=== PATIENT | male | born 1960 | race Caucasian/White ===

== ENCOUNTER 2022-11-17 22:01 | Emergency (ER) | payer OTHER, SELFPAY ==
--- NOTE | ~2022-11-17 | XR_ITS ---
EXAM: XR hand LT min 3V DATE: 11/17/2022 22:25 HISTORY: 4TH digit degloving . COMPARISON: None available. FINDINGS: Normal mineralization. Osseous avulsion of a portion of the tip of the fourth distal phala nge. Nondisplaced oblique intra-articular fracture of proximal aspect of the fourth distal phalange. No lytic or blastic lesion. Scattered degenerative changes. No erosion or periosteal change. Linear r adiopaque foreign body in the palmar soft tissues, roughly at the level of the distal aspect of the f ourth and fifth metacarpal interspace. Soft tissue defect over the tip of the fourth digit. IMPRESSION: Osseous avulsion of a portion of the tip of the left fourth distal phalange, with overlyi ng soft tissue defect. Nondisplaced oblique intra-articular fracture of the proximal aspect of the le ft fourth distal phalange. Linear radiopaque foreign body in the palmar soft tissues. Reviewed, dictated and finalized at location K. IMPRESSION: Osseous avulsion of a portion of the tip of the left fourth distal phalange, with overlying soft tissue defect. Nondisplaced oblique intra-articul ar fracture of the proximal aspect of the left fourth distal phalange. Linear r adiopaque foreign body in the palmar soft tissues.
[2022-11-17 22:07] VITALS: BP 187/99; PULSE 64; RESP 18; TEMP 37.2; O2SAT 97
[2022-11-17] MEDS: TETANUS,DIPHTHERIA,AC PERTUSSIS ADULT (0.5 ML) BOOSTRIX IM (22:28)
--- NOTE | 2022-11-17 22:34 | ED.WOUNDLAC ---
HPI - Wound/Laceration General Chief Complaint: Wound/Laceration Stated Complaint: left middle finger laceration Time Seen by Provider: 11/17/22 22:14 History of Present Illness HPI narrative: This is a 62-year-old male with no significant past medical history, who presents to the emergency department after getting his left fourth finger caught in a treadmill. He states the treadmill ripped the skin off the end of his finger. He denies other injury or loss of consciousness. Related Data Allergies Allergy/AdvReac Type Severity Reaction Status Date / Time No Known Allergies Allergy Verified 11/17/22 22:03 Review of Systems Review of Systems: CONSTITUTIONAL: Denies fever, chills, or sweats. CARDIOVASCULAR: Denies chest pain, palpitations, or edema. RESPIRATORY: Denies cough or dyspnea. GASTROINTESTINAL: Denies abdominal pain, nausea, vomiting, or diarrhea. MUSCULOSKELETAL: Left hand pain denies back pain, or myalgia. NEUROLOGIC: Denies headache, numbness, dizziness, or weakness. PSYCHIATRIC: Denies anxiety or depression. [facility] Social History Social History (Updated 11/18/22 @ 06:33 by Bubba Valera MD) Smoking status: Never smoker Alcohol intake: never Substance use: never Exam Narrative: GENERAL: Well-developed, well-nourished, appears anxious HEAD: Normocephalic, atraumatic. EYES: PERRLA and EOMI. ENT: Nares clear, no rhinorrhea or epistaxis. Mucous membranes moist. Oropharynx without tonsillar hypertrophy exudate or other lesions. CHEST: Clear to auscultation. No respiratory distress. No wheezes rales or rhonchi HEART: Regular rate and rhythm. No murmur heard. Normal peripheral pulses. ABDOMEN: Soft, nontender, nondistended, normal active bowel sounds. EXTREMITIES: The skin and nail of the left distal fourth finger is completely and circumferentially avulsed from approximately half of the distal phalange. There is exposed bone with a small amount of active bleeding which stops with direct pressure. Range of motion of all fingers intact. No edema. SKIN: Otherwise warm, dry, no rash. NEURO: No focal deficits. Alert and oriented x3. PSYCH: Normal mood and affect. Course Course Emergency Course: 22:34 - X-ray demonstrates a fracture at the proximal, lateral aspect of the fourth distal phalanx in addition to fracture of the most distal portion of the same distal phalanx. Discussed the patient with hand surgeon, Dr. Amaya who recommends antibiotics, tetanus vaccination wound coverage with Xeroform and follow-up first thing in the morning for surgical evaluation. Discussed findings and recommendations with the patient and his spouse, who voiced understanding and are comfortable with the plan. All questions answered to their satisfaction. 22:45 - Digital block performed by me for pain control. Vital Signs Vital signs: Vital Signs Temperature 98.9 F 11/17/22 22:07 Pulse Rate 64 11/17/22 22:07 Respiratory Rate 18 11/17/22 22:07 Blood Pressure 187/99 H 11/17/22 22:07 Pulse Oximetry 97 11/17/22 22:07 Oxygen Delivery Room Air 11/17/22 22:07 Temperature 98.9 F 11/17/22 22:07 Pulse Rate 64 11/17/22 22:07 Respiratory Rate 18 11/17/22 22:07 Blood Pressure 187/99 H 11/17/22 22:07 Pulse Oximetry 97 11/17/22 22:07 Oxygen Delivery Room Air 11/17/22 22:07 Procedures Nerve Block Nerve Block 1: Nerve block date: 11/17/22 Nerve block time: 22:45 Time out performed: Yes Local Anesthetic: lidocaine 2% Amount of anesthesia used (mL): 2 Side: left Nerve Blocks: digital (Left 4th digit) Procedure Successful: Yes Patient Tolerated Procedure: well and no complications Complications: none MDM - Wound/Laceration MDM Narrative Medical decision making narrative: Plan: Imaging, pain control, hand surgery consultation, antibiotics, tetanus vaccination, reassess Differential Diagnosis Differential diagnosis: Likely
[2022-11-17] MEDS: ceFAZolin 2 GM/D5W 50 ML 2 GM/50 ML BAG IVPB (22:49)
[2022-11-17] MEDS: oxyCODONE/ACETAMINOPHEN (*CRX) 5-325 MG TABLET 1 TABLET PO (22:54)
[2022-11-17] MEDS: LIDOCAINE 1% BUFFERED WITH 8.4% SODIUM BICARB 1 ML SYRINGE 20 ML INFILTRATE (23:03)
== END 2022-11-17 23:18 | disposition home or self-care (01) ==
PROVIDERS: Emergency Provider Preventive Medicine Aerospace Medicine; PCP Internal Medicine
DX: S61.215A Laceration without foreign body of left ring finger without damage to nail, initial encounter (principal); W23.0XXA Caught, crushed, jammed, or pinched between moving objects, initial encounter; Z23 Encounter for immunization
CPT/HCPCS: 64450; 73130; 90471; 90715; 96365; 99284; A9270; J0690

== ENCOUNTER 2023-04-01 08:19 | Outpatient (CLI) | payer OTHER, SELFPAY ==
--- NOTE | 2023-04-14 12:17 | WPDSLEEPSTUD ---
Sleep Study Date of Study: 04/01/23 Ordering Provider: Anthony Mazariegos, Interpreting Physician: Loretta Veronica MD Sleep Study Type: Split Polysomnogram Height: 1.73 m Weight: 122.47 kg Body Mass Index: 41.0 Neck Circumference (inches): 19 [place]: 13 Reason for Sleep Study Long history of obstructive sleep apnea, needs new equipment Sleep History Krish Leyva is a 62-year-old man who was diagnosed with obstructive sleep apnea 17 years ago, needs new equipment. He has hypertension. 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 He does not awaken from sleep feeling short of breath. He occasionally awakens at night with heartburn, belching or coughing. Using CPAP, he does not snore, he rarely awakens when he has a cold. He does not wake up gasping for breath at night. Without CPAP he occasionally has breathing problems at night observed by others. Without CPAP he occasionally sweats excessively at night. With CPAP he does not have palpitations at night, does not fall asleep during the day, does not fall asleep involuntarily or while driving. He does not have loss of muscle tone with strong emotion. He does not have daytime sleepiness using CPAP. He does not feel paralyzed on waking or falling asleep. He rarely has vivid dreamlike scenes upon awakening or falling asleep. Does not feel afraid to go to sleep. He does not have nightmares. He rarely remembers his dreams. He occasionally has racing thoughts. He occasionally feels sad or depressed. He rarely has anxiety. He occasionally has muscular tension. He rarely notices parts of his body jerking. He frequently kicks at night. He occasionally has crawling and aching feelings in his legs. He occasionally has leg pain at night. He does not have morning jaw pain. He occasionally grinds his teeth during sleep. As a child he had frequent bruxism. He occasionally is bothered by pain during the day. He rarely is awakened by pain at night. He occasionally wakes up feeling stiff the morning. He rarely wakes up with sore or achy muscles. He rarely wakes up with pain in the neck and spine. Normal bedtime is between 10:00 p.m. and 10:30 p.m.. He falls asleep within 5 minutes, sometimes 10 minutes but occasionally up to 1/2 hour. He wakes sometimes not at all at night, sometimes up to 3 times at night. He is able to fall asleep immediately after waking. His wake time during the week is 3:50 a.m.. On weekends, bedtime is between 11:00 p.m. and 12 midnight, and wake time is 8:30 a.m.. He estimates getting between 6 hours and 9 hours of sleep at night. Sometimes he takes naps on the weekends. A short nap lasting 10 or 15 minutes may be refreshing. He is usually drowsy for an hour after waking. He feels better in the evening after work, compared to other times of day. Habits: Quit tobacco 1997. Caffeine 2 cups a day. 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
[2023-04-14 12:33] VITALS: BMI 41.0
== END 2023-04-02 07:21 | disposition home or self-care (01) ==
PROVIDERS: PCP Internal Medicine; Visit Provider Internal Medicine
DX: G47.30 Sleep apnea, unspecified (principal)
CPT/HCPCS: 95811

== ENCOUNTER 2023-07-27 15:28 | Outpatient (CLI) | payer OTHER, SELFPAY ==
--- NOTE | ~2023-07-27 | MR_ITS ---
MRA HEAD History: Aneurysm Technique: 3D time of flight MRA of the head is performed. Findings: The right and left distal vertebral arteries and the basilar and posterior cerebral arterie s are normal. Right and left distal internal carotid arteries and anterior and middle cerebral arteri es are normal. There is no aneurysm, stenosis, or occlusion. Impression: No occlusion, stenosis, or aneurysm. Reviewed, dictated and finalized at location . 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
== END 2023-07-27 15:29 | disposition home or self-care (01) ==
PROVIDERS: PCP Internal Medicine; Visit Provider Family Medicine
DX: Z82.49 Family history of ischemic heart disease and other diseases of the circulatory system (principal)
CPT/HCPCS: 70544

== ENCOUNTER 2023-10-28 04:50 | Day surgery (SDC) | payer OTHER, SELFPAY ==
[2023-10-06 09:44] VITALS: BMI 41.8
--- NOTE | 2023-10-26 15:26 | SUR.PREOP ---
Pt 10/28/23 appointment time and date confirmed.
[2023-10-28 06:24] VITALS: BP 170/90; PULSE 66; RESP 20; TEMP 36.2; O2SAT 98
[2023-10-28] MEDS: LACTATED RINGERS 1,000 ML 150 ML IV CONT (06:43)
--- NOTE | 2023-10-28 06:44 | P.PNAN_ITS ---
Anes - Initial Pre Proc Eval Procedure: Operation Date: 10/28/23 07:30 Proposed Procedures p Screening Colonoscopy - Kirit Lopez MD Date/Time: 10/28/23 06:44 Surgeon: Kirit Lopez MD Pre Op Diagnosis: neoplasm screening Patient Data Age: 63 Gender: M Height: 1.73 m Weight: 126.7 kg Last Vital Signs Temp 36.2 C L 10/28/23 06:24 Pulse 66 10/28/23 06:24 Resp 20 10/28/23 06:24 BP 170/90 H 10/28/23 06:24 Pulse Ox 98 10/28/23 06:24 O2 Del Method Room Air 10/28/23 06:24 Allergies Allergy/AdvReac Type Severity Reaction Status Date / Time No Known Allergies Allergy Verified 10/28/23 06:21 Home Medications Medication Instructions Recorded Confirmed Type No Home Medications 10/06/23 10/06/23 History Patient hx anesthesia problems: none Family hx anesthesia problems: none Results Review: All pre-operative results and documents have been reviewed as part of the pre-operative evaluation. 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 Informed Consent: The patient's anesthetic plan and its attendant risks and benefits were discussed with the patient/family/POA. Questions were solicited and answers provided to the satisfaction of the patient/family/POA.
--- NOTE | 2023-10-28 07:32 | P.HP_ITS ---
History of Present Illness History of Present Illness Consent: Risks, benefits, and alternatives have been discussed and questions answered. Patient agrees to proceed with procedure. Chief complaint: neoplasm screening Narrative: Krish Leyva is a 63 year old male here for screening colonoscopy, last one 10 years ago Review of Systems Constitutional: Constitutional: Denies headache(s) and Denies weakness Eyes: Eyes: Denies blurry vision ENT: Reports Normal hearing present, Denies headache(s) and Denies neck pain Cardiovascular: Cardiovascular: Denies chest pain and Denies dyspnea Respiratory: Respiratory: Denies dyspnea Gastrointestinal: Gastrointestinal: Reports no additional gastrointestinal complaints Genitourinary: Genitourinary: Denies dysuria Musculoskeletal: Musculoskeletal: Denies neck pain Integumentary/Breasts: Skin/Breast: Denies dry skin Neurologic: Reports Normal hearing present, Denies headache(s) and Denies weakness Psychiatric: Psychiatric: Denies anxiety Endocrine: Endocrine: Denies change in body appearance Hematologic/Lymphatic: Hematologic/Lymphatic: Denies easy bleeding Allergic/Immunologic: Allergic/Immunologic: Denies urticaria PMFSH Past Medical History Medical History (Updated 10/28/23 @ 07:33 by Kirit Lopez MD) Colon cancer screening Hypertension Obstructive sleep apnea Social History Social History Smoking status: Never smoker Alcohol intake: current Drinks per week: 18 Alcohol use details: on weekends Substance use: never Substance use type: does not use Living arrangements: with family 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 Spiritual care concerns: No Meds Home Medications and Allergies Home Medications Medication Instructions Recorded Confirmed Type No Home Medications 10/06/23 10/06/23 History Allergies Allergy/AdvReac Type Severity Reaction Status Date / Time No Known Allergies Allergy Verified 10/28/23 06:21 Vital Signs Vital Signs - 24 hr 10/28/23 06:24 Temperature 97.2 F L Pulse Rate 66 Respiratory Rate 20 Blood Pressure 170/90 H Pulse Oximetry 98 Oxygen Delivery Room Air Exam Const: General: comfortable and no acute distress HENMT: Face/Nose/Sinus: Normal nares present Eyes: General: appearance normal, both eyes and all related structures Neck: Neck: no JVD Resp: Auscultation: clear to auscultation bilaterally Cardio: Rate: regular rate Rhythm: regular rhythm GI: Inspection: non-distended GI Palp: Yes Soft to palpation Skin: General skin exam: normal color Neuro: General: gait normal Speech: normal speech Extrem: General: normal to inspection Psych: Mental Status: mental status grossly normal Assessment and Plan Assessment and plan (1) Colon cancer screening: Code(s): Z12.11 - Encounter for screening for malignant neoplasm of colon Status: Acute Assessment and Plan: colonoscopy
[2023-10-28 07:47] VITALS: BP 129/82; PULSE 64; RESP 14; O2SAT 96
[2023-10-28 07:57] VITALS: BP 132/87; PULSE 61; RESP 12; O2SAT 98
[2023-10-28 08:07] VITALS: BP 134/72; PULSE 63; RESP 16; O2SAT 98
== END 2023-10-28 08:14 | disposition home or self-care (01) ==
PROVIDERS: PCP Family Medicine; Visit Provider Internal Medicine Gastroenterology
PROC: 0DJD8ZZ Inspection of Lower Intestinal Tract, Via Natural or Artificial Opening Endoscopic (ICD-10-PCS; CPT 45378; principal; 2023-10-28 07:30)
DX: Z12.11 Encounter for screening for malignant neoplasm of colon (principal); D12.5 Benign neoplasm of sigmoid colon; K57.30 Diverticulosis of large intestine without perforation or abscess without bleeding; I10 Essential (primary) hypertension; G47.33 Obstructive sleep apnea (adult) (pediatric); E66.01 Morbid (severe) obesity due to excess calories; Z68.41 Body mass index [BMI] 40.0-44.9, adult
CPT/HCPCS: 45385; 88305; J2704; J7120

== ENCOUNTER 2024-08-13 08:04 | Outpatient (CLI) | payer OTHER, SELFPAY ==
--- NOTE | ~2024-08-13 | US_ITS ---
EXAMINATION: US aorta DATE: 08/13/2024 09:04 INDICATION: Benign hypertension. TECHNIQUE: Grayscale, color Doppler, and pulsed Doppler images of the aorta and common iliac arteries were obtained. COMPARISON: None. FINDINGS: The proximal aorta measures 2.9 cm. The mid aorta measures 2.3 cm. The distal aorta measures 2.1 cm. The right and left common iliac arteries are not visualized. IMPRESSION: 1. Normal caliber abdominal aorta. Reviewed, dictated and finalized at location A.
--- OUTSIDE RECORDS SUMMARY | 2024-08-19 03:21 | XMS_ITS | Encounter Summary ---
Author Organization [facility] Address [address] [place] [address] Care Team Providers Care Agriculture Mechanic Name Role Phone Anthony Mazariegos MD Primary Care Provider [phone] Encounter Details Date Type Department Care Team (Late st Contact Info) Description 12/13/2023 External Device Data [facility] ABSTRACTION Provider, Abstract NO ADDRESS ON FILE Social History Tobacco Use Types Packs/Day Years Used Date Smoking Tobacco: Former Cigarettes 1 20 0 03/02/1978 - 03/02/1998 Smokeless Tobacco: Never Comments:21 years since my w kala & I quit Alcohol Use Standard Drinks/Week Comments Yes 18 (1 standard drink = 0.6 oz pure alcohol) drink Tuesday and Tuesday Sex and Gender Information Value Date Recorded Sex Assigned at Not on file Gender Identity Not on file Sexual Orientation Not on file documented as of this encounter Plan of Treatment Upcoming Encounters Date Type Department Care Team (Late st Contact Info) Description 10/08/2024 1:30 PM INTEGRATED 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
--- OUTSIDE RECORDS SUMMARY | 2024-08-19 03:21 | XMS_ITS | Encounter Summary ---
Author Organization [facility] Address [address] [place] [address] Care Team Providers Care Hospice Superintendent Name Role Phone Anthony Mazariegos MD Primary Care Provider [phone] Reason for Visit * Reason Comments Hypertension BP Follow up patient takes a natural supplement for his blood pressure. Encounter Details Date Type Department Care Team (Late st Contact Info) Description 12/16/2023 3:00 PM CDT Office Visit [facility] at Work [employer] [place] [address] [place] [address] Sarah Weiss, [facility] [address] [place] [address] Elevated BP without diagnosis of hypertension (Primary Dx); Screening for prostate cancer Social History Tobacco Use Types Packs/Day Years [...] on file documented as of this encounter Last Filed Vital Signs Vital Sign Reading Time Taken Comments Blood Pressure 132/84 12/16/2023 2:46 PM CDT Pulse 76 12/16/2023 2:46 PM CDT Temperature 37.6 ??C (99.7 ??F) 12/16/2023 2:46 PM CD T Respiratory Rate 18 12/16/2023 2:46 PM CDT Oxygen Saturation 97% 12/16/2023 2:46 PM CDT Inhaled Oxygen Concentration - - Weight 128.8 kg (284 lb) 12/16/2023 2:46 PM CDT Height 172.7 cm (5' 8 ) 12/16/2023 2:46 PM CDT Body Mass Index 43.18 12/16/2023 2:46 PM CDT documented in this encounter Progress Notes * Sarah Weiss DNP - 12/16/2023 3:04 PM CDT OFFICE VISIT PROGRESS NOTE DATE: 12/16/2023 PATIENT: Krish Leyva : 1960 PCP: Anthony Mazariegos MD Chief Complaint Patient presents with Hypertension BP Follow up patient takes a natural supplement for his blood pressure. HISTORY OF PRESENT ILLNESS Pt presents to f/u on his BP. Last visit bp was elevated. He has been taking supplements (see med list) to control his bp and declines prescription medication. He walks and stretches 4xs weekly for 20 mins. He tries to stay mobile. Denies cp, sob, reed. BP Readings from Last 4 Encounters: 12/16/23 132/84 07/18/23 (!) 160/90 01/07/23 134/82 08/06/22 (!) 146/84 PHQ-2 & PHQ-9 Little interest or pleasure in doing things: Not at all (12/16/23 1500) Feeling down, depressed, or hopeless: Not at all (12/16/23 1500) PHQ-2 Total: 0 (12/16/23 1500) Trouble falling or staying asleep, or sleeping too much: Not at all (12/16/23 1500) Feeling tired or having little energy: Several Days (12/16/23 1500) Poor appetite or overeating: Not at all (12/16/23 1500) Feeling bad about yourself-or that you are a failure or have let yourself or your family down: Not at all (12/16/23 1500) Trouble concentrating on things, such as reading the newspaper or watching television: Not at all (12/16/23 1500) Moving or speaking so slowly that other people could have noticed. Or the opposite-being so fidgetyor restless that you have been moving around a lot more than usual: Not at all (12/16/23 1500) Thoughts that you would be better off , or of hurting yourself in some way: Not at all (12/16/231499) PHQ-9 Total: 1 (12/16/231499) Anxiety Disorder (GAD7): If you checked off any problems, how difficult have these made it for you to do your work, take care of things at home, or get along with other people?: Not difficult (12/16/23 1500) PAST MEDICAL HISTORY: Past Medical History: Diagnosis Date Arthritis some but excercise helps History of chicken pox Measles Mumps Sleep apnea PAST SURGICAL HISTORY Past Surgical History: Procedure Laterality Date HX SEPTOPLASTY 1983 HX SURGICAL OTHER 2012 bone spur removal PT DENIES RELEVANT SURGICAL HISTORY 7 years ago foot bone spur removed CURRENT MEDICATIONS Current Outpatient Medications Medication Sig Dispense Refill OTHER Provider please include Medication name, dose, route and frequency OTHER Take 3 Tablets by mouth. Dick's Blood Pressure Factor: with calcium, magnesium, and Sheridan kuhn. 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 Pressure-Lo: blend of vitamins and minerals including potassium, magnesium, and niacin. Per pt, he takes 6 tablets three times a week No current facility-administered medications for this visit. ALLERGIES No Known Allergies TOBACCO COUNSELING He is not a tobacco/nicotine user. REVIEW OF SYSTEMS As in HPI PHYSICAL EXAMINATION BP 132/84 (BP Location: Left arm, Patient Position (BP): Sitting, BP Cuff Size: Adult) Pulse 76 Temp 99.7 ??F (37.6 ??C) (Tympanic) Resp 18 Ht 5' 8 (1.727 m) Wt 128.8 kg (284 lb) SpO2 97% BMI 43.18 kg/m?? Gen - AAO, NAD Head- normocephalic/atraumatic. Eyes - PERRL, EOMI, noninjected Nose - nasal mucosa pink and moist. Mouth - mucosa pink and moist. Heart - RRR, no m/r/g Lungs - CTAB, no w/r/r Ext - no c/c/e. Normal peripheral pulses Neuro - Facial features symmetric. Normal speech and voice. Normal gait. A/P Krish was seen today for hypertension. Diagnoses and all orders for this visit: Elevated BP without diagnosis of hypertension Screening for prostate cancer - PSA,TOTAL AND FREE; Future PATIENT INSTRUCTIONS Work on diet & exercise. Keep an eye on bps by taking bp at rest once weekly and keeping log. FOLLOW UP Data Unavailable Sarah Weiss DNP 12/16/2023 [facility] AT [address] [address] documented in this encounter Miscellaneous Notes * Patient Instructions - Sarah Weiss DNP - 12/16/2023 3:17 PM CDT Please take your blood pressure twice weekly with your feet resting on floor and arm on a table at heart level for 5 mins prior to taking. Do not smoke or have caffeine for 30 mins prior. Record yourreadings twice daily and review with your primary care provider. [place] [employer] recommends a bp of 130's/80's or less for most adults. Eat a well balanced diet and try to move more. documented in this encounter Plan of Treatment Upcoming Encounters Date Type Department Care Team (Late st Contact Info) Description 10/08/2024 1:30 PM SPEAKER WIRER Office Visit [address] [place] [address] Ashli Yusuf, ANP [address] [facility] Drew Ramirez [address] [address] documented as of this encounter Results * (ABNORMAL) PSA,TOTAL AND FREE (12/23/2023 7:23 AM CDT) PSA 0.6 < OR = 4.0 ng/mL [facility] PSA FREE 0.1 ng/mL [facility] % FREE PSA 17(L) >25 % (calc) [facility] Comment: PSA(ng/mL) ?Free PSA(%) ? Estimated(x) Probability ? of Cancer(as%) 0-2.5 ?(*) ? Approx. 1 2.6-4.0(1) ? 0-27(2) ? 24(3) 4.1-10(4) ?0-10 ?56 ? 11-15 ? 28 ? 16-20 ? 20 ? 21-25 ? 16 ? >or =26 ? 8 >10(+) ? N/A ?>50 References:(1)Angelo et al.:Urology 60: 469-474 (2002) ? (2)Ariadna.:J.Urol 168: 922-925 (2002) ?Free PSA(%) ?? Sensitivity(%) ??Specificity(%) ?< or = 25 ?85 ?19 ?< or = 30 ?93 ? 9 ? (3)Angelo et al.:RITA 277: 1893-3771 (1996) ? (4)Catalona et al.:RITA 279: 0113-0771 (1997) (x)These estimates vary with age, ethnicity, family ?? history and CLAUDIA results. (*)The diagnostic usefulness of % Free PSA has not been ?? established in patients with total PSA below 2.6 ng/mL (+)In men with PSA above 10 ng/mL, prostate cancer risk is ?? determined by total PSA alone. The Total PSA value from this assay system is standardized against the equimolar PSA standard. The test result will be approximately 20% higher when compared to the WHO-standardized Total PSA (Siemens assay). Comparison of serial PSA results should be interpreted with this fact in mind. PSA was performed using the Osito Nanda Immunoassay method. Values obtained from different assay methods cannot be used interchangeably. PSA levels, regardless of value, should not be interpreted as absolute evidence of the presence or absence of disease. Test Performed at: [address] ??[phone] Ajay Das Blood 12/23/2023 7:23 AM CDT 12/24/2023 1:21 AM CDT Sarah Weiss DNP CHEMISTRY ORDERABLES [facility] [phone] [address] documented in this encounter Visit Diagnoses Diagnosis Elevated BP without diagnosis of hypertension- Primary Screening for prostate cancer Special screening for malignant neoplasm of prostate documented in this encounter Care Teams Hospice Superintendent Relationship Specialty Start Date End Date Anthony Mazariegos MD [address] [place] [address] PCP - General Internal Medicine 01/07/23 06/10/24 documented as of this encounter
--- OUTSIDE RECORDS SUMMARY | 2024-08-19 03:21 | XMS_ITS | Encounter Summary ---
Author Organization [facility] Address [address] [place] [address] Care Team Providers Care Auger Machine Offbearer Name Role Phone Anthony Mazariegos MD Primary Care Provider [phone] Reason for Visit * Reason Comments Labs Only Encounter Details Date Type Department Care Team (Late st Contact Info) Description 01/07/2023 8:20 AM CDT Office Visit [facility] at [facility] [place] [address] [place] [address] Screening for condition (Primary Dx) Social History Tobacco Use Types Packs/Day Years [...] Sign Reading Time Taken Comments Blood Pressure 134/82 01/07/2023 8:09 AM CDT Pulse - - Temperature - - Respiratory Rate - - Oxygen Saturation - - Inhaled Oxygen Concentration - - Weight 123.8 kg (273 lb) 01/07/2023 8:09 AM CDT Height 172.7 cm (5' 8 ) 01/07/2023 8:09 AM CDT Body Mass Index 41.51 01/07/2023 8:09 AM CDT documented in this encounter Progress Notes * Monica Cortés - 01/07/2023 8:19 AM CDT Left arm documented in error. Pt came in for blood draw, right AC successful, 1 stick pt tolerated well. Drawn by Venkat TEJEDA. documented in this encounter Miscellaneous Notes * Result Encounter Note - Ashli Grijalva NP - 01/10/2023 7:31 AM CDT Comprehensive metabolic panel demonstrated normal electrolytes, liver and kidney function. Complete blood count which looks for infection, anemia, and platelets (helps with blood clotting) was normal. Thyroid is within normal range. Cholesterol levels are at goal. documented in this encounter Plan of Treatment Upcoming Encounters Date Type Department Care Team (Late st Contact Info) Description 10/08/2024 1:30 PM OFFICE BOOKKEEPER Office Visit [facility] [place] [address] [place] [address] Ashli Yusuf, ANP [phone] [facility] Drew Ramirez [facility] [address] [place] [address] documented as of this encounter Procedures Procedure Name Priority Date/Time Associated Diagnosis Comments CBC WITH DIFFERENTIAL Routine 01/07/2023 8:11 AM CDT Screening for condition TSH Routine 01/07/2023 8:11 AM CDT Screening for condition LIPID PANEL Routine 01/07/2023 8:11 AM CDT Screening for condition COMPREHENSIVE METABOLIC PANEL Routine 01/07/2023 8:11 AM CDT Screening for condition documented in this encounter Results * TSH (01/07/2023 8:11 AM CDT) TSH 1.93 0.40 - 4.50 mIU/L [facility] Comment: Test Performed at: [facility] [address] [place], [place] ??[address] Kristi Manzano MD Blood 01/07/2023 8:11 AM CDT 01/08/2023 5:37 AM CDT Ashli Grijalva FROZEN FOOD DEPARTMENT MANAGER CHEMISTRY ORDERAB LES [facility] [phone] [address] * LIPID PANEL (01/07/2023 8:11 AM CDT) CHOLESTEROL 142 <200 mg/dL [facility] HDL 47 > OR = 40 mg/dL [facility] TRIGLYCERIDE 67 <150 mg/dL [facility] LDL CALCULATED 81 mg/dL (calc) [facility] Comment: Reference range: <100 Desirable range <100 mg/dL for primary prevention; ?? <70 mg/dL for patients with CHD or diabetic patients with > or = 2 CHD risk factors. LDL-C is now calculated using the Abhi-Ybarra calculation, which is a validated novel method providing better accuracy than the Friedewald equation in the estimation of LDL-C. Abhi SS et al. RITA. 2013;310(19): 0835-4723 (http://education.Spectral Image.Playnomics/faq/SED955) CHOL/HDL RATIO 3.0 <5.0 (calc) [facility] TOTAL NON-HDL CHOL(LDL+VLDL) 95 <130 mg/dL (calc) [facility] Comment: For patients with diabetes plus 1 major ASCVD risk factor, treating to a non-HDL-C goal of <100 mg/dL (LDL-C of <70 mg/dL) is considered a therapeutic option. Test Performed at: [facility] ??[phone] Kristi Manzano MD Blood 01/07/2023 8:11 AM CDT 01/08/2023 5:37 AM CDT Ashli Grijalva FROZEN FOOD DEPARTMENT MANAGER CHEMISTRY ORDERAB LES [facility] [phone] [facility] [address] [address] * COMPREHENSIVE METABOLIC PANEL (01/07/2023 8:11 AM CDT) GLUCOSE 98 65 - 99 mg/dL [facility] Comment: ? Fasting reference interval BUN 20 7 - 25 mg/dL [facility] CREATININE 0.87 0.70 - 1.35 mg/dL [facility] GFR 96 > OR = 60 mL/min/1. 73m2 [facility] Comment: The eGFR is based on the CKD-EPI 2020 equation. To calculate the new eGFR from a previous Creatinine or Cystatin C result, go to https://www.kidney.org/professionals/ kdoqi/gfr%5Fcalculator BUN/CREAT RATIO NOT APPLICABLE 6 - 22 (calc) [facility] SODIUM 141 135 - 146 mmol/L [facility] POTASSIUM 4.3 3.5 - 5.3 mmol/L [facility] CHLORIDE 104 98 - 110 mmol/L [facility] CO2 23 20 - 32 mmol/L [facility] CALCIUM 9.5 8.6 - 10.3 mg/dL [facility] TOTAL PROTEIN 6.6 6.1 - 8.1 g/dL [facility] ALBUMIN 4.5 3.6 - 5.1 g/dL [facility] GLOBULIN 2.1 1.9 - 3.7 g/dL (calc) [facility] ALBUMIN/GLOBULI N RATIO 2.1 1.0 - 2.5 (calc) [facility] BILIRUBIN TOTAL 0.9 0.2 - 1.2 mg/dL [facility] ALKALINE PHOSPHATASE 49 35 - 144 U/L [facility] AST 24 10 - 35 U/L [facility] ALT 32 9 - 46 U/L [facility] Comment: Test Performed at: [facility] [address] [place], [place] ??[address] Kristi Manzano MD Blood 01/07/2023 8:11 AM CDT 01/08/2023 5:37 AM CDT Ashli Grijalva FROZEN FOOD DEPARTMENT MANAGER CHEMISTRY ORDERAB LES [facility] [phone] [facility] [address] [place] [address] * CBC WITH DIFFERENTIAL (01/07/2023 8:11 AM CDT) WBC 6.0 3.8 - 10.8 Thousand/u L [facility] RBC 4.64 4.20 - 5.80 Million/uL [facility] HEMOGLOBIN 15.0 13.2 - 17.1 g/dL [facility] HEMATOCRIT 44.4 38.5 - 50.0 % [facility] MCV 95.7 80.0 - 100.0 fL [facility] MCH 32.3 27.0 - 33.0 pg [facility] MCHC 33.8 32.0 - 36.0 g/dL [facility] RDW 13.4 11.0 - 15.0 % [facility] PLATELETS 198 140 - 400 Thousand/u L [facility] MPV 11.3 7.5 - 12.5 fL [facility] NEUTROPHIL ABSOLUTE 3,798 1,500 - 7,800 cells/uL [facility] LYMPHOCYTE ABSOLUTE 1,578 850 - 3,900 cells/uL [facility] MONOCYTE ABSOLUTE 450 200 - 950 cells/uL [facility] EOSINOPHIL ABSOLUTE 132 15 - 500 cells/uL [facility] BASOPHILS ABSOLUTE 42 0 - 200 cells/uL [facility] NEUTROPHIL 63.3 % [facility] LYMPHOCYTES 26.3 % [facility] MONOCYTE 7.5 % [facility] EOSINOPHILS 2.2 % [facility] BASOPHILS 0.7 % [facility] Comment: Test Performed at: [facility] [address] [place], [place] ??[address] Kristi Manzano MD Blood 01/07/2023 8:11 AM CDT 01/08/2023 5:37 AM CDT Ashli Grijalva FROZEN FOOD DEPARTMENT MANAGER HEMATOLOGY ORDERA BLES Performing Organization Address City/State/[facility] Co de Phone Number [facility] [phone] [facility] [address] [place] [address] documented in this encounter Visit Diagnoses Diagnosis Screening for condition- Primary Screening for unspecified condition documented in this encounter Care Teams Auger Machine Offbearer Relationship Specialty Start Date End Date Anthony Mazariegos MD [address] [facility] [address] [place] [address] PCP - General Internal Medicine 01/07/23 06/10/24 documented as of this encounter
--- OUTSIDE RECORDS SUMMARY | 2024-08-19 03:21 | XMS_ITS | Encounter Summary ---
Author Organization [facility] Address [address] [place] [address] Care Team Providers Care Airbrush Artist Technical Name Role Phone Anthony Mazariegos MD Primary Care Provider [phone] Reason for Referral * Eval and Treat (Routine) - Open Specialty Diagnoses / Procedures Referred By Contac t Referred To Contact Audiology Diagnoses Hearing loss, unspecified hearing loss type, unspecified laterality Procedures AR OFFICE/OUTPATIENT ESTABLISHED MOD MDM 30 MIN AR OFFICE/OUTPATIENT NEW MODERATE MDM 45 MINUTES Naomi Duenas MD [address] [place] [address] Referral ID Status Reason Start Date Expiration Date Visits Re quested Visits Authorized [id number] Open 02/17/2024 02/16/2025 1 1 Reason for Visit * Reason Comments Referral Request Hearing loss Encounter Details Date Type Department Care Team (Late st Contact Info) Description 02/17/2024 7:30 AM CDT Office Visit [facility] at Work [employer] [place] [address] [place] [address] Naomi Duenas MD [address] [place] [address] Hearing loss, unspecified hearing loss type, unspecified laterality (Primary Dx); Benign hypertension; WALI (obstructive sleep apnea) Social History Tobacco Use Types Packs/Day Years [...] Sign Reading Time Taken Comments Blood Pressure 168/100 02/17/2024 7:17 AM CDT Pulse 62 02/17/2024 7:17 AM CDT Temperature 37.4 ??C (99.3 ??F) 02/17/2024 7:17 AM CD T Respiratory Rate 18 02/17/2024 7:17 AM CDT Oxygen Saturation 95% 02/17/2024 7:17 AM CDT Inhaled Oxygen Concentration - - Weight 128.8 kg (284 lb) 02/17/2024 7:17 AM CDT Height 172.7 cm (5' 8 ) 02/17/2024 7:17 AM CDT Body Mass Index 43.18 02/17/2024 7:17 AM CDT documented in this encounter Progress Notes * Naomi Duenas MD - 02/17/2024 7:31 AM CDT HISTORY OF PRESENT ILLNESS Krish Leyva, a 63 y.o. male presents with a Chief Complaint of Referral Request (Hearing loss) Subjective HPI Was in . Exposed to loud noises which damaged his hearing. He request referral to audiology. Needed to pursue claim. Currently with outside PCP. PCP no longer takes his insurance. Discussed transferring his care to clinic. He is agreeable and will schedule accorcingly BP elevated today. History htn for which he takes an OTC supplement. Does not want to take prescription medication. States he watches salt in diet, exercises daily. Has BP cuff at home which he can use. Right side higher than left usually. Denies CP, SHORTNESS OF BREATH, focal weakness numbness or tingling. Compliant with cpap. All [facility] wellness labs- normal in November REVIEW OF SYSTEMS Review of Systems as in HPI Objective PHYSICAL EXAM BP (!) 168/100 (BP Location: Left arm, Patient Position (BP): Sitting, BP Cuff Size: Large Adult) Pulse 62 Temp 99.3 ??F (37.4 ??C) (Tympanic) Resp 18 Ht 5' 8 (1.727 m) Wt 128.8 kg (284 lb) SpO2 95% BMI 43.18 kg/m?? Bp per my check- 150/ 98 right, 150/100 left Physical Exam Constitutional: Appearance: He is obese. Cardiovascular: Rate and Rhythm: Normal rate and regular rhythm. Pulmonary: Effort: Pulmonary effort is normal. Breath sounds: Normal breath sounds. Musculoskeletal: Right lower leg: No edema. Left lower leg: No edema. Neurological: Mental Status: He is alert. Psychiatric: Mood and Affect: Mood normal. Procedures Assessment ASSESSMENT and PLAN: ICD-10-CM ICD-9-CM 1. Hearing loss, unspecified hearing loss type, unspecified laterality H91.90 389.9 AMB REFERRAL TOAUDIOLOGY 2. Benign hypertension I10 401.1 Check home blood pressure readings and bring with home cuff to next visit 3. WALI (obstructive sleep apnea) G47.33 327.23 Compliant with CPAP Schedule follow up appointment for bp ck as well as establishing physical documented in this encounter Plan of Treatment Upcoming Encounters Date Type Department Care Team (Late st Contact Info) Description 10/08/2024 1:30 PM PRODUCER ASSISTANT Office Visit [facility] [employer] [place] [address] [place] [address] Ashli Yusuf, ANP [address] [facility] [employer] [facility] [address] [place] [address] Scheduled Referrals Name Type Priority Associated Diagnoses Orde r Schedule AMB REFERRAL TO AUDIOLOGY Outpatient Referral Routine Hearing loss, unspecified hearing loss type, unspecified laterality Ordered: 02/17/2024 documented as of this encounter Visit Diagnoses Diagnosis Hearing loss, unspecified hearing loss type, unspecified laterality- Primary Benign hypertension Essential hypertension, benign WALI (obstructive sleep apnea) Obstructive sleep apnea (adult) (pediatric) documented in this encounter Care Teams Airbrush Artist Technical Relationship Specialty Start Date End Date Anthony Mazariegos MD [address] [facility] [address] [place] [address] PCP - General Internal Medicine 01/07/23 06/10/24 documented as of this encounter
--- OUTSIDE RECORDS SUMMARY | 2024-08-19 03:21 | XMS_ITS | Encounter Summary ---
Author Organization [facility] Address [address] [place] [address] Care Team Providers Care Trailer Rental Clerk Name Role Phone Anthony Mazariegos MD Primary Care Provider [phone] Reason for Visit * Reason Onset Date Comments Medication Refill 04/26/2024 Encounter Details Date Type Department Care Team (Late st Contact Info) Description 04/26/2024 Refill [facility] [place] [address] [place] [address] Ashli Yusuf, ANP [address] [facility] [address] [place] [address] Benign hypertension Social History Tobacco Use Types Packs/Day Years [...] on file documented as of this encounter Miscellaneous Notes * Telephone Encounter - AdrielSapna - 04/26/2024 9:38 AM CDT Last refilled: 03/30/24 Quantity given: 30 Number of refills: 0 Last appointment: 03/30/24 Next appointment: 09/09/24 Last Labs: 12/23/23 documented in this encounter Plan of Treatment Upcoming Encounters Date Type Department Care Team (Late st Contact Info) Description 10/08/2024 1:30 PM RAILROAD DETECTIVE Office Visit [facility] at Work [employer] [place] [address] [place] [address] Ashli Yusuf, ANP [address] [facility] [address] [place] [phone] documented as of this encounter Visit Diagnoses Diagnosis Benign hypertension Essential hypertension, benign documented in this encounter Care Teams Trailer Rental Clerk Relationship Specialty Start Date End Date Anthony Mazariegos MD [address] [facility] [address] [place] [phone] PCP - General Internal Medicine 01/07/23 06/10/24 documented as of this encounter
--- OUTSIDE RECORDS SUMMARY | 2024-08-19 03:21 | XMS_ITS | Clinical Summary ---
Author Organization [facility] [employer] Address [address] [place] [address] Care Team Providers Care Senior Solutions Architect Name Role Phone Naomi Duenas MD Primary Care Provider [phone] Allergies No known active allergies Medications Medication Sig Dispensed Refills Start Date End Date Status cpap medical deviceIndications:WALI (obstructive sleep apnea) CPAP 1 Each 08/06/2022 Active OTHER Take 3 Tablets by mouth. Dick's Blood Pressure Factor: with calcium, magnesium, and [place] kuhn. Per pt, he takes 3 tablets weekly Active Irbesartan (AVAPRO) 75 mg tabletIndications:Ced ign hypertension,Hyperten nanci, uncontrolled Take 1 Tablet (75 mg) by mouth daily. 90 Tablet 07/09/2024 Active Active Problems Problem Noted Date Diagnosed Date Pre-diabetes 07/03/2024 WALI (obstructive sleep apnea) - on CPAP 06/11/20 24 Hypertension, uncontrolled 07/18/[address] air [address] pressure (CPAP) ventilation at home 06/13/2020 Bilateral hearing loss 06/15/2019 Bilateral tinnitus 06/15/2019 Family history of colon cancer 12/23/2017 Obesity 08/16/2017 Resolved Problems Problem Noted Date Diagnosed Date Resolved Date Sleep apnea 03/30/2024 06/11/2024 Encounters Date Type Department Care Team Description 07/09/2024 1:30 PM RETAIL COMMISSION SALES ASSOCIATE Office Visit [facility] Work [facility] [place] [address] [place] [address] Ashli Yusuf, AIMEE Benign hypertension (Primary Dx); Pre-diabetes; History of cigarette smoking; Hypertension, uncontrolled; Needs flu shot; Need for pneumococcal vaccination 07/02/2024 1:20 PM RETAIL COMMISSION SALES ASSOCIATE Clinical Support [facility] [place] [address] [place] [address] Elevated fasting glucose; Hypertension, uncontrolled 06/27/2024 External Device Data STL ABSTRACTION Provider, Abstract 06/11/2024 1:30 PM CDT Office Visit [facility] [place] [address] [place] [address] Ashli Yusuf, AIMEE Hypertension, uncontrolled (Primary Dx); WALI (obstructive sleep apnea); Elevated fasting glucose from Last 3 Months Immunizations Name Administration Dates Next Due (ADACEL/BOOSTRIX)(10 YR UP) TDAP VACCINE, 0.5ML, IM 08/29/2015 (PFIZER)(12 YR UP) COVID-19 VACCINE - EMERGENCY USE AUTHORIZATION, MRNA, [id number](PF) 30 MCG/0.3 ML IM SUSP 12/07/2020,11/16/2020 (SHINGRIX)(50 YRS UP) ZOSTER VACCINE RECOMBINANT, 0.5 ML, IM 02/27/2018,12/23/2017 INFLUENZA VACCINE QUADRIVALENT 6 MOS UP IM 06/11,06/15/2018 INFLUENZA VACCINE QUADRIVALENT 6 MOS UP PF IM ,05/27/2020 INFLUENZA VACCINE TRIVALENT SPLIT VIRUS, (6 MOS UP), 0.5ML (PF), IM 07/09/2024 Tetanus Toxoid, Adsorbed 04/25/2015 Family History Medical History Relation Name Comments Colon Cancer Brother 1 amalia leyva Cancer Brother 2 Dick Leyva Hodgkin's lymp astrid & throat removed Heart Attack Father Lalo Leyva Heart Disease Father Lalo Leyva Hypertension Father Lalo Leyva Unknown Maternal Grandfather unknown Unknown Maternal Grandmother Smooth Aneurysm Mother Hypertension Paternal Grandfather Jorge Gordon Hypertension Paternal Grandmother Sary Gordon Breast Cancer Sister 1 marty duran Cancer Sister 1 marty roger Aneurysm Sister 2 Relation Name Status Comments Brother 1 amalia leyva Brother 2 Dick Leyva Father Lalo Leyva Maternal Grandfather unknown Maternal Grandmother Smooth Mother Paternal Grandfather Jorge Gordon Paternal Grandmother Sary Gordon Sister 1 marty duran Sister 2 Social History Tobacco Use Types Packs/Day Years [...] on file Sexual Orientation Not on file Last Filed Vital Signs Vital Sign Reading Time Taken Comments Blood Pressure 136/74 07/09/2024 1:40 PM RETAIL COMMISSION SALES ASSOCIATE Pulse 80 07/09/2024 1:18 PM RETAIL COMMISSION SALES ASSOCIATE Temperature 36.7 ??C (98.1 ??F) 07/09/2024 1:18 PM CS T Respiratory Rate 17 07/09/2024 1:18 PM RETAIL COMMISSION SALES ASSOCIATE Oxygen Saturation 96% 07/09/2024 1:18 PM RETAIL COMMISSION SALES ASSOCIATE Inhaled Oxygen Concentration - - Weight 130.2 kg (287 lb) 07/09/2024 1:18 PM RETAIL COMMISSION SALES ASSOCIATE Height 172.7 cm (5' 8 ) 07/09/2024 1:18 PM RETAIL COMMISSION SALES ASSOCIATE Body Mass Index 43.64 07/09/2024 1:18 PM RETAIL COMMISSION SALES ASSOCIATE Plan of Treatment Upcoming Encounters Date Type Department Care Team (Late st Contact Info) Description 10/08/2024 1:30 PM RETAIL COMMISSION SALES ASSOCIATE Office Visit [facility] at [facility] [place] [address] [place] [address] Ashli Yusuf, ANP [address] [place] [address] Health Maintenance Due Date Last Done Comments FIT-DNA Q 3 years 2003 FIT/FOBT Q 1 year 2003 Flex Sig/CT Colonography Q 5 years 2003 RSV VACCINE (60+ or ) (1 - Risk 60-74 years 1-dose series) 2018 Abdominal Aortic Aneurysm (A AA) Screening 2023 PNEUMOCOCCAL VACCINE 65+ YEA RS (1 of 1 - PCV) 2023 COVID-19 Vaccine (2023-2 5 season) 2024 12/07/2020, 11/16/2020 DTAP/TDAP/TD VACCINES (2 - T d or Tdap) 08/29/2025 08/29/2015 Pre-Diabetes and Diabetes Screening 07/02/2027 07/02/2024, 06/08/2021, 07/04/2020, Additional history exists COLORECTAL SCREENING 10/27/2033 10/28/2023, 09/29/2013 (Previously completed) Colorectal Cancer Screening 10/27/2033 ZOSTER VACCINE Completed 02/27/2018, 12/23/2017 Preventative Visit- Commercial Completed 03/30/2024 , 12/23/2017 INFLUENZA VACCINE Completed 07/09/2024, , 05/27/2020, Additional history exists Procedures Procedure Name Priority Date/Time Associated Diagnosis Comments BASIC METABOLIC PANEL Routine 07/02/2024 1:14 PM RETAIL COMMISSION SALES ASSOCIATE Hypertension, uncontrolled HEMOGLOBIN A1C Routine 07/02/2024 1:14 PM RETAIL COMMISSION SALES ASSOCIATE Elevated fasting glucose CT ECG ROUTINE ECG W/LEAST 12 LDS W/I&R Routine 06/11/2024 1:30 PM CDT Hypertension, uncontrolled from Last 3 Months Results * (ABNORMAL) HEMOGLOBIN A1C (07/02/2024 1:14 PM RETAIL COMMISSION SALES ASSOCIATE) HEMOGLOBIN A1C 5.7(H) <5.7 % of total Hgb [facility] Comment: For someone without known diabetes, a hemoglobin A1c value between 5.7% and 6.4% is consistent with prediabetes and should be confirmed with a follow-up test. For someone with known diabetes, a value <7% indicates that their diabetes is well controlled. A1c targets should be individualized based on duration of diabetes, age, comorbid conditions, and other considerations. This assay result is consistent with an increased risk of diabetes. Currently, no consensus exists regarding use of hemoglobin A1c for diagnosis of diabetes for children. ESTIMATED AVERAGE GLUCOSE (MG/DL) 117 mg/dL [facility] ESTIMATED AVERAGE GLUCOSE (MMOL/L) 6.5 mmol/L [facility] Comment: Test Performed at: [facility] [address] [place], [place] ??[phone] Kristi Manzano MD Blood 07/02/2024 1:14 PM RETAIL COMMISSION SALES ASSOCIATE 07/03/2024 6:46 AM RETAIL COMMISSION SALES ASSOCIATE Ashli Yusuf ANP CHEMISTRY ORDERABLES [facility] [phone] [facility] [address] [place] [address] * (ABNORMAL) BASIC METABOLIC PANEL (07/02/2024 1:14 PM RETAIL COMMISSION SALES ASSOCIATE) GLUCOSE 103(H) 65 - 99 mg/dL [facility] Comment: ? Fasting reference interval For someone without known diabetes, a glucose value between 100 and 125 mg/dL is consistent with prediabetes and should be confirmed with a follow-up test. BUN 22 7 - 25 mg/dL [facility] CREATININE 1.01 0.70 - 1.35 mg/dL [facility] GFR 83 > OR = 60 mL/min/1.7 3m2 [facility] BUN/CREAT RATIO SEE NOTE: 6 - 22 (calc) [facility] Comment: ?? Not Reported: BUN and Creatinine are within ?? reference range. ? SODIUM 143 135 - 146 mmol/L [facility] POTASSIUM 4.6 3.5 - 5.3 mmol/L [facility] CHLORIDE 107 98 - 110 mmol/L [facility] CO2 27 20 - 32 mmol/L [facility] CALCIUM 8.8 8.6 - 10.3 mg/dL [facility] Comment: Test Performed at: [facility] ??[phone] Kristi Manzano MD Blood 07/02/2024 1:14 PM RETAIL COMMISSION SALES ASSOCIATE 07/03/2024 6:46 AM RETAIL COMMISSION SALES ASSOCIATE Ashli Yusuf ANP CHEMISTRY ORDERABLES [facility] [phone] [facility] [address] [phone] * CT ECG ROUTINE ECG W/LEAST 12 LDS W/I&R (06/11/2024 1:30 PM CDT) Narrative [facility] - 06/11/2024 1:30 PM CDT Ashli Yusuf ANP ? 06/11/2024 ??2:16 PM EKG 12-LEAD Date/Time: 06/11/2024 1:30 PM Performed by: Ashli Yusuf ANP Authorized by: Ashli Yusuf ANP ??Previous ECG: no previous ECG available Rhythm: sinus rhythm BPM: 71 QRS axis: normal Conduction: conduction normal ST Segments: ST segments normal T Waves: T waves normal Other findings comments: no LVH. Clinical impression: normal ECG Comments: CT 168 ms , QTc 443 ms Procedure Note Ashli Yusuf ANP - 06/11/2024 1:23 PM CDT HISTORY OF PRESENT ILLNESS Krish Leyva, a 63 y.o. male presents with a Chief Complaint ofHypertension Just returned from vacation. Missed 4 days of his amlodipine 5 mg whilegone. Lower leg swelling side effect improved while off the medication.Also felt his face saw swelling. No home BP checks. Walking to stayactive. Has gained wt. Takes OTC Mg supplement for BP control, but outof this recently as well. He read about HCTZ or other diuretics and would like treatment with thattype drug. REVIEW OF SYSTEMS Review of Systems Respiratory: Negative for shortness of breath. Cardiovascular: Positive for leg swelling (ankles late in day.). Negativefor chest pain and palpitations. Musculoskeletal: Negative for neck pain. Neurological: Negative for headaches. Psychiatric/Behavioral: Negative for sleep disturbance (using CPAP). Objective PHYSICAL EXAM BP (!) 166/78 (BP Location: Left arm, Patient Position (BP): Sitting, BPCuff Size: Large Adult) Pulse 69 Temp 98.1 ??F (36.7 ??C) (Temporal) Resp 18 Ht 5' 8 (1.727 m) Wt 131.5 kg (290 lb) SpO2 97% BMI44.09 kg/m?? Physical Exam Vitals reviewed. HENT: Mouth/Throat: Mouth: Mucous membranes are moist. Pharynx: Oropharynx is clear. Eyes: Conjunctiva/sclera: Conjunctivae normal. Cardiovascular: Rate and Rhythm: Normal rate and regular rhythm. Heart sounds: Normal heart sounds. No murmur heard. Pulmonary: Effort: Pulmonary effort is normal. Breath sounds: Normal breath sounds. Musculoskeletal: Cervical back: Neck supple. Right lower leg: No edema. Left lower leg: No edema. Lymphadenopathy: Cervical: No cervical adenopathy. Neurological: General: No focal deficit present. Mental Status: He is alert. Psychiatric: Mood and Affect: Mood normal. EKG 12-LEAD Date/Time: 06/11/2024 1:30 PM Performed by: Ashli Yusuf ANP Authorized by: Ashli Yusuf ANP Previous ECG: no previous ECGavailable Rhythm: sinus rhythm BPM: 71 QRS axis: normal Conduction: conduction normal ST Segments: ST segments normal T Waves: T waves normal Other findings comments: no LVH. Clinical impression: normal ECG Comments: CT 168 ms , QTc 443 ms Assessment ASSESSMENT and PLAN: 1. Hypertension, uncontrolled Stop amlodipine. Change to ARB. Once daily. Discussed BP too elevated to respond fully to HCTZ. Discussed may needto add to current regimen in future. - EKG 12-LEAD - Irbesartan (AVAPRO) 75 mg tablet; Take 1 Tablet (75 mg) by mouth daily.Dispense: 30 Tablet; Refill: 3 - BASIC METABOLIC PANEL; Future-- ck in 3 weeks. 2. WALI (obstructive sleep apnea) Continue CPAP 3. Elevated fasting glucose With next labs. - HEMOGLOBIN A1C; Future FOLLOW UP Return in about 4 weeks (around 07/09/2024) for HTN. non fasting labs oneweek prior to appointment. . Appropriate medications prescribed and pt instructed in risks , benefitsand side effects. Appropriate patient instructions provided . See details in AVS Medications and options explained to include common side effects.Understanding of medications, course, diagnosis, and expectations wereexpressed by patient/guardian. Pt advised to call my office in one week if not contacted with any orderedtest results. AIMEE Almeida 06/11/2024 [facility] [employer] [place] [address] [address] Some of this encounter may have been transcribed using Quire computerized voice recognition without a human tube teller.This report may or may not have been adjusted for typographical or medicaland syntax errors. Ashli Pastor Paramjit ANP ECG ORDERABLES [facility] CLIA# [id number] [address] [address] from Last 3 Months Care Teams Senior Solutions Architect Relationship Specialty Start Date End Date Namoi Duenas MD [address] [place] [address] PCP - General Internal Medicine 06/11/24
--- OUTSIDE RECORDS SUMMARY | 2024-08-19 03:21 | XMS_ITS | Encounter Summary ---
Author Organization [facility] Address [address] [place] [address] Care Team Providers Care Bi Specialist Name Role Phone Cecilia Kaba MD Primary Care Provider [phone] Reason for Visit * Reason Comments Labs Only Encounter Details Date Type Department Care Team (Latest Contact Info) Description 01/29/2022 7:20 AM CDT Clinical Support [facility] [address] [place] [address] Encounter for screening, unspecified (Primary Dx) Social History Tobacco Use Types [...] Sign Reading Time Taken Comments Blood Pressure 146/96 01/29/2022 7:12 AM CDT Pulse - - Temperature - - Respiratory Rate - - Oxygen Saturation - - Inhaled Oxygen Concentration - - Weight 119.7 kg (264 lb) 01/29/2022 7:12 AM CDT Height 172.7 cm (5' 8 ) 01/29/2022 7:12 AM CDT Body Mass Index 40.14 01/29/2022 7:12 AM CDT documented in this encounter Progress Notes * Monica Cortés - 01/29/2022 7:21 AM CDT Pt came in for annual wellness screening finger stick, left hand 2nd digit, pt tolerate well. ILEANA Robledo Recommended a follow up to discuss BP, pt states he will check it at home and keep track. BP and glucose handouts given to pt. documented in this encounter Plan of Treatment Upcoming Encounters Date Type Department Care Team (Late st Contact Info) Description 10/08/2024 1:30 PM INVESTOR RELATIONS COORDINATOR Office Visit [facility] [place] [address] [facility] [place] [address] Ashli Yusuf, ANP [address] [place] [address] documented as of this encounter Procedures Procedure Name Priority Date/Time Associated Diagnosis Comments POC LIPID PANEL AND GLUCOSE Routine 01/29/2022 7:23 AM CDT documented in this encounter Results * (ABNORMAL) POC LIPID PANEL AND GLUCOSE (01/29/2022 7:23 AM CDT) CHOLESTEROL POC 0 200 mg/dL [facility] Comment:<100 HDL POC 40 40 - 59 mg/dL [facility] LDL CALCULATED POC 0 100 mg/dL [facility] Comment:NA TRIGLYCERIDES POC 0 150 mg/dL [facility] Comment:<50 NON-HDL CHOLESTEROL POC 0 130 mg/dL [facility] Comment:NA CHOL/HDL RATIO POC 0.0 [facility] Comment:NA GLUCOSE POC 106(A) 65 - 99 mg/dL [facility] Blood 01/29/2022 7:23 AM CDT Abstract Provider POINT OF CARE TESTIN G COM [facility] CLIA# [id number] [address] [employer] [address] documented in this encounter Visit Diagnoses Diagnosis Encounter for screening, unspecified- Primary documented in this encounter Care Teams Bi Specialist Relationship Specialty Start Date End Date Cecilia Kaba MD [address] [place] [address] PCP - General Family Practice 12/07/21 01/06/23 documented as of this encounter
--- OUTSIDE RECORDS SUMMARY | 2024-08-19 03:21 | XMS_ITS | Encounter Summary ---
Author Organization [facility] Address [address] [place] [address] Care Team Providers Care Business Services Manager Name Role Phone Anthony Mazariegos MD Primary Care Provider [phone] Encounter Details Date Type Department Care Team (Late st Contact Info) Description 04/10/2024 External Device Data STL ABSTRACTION Provider, Abstract [...] st Contact Info) Description 10/08/2024 1:30 PM TRAVELERS' AID WORKER Office Visit [facility] at Work [employer] [address] [place] [address] Ashli Yusuf, ANP [address] [place] [address] documented as of this encounter Visit Diagnoses Not on filedocumented in this encounter Care Teams Business Services Manager Relationship Specialty Start Date End Date Anthony Mazariegos MD [address] [facility] [address] [place] [address] PCP - General Internal Medicine 01/07/23 06/10/24 documented as of this encounter
--- OUTSIDE RECORDS SUMMARY | 2024-08-19 03:21 | XMS_ITS | Encounter Summary ---
Author Organization [facility] Address [address] [place] [address] Care Team Providers Care Plasterer Spot Name Role Phone Cecilia Kaba MD Primary Care Provider [phone] Reason for Visit * Reason Onset Date Comments Patient Communication 07/27/2022 CPAP suppl ies Encounter Details Date Type Department Care Team (Late st Contact Info) Description 07/27/2022 Telephone [facility] [employer] [place] [address] [place] [address] Jennifer Dubois FNP NO ADDRESS ON FILE Patient Communication (CPAP supplies ) Social History Tobacco Use Types Packs/Day Years [...] encounter Miscellaneous Notes * Telephone Encounter - Monica Cortés - 07/27/2022 11:30 AM CST Pt called and LM stating he has been trying to get a new CPAP since 06/2021 and wanted me to fax anorder to [facility]. Per the last message regarding the CPAP supplies to [facility] on 01/08/2022 pt is in need of an office visit with us before [facility] will fill the CPAP because they need an updated face to face OV with in 6 months. I have left a message for the pt to give the health center a call back. L CUT OFF SAW TENDER documented in this encounter Plan of Treatment Upcoming Encounters Date Type Department Care Team (Late st Contact Info) Description 10/08/2024 1:30 PM METAL CUT OFF SAW TENDER Office Visit [facility] [employer] [place] [place] [address] [facility] [place] [address] Ashli Yusuf, ANP [address] [facility] [address] [facility] [address] [place] [address] documented as of this encounter Visit Diagnoses Not on filedocumented in this encounter Care Teams Plasterer Spot Relationship Specialty Start Date End Date Cecilia Kaba MD [address] [place] [address] PCP - General Family Practice 12/07/21 01/06/23 documented as of this encounter
--- OUTSIDE RECORDS SUMMARY | 2024-08-19 03:21 | XMS_ITS | Encounter Summary ---
Author Organization [facility] Address [address] [place] [address] Care Team Providers Care Insole Department Worker Name Role Phone Anthony Mazariegos MD Primary Care Provider [phone] Encounter Details Date Type Department Care Team (Late st Contact Info) Description 11/11/2023 External Device Data STL ABSTRACTION Provider, Abstract [...] st Contact Info) Description 10/08/2024 1:30 PM ASSOCIATE PROFESSOR OF CRIMINAL JUSTICE Office Visit [facility] at Work [place] [address] [place] [address] Ashli Yusuf, ANP [address] [place] [address] documented as of this encounter Visit Diagnoses Not on filedocumented in this encounter Care Teams Insole Department Worker Relationship Specialty Start Date End Date Anthony Mazariegos MD [address] [facility] [address] [place] [address] PCP - General Internal Medicine 01/07/23 06/10/24 documented as of this encounter
--- OUTSIDE RECORDS SUMMARY | 2024-08-19 03:21 | XMS_ITS | Encounter Summary ---
Author Organization [facility] Address [address] [place] [address] Care Team Providers Care Senior Health Consultant Name Role Phone Anthony Mazariegos MD Primary Care Provider [phone] Encounter Details Date Type Department Care Team (Late st Contact Info) Description 04/24/2024 External Device Data STL ABSTRACTION Provider, Abstract [...] st Contact Info) Description 10/08/2024 1:30 PM LENS CLEANER Office Visit [facility] at Work [employer] [place] [address] [address] Ashli Yusuf, ANP [address] [place] [address] documented as of this encounter Visit Diagnoses Not on filedocumented in this encounter Care Teams Senior Health Consultant Relationship Specialty Start Date End Date Anthony Mazariegos MD [address] [facility] [address] [place] [address] PCP - General Internal Medicine 01/07/23 06/10/24 documented as of this encounter
--- OUTSIDE RECORDS SUMMARY | 2024-08-19 03:21 | XMS_ITS | Encounter Summary ---
Author Organization [facility] Address [address] [place] [address] Care Team Providers Care Apprentice Technician Name Role Phone Naomi Duenas MD Primary Care Provider [phone] Encounter Details Date Type Department Care Team (Late st Contact Info) Description 06/27/2024 External Device Data STL ABSTRACTION Provider, [...] st Contact Info) Description 10/08/2024 1:30 PM WASHCOAT WIPER Office Visit [facility] at Work [place] [address] [facility] [place] [address] Ashli Yusuf, ANP [address] [facility] [address] [place] [address] documented as of this encounter Visit Diagnoses Not on filedocumented in this encounter Care Teams Apprentice Technician Relationship Specialty Start Date End Date Naomi Duenas MD [address] [place] [address] PCP - General Internal Medicine 06/11/24 documented as of this encounter
--- OUTSIDE RECORDS SUMMARY | 2024-08-19 03:21 | XMS_ITS | Encounter Summary ---
Author Organization [facility] Address [address] [place] [address] Care Team Providers Care Medical Numerical Control Operator Name Role Phone Cecilia Kaba MD Primary Care Provider [phone] Reason for Visit * Reason Onset Date Comments Appointment Verification 01/28/2022 Encounter Details Date Type Department Care Team (Late Contact Info) Description 01/28/2022 Telephone [facility] [employer] [place] [address] [place] [address] Jaya Ramos MD NO ADDRESS ON FILE Appointment Verification Social History Tobacco Use Types Packs/Day Years [...] encounter Miscellaneous Notes * Telephone Encounter - Josie Tello - 01/28/2022 1:14 PM CDT LVM with a reminder for patients upcoming appointment on 01/29/22 at 7:20 am, at the [facility] wellness center. documented in this encounter Plan of Treatment Upcoming Encounters Date Type Department Care Team (Late Contact Info) Description 10/08/2024 1:30 PM BREAD STACKER Office Visit [facility] at Work [employer] [place] [address] [place] [address] Ashli Yusuf, ANP [address] [place] [address] documented as of this encounter Visit Diagnoses Not on filedocumented in this encounter Care Teams Medical Numerical Control Operator Relationship Specialty Start Date End Date Cecilia Kaba MD [address] [place] [address] PCP - General Family Practice 12/07/21 01/06/23 documented as of this encounter
--- OUTSIDE RECORDS SUMMARY | 2024-08-19 03:21 | XMS_ITS | Encounter Summary ---
Author Organization [facility] Address [address] [place] [address] Care Team Providers Care Senior Drupal Developer Name Role Phone Anthony Mazariegos MD Primary Care Provider Encounter Details Date Type Department Care Team (Late st Contact Info) Description 11/29/2023 External Device Data STL ABSTRACTION Provider, Abstract [...] st Contact Info) Description 10/08/2024 1:30 PM CARAMEL CUTTER MACHINE Office Visit [facility] at Work [employer] [place] [address] [place] [address] Ashli Yusuf, ANP [address] [place] [address] documented as of this encounter Visit Diagnoses Not on filedocumented in this encounter Care Teams Senior Drupal Developer Relationship Specialty Start Date End Date Anthony Mazariegos MD [address] [facility] [address] [place] [address] PCP - General Internal Medicine 01/07/23 06/10/24 documented as of this encounter
--- OUTSIDE RECORDS SUMMARY | 2024-08-19 03:21 | XMS_ITS | Encounter Summary ---
Author Organization [facility] Address [address] [place] [address] Care Team Providers Care Mexican Food Cook Name Role Phone Anthony Mazariegos MD Primary Care Provider [phone] Encounter Details Date Type Department Care Team (Late st Contact Info) Description 03/13/2024 External Device Data STL ABSTRACTION Provider, Abstract [...] st Contact Info) Description 10/08/2024 1:30 PM OCCUPATIONAL THERAPIST ASSISTANT Office Visit [facility] at Work [employer] [place] [address] [place] [address] Ashli Yusuf, ANP [address] [place] [address] documented as of this encounter Visit Diagnoses Not on filedocumented in this encounter Care Teams Mexican Food Cook Relationship Specialty Start Date End Date Anthony Mazariegos MD [address] [facility] [address] [place] [address] PCP - General Internal Medicine 01/07/23 06/10/24 documented as of this encounter
--- OUTSIDE RECORDS SUMMARY | 2024-08-19 03:21 | XMS_ITS | Encounter Summary ---
Author Organization [facility] Address [address] [place] [address] Care Team Providers Care Applications Tester Name Role Phone Anthony Mazariegos MD Primary Care Provider [phone] Encounter Details Date Type Department Care Team (Late st Contact Info) Description 09/28/2023 External Device Data STL ABSTRACTION Provider, Abstract [...] st Contact Info) Description 10/08/2024 1:30 PM PET CARE ASSOCIATE Office Visit [facility] at Work [employer] [place] [address] [address] Ashli Yusuf, ANP [address] [place] [address] documented as of this encounter Visit Diagnoses Not on filedocumented in this encounter Care Teams Applications Tester Relationship Specialty Start Date End Date Anthony Mazariegos MD [address] [facility] [address] [place] [address] PCP - General Internal Medicine 01/07/23 06/10/24 documented as of this encounter
--- OUTSIDE RECORDS SUMMARY | 2024-08-19 03:21 | XMS_ITS | Data Portability ---
Author Organization [facility], Main Office Address [address] [place] [address] Assessment No assessment recorded. Plan of Treatment Reminders Order Date Submit Date Provider Last Modified By Organization Details Last Modified Time Details Appointments None recorded. Lab TSH, serum or plasma [address] (Lab), [address] [place], [address], 3 08:46:15 glycohemog lobin, total, blood [address] (Lab), [address] [place], [address], 3 08:46:14 CMP, serum or plasma [address] (Lab), [address] [place], [address], 3 08:46:14 PSA, serum or plasma [address] (Lab), [address] [place], [address], 3 08:46:14 Referral sleep medicine referral 2022 023 carine Ag MD, [address] [place], [address], 3 19:27:08 Procedures None recorded. Surgeries None recorded. Imaging polysomnog arturo, split night - No auth Required Per Alexandria Camarena @ 11:57 2022 023 [facility] n37 [facility] ([facility]), [address] [facility], [place], [address], 08:10:54 Medication Orders None recorded. Patient TargetsNo targets recorded. Patient InstructionsNo instructions recorded. Reason for Referral Sleep Medicine Referral for Sleep apnea Referring Physician: Anthony Mazariegos, Internal Medicine, Encounter Date: 11/15/2022 Results Created Date Observation Date Name Description Value Unit Range Abnormal Flag Note LastModifiedBy Organization Detail LastModifiedTime 01/14/2001/12/2021 audio gram + tympa nogra m No observ ation record ed. [id number] [facility] [address] [place] [address], [address], 10/27/2022 12:49:43 11/19/19 23 11/17/2022 XR, hand No observ ation record ed. [address], [place], [address], 11/18/2022 13:04:00 04/14/20 23 04/01/2023 polys omnog arturo, split night No observ ation record ed. [place] [id number] [facility] [address], [place], [address], 05/23/2023 15:13:20 Result Notes None recorded. Problems Name Problem SNOMED Code Status Onset Date Resolution Date Notes Provider Name and Address Organization Details Recorded Time Impacted cerumen in left ear 036465790194 9101 Completed 202211/15/2022 ILEANA Shanks [facility] 3 14:58:28 Hearing loss 26409352 Active 2016 ILEANA Shanks [place] [employer] 3 14:57:55 Impacted cerumen 27861416 Completed 201611/15/2022 Umm Stufflebe an, RMA null, [place] [facility] 3 14:58:25 Osteoarth ritis of knee 013966590 Active Umm Stufflebe an, RMA null, [place] [facility] 3 14:58:42 Knee pain Completed 11/15/2022 Umm Stufflebe an, RMA null, [place] [facility] 3 14:58:37 Obesity 816808071 Active 2016 Umm Stufflebe an, RMA null, [place] [facility] 3 14:58:39 Sleep apnea 97280261 Active Umm Stufflebe an, RMA null, [place] [facility] 3 14:58:44 Hearing loss 97798697 Active 2022 Umm Stufflebe an, RMA null, [place] [facility] 3 15:22:15 Hyperglyc emia 58330219 Active 2022 Umm Stufflebe an, RMA null, [place] [facility] 3 15:22:17 Bilateral tinnitus 308729544556 2 Active 2022 Anthony Mazariegos MD [address] [place] [address], [address] [facility] [place] [facility] 3 15:27:33 Problem Notes None recorded. Procedures Surgical History Date Name Laterality Status Provider Name and Address Organization Details Recorded Time manipulation of displaced nasal septum completed Umm Aguayo RMA [place] [facility] 11/15/2022 14:52:11 Cyst Removal completed Umm Aguayo RMA [place] [facility] 11/15/2022 14:52:24 Imaging Results Imaging Date Name Status LastModified by Organiz ation Details LastModified Time 01/12/2021 audiogram + tympanogram completed [id number] [facility] [place], [address], 10/27/2022 12:49:43 11/17/2022 XR, hand completed [address] [facility] [address], [place], [address], 11/18/2022 13:04:00 04/01/2023 polysomnogram, split night completed [address] [facility] [address], [place], [address], 05/23/2023 15:13:20 Procedure Notes None recorded. Medical Equipment None Reported. Allergies No known drug allergies Medications Name Sig Start Date Stop Date Status Note LastModified by Organization Details LastModified Time azithromycin 250 mg tablet 10/14 completed Not Available Not Available Not Available ibuprofen 800 mg tablet TAKE 1 TABLET BY MOUTH EVERY 6 HOURS NEEDED 10/14 completed Not Available Not Available Not Available tramadol 50 mg tablet TAKE 1-2 TABLETS BY MOUTH EVERY 6 HOURS NEEDED FOR PAIN 10/14 completed Not Available Not Available Not Available oxycodone-ac etaminophen 5 mg-325 mg tablet TAKE 1 TABLET BY MOUTH EVERY 6 HOURS NEEDED FOR PAIN 01/03 completed Not Available Not Available Not Available amoxicillin 875 mg tablet TAKE 1 TABLET BY MOUTH TWICE DAILY UNTIL GONE 10/14 completed Not Available Not Available Not Available cephalexin 500 mg capsule TAKE 1 CAPSULE BY MOUTH EVERY 12 HOURS FOR 7 DAYS 01/03 completed Not Available Not Available Not Available mupirocin 2 % topical ointment 08/17 completed Not Available Not Available Not Available Suprep Bowel Prep Kit 17.5 gram-3.13 gram-1.6 gram oral solution active Not Available Not Available Not Available Vitals Date Recorded Body mass index (BMI) Body height Body temperature Body weight Provider Name and Address Organization Details Last Updated DateTime 12/12/2020 38 kg/m2 172.72 cm 96.8 [degF] 316933.0 9 g Not Available [facility] 10/27/2022 12:46:03 Date Recorded Body mass index (BMI) Body height Body temperature Body weight Provider Name and Address Organization Details Last Updated DateTime 10/14/2022 41.7 kg/m2 172.72 cm 97.9 [degF] 900239.3 1 g Not Available [facility] 10/27/2022 12:46:03 Date Recorded Body height Body mass index (BMI) Body weight Body temperature Heart rate Oxygen saturation Oxygen saturation in Arterial blood by Pulse oximetry Systolic blood pressure Diastolic blood pressure Provider Name and Address Organization Details Last Updated DateTime 3 172.72 cm 42.3 kg/m2 721118. 68 g 98.2 [degF] 80 /min 97 % 97 % 144 mm[Hg] 80 mm[Hg] Umm otto [facility] [employer] [place] 3 14:57:40 Date Recorded Body height Body mass index (BMI) Body weight Body temperature Heart rate Oxygen saturation Oxygen saturation in Arterial blood by Pulse oximetry Systolic blood pressure Diastolic blood pressure Provider Name and Address Organization Details Last Updated DateTime 3 172.72 cm 42.3 kg/m2 304041. 68 g 97.8 [degF] 70 /min 97 % 97 % 130 mm[Hg] 74 mm[Hg] Umm otto [facility] [employer] [place] 3 15:21:40 Date Recorded Body height Body mass index (BMI) Body weight Body temperature Heart rate Oxygen saturation Oxygen saturation in Arterial blood by Pulse oximetry Systolic blood pressure Diastolic blood pressure Provider Name and Address Organization Details Last Updated DateTime 3 172.72 cm 41.4 kg/m2 430190. 12 g 96.9 [degF] 88 /min 97 % 97 % 140 mm[Hg] 80 mm[Hg] Umm otto Maryann [employer] [place] 3 15:09:25 Social History Question Answer Notes LastModified by Organization Details LastModified Time Tobacco Smoking Status Former Smoker Not Available [facility] 10/27/2022 12:45:17 Do You Have An Advance Directive? No Information not available 11/15/2022 What Is Your Level Of Alcohol Consumption? Moderate On The Weekends Information not available 11/15/2022 What Is Your Level Of Caffeine Consumption? Moderate Information not available 11/15/2022 In The 14 Days Before Symptom Onset, Have You Had Close Contact With A Laboratory-conf mandakristen ALAN-19 While That Case Was Ill? No [id number] Information not available 10/27/2022 In The 14 Days Before Symptom Onset, Have You Had Close Contact With A Person Who Is Under Investigation For COVID-19 While That Person Was Ill? No [id number] Information not available 10/27/2022 Are You Currently Employed? Yes Information not available 11/15/2022 What Type Of Diet Are You Following? REGULAR Information not available 11/15/2022 What Is The Highest Grade Or Level Of School You Have Completed Or The Highest Degree You Have Received? 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 No Information not available 11/15/2022 When Did You Quit Smoking? 16+yearssincelastc igarette 03/02/1998 Information not available 11/15/2022 Do You Use Insect Repellent Routinely? No Information not available 11/15/2022 Where Do You Live? SingleLevelHouse Information not available 11/15/2022 What Was The Date Of Your Most Recent Tobacco Screening? 11/15/2022 Information not available 11/15/2022 Have You Ever Been Counseled For Unhealthy Alcohol Use? No Information not available 11/15/2022 Do You Have Any Pets? Yes Information not available 11/15/2022 What Is Your Relationship Status? Information not available 11/15/2022 Do You Have Smoke And Carbon Monoxide Detectors In Your Home? Yes Information not available 11/15/2022 At What Age Did You Start Smoking Tobacco? 13 Information not available 11/15/2022 Are You Passively Exposed To Smoke? No Information not available 11/15/2022 Are There Any Smokers In Your House? No Information not available 11/15/2022 Do You Feel Stressed (tense, Restless, Nervous, Or Anxious, Or Unable To Sleep At Night)? [id number] Information not available 11/15/2022 Do You Use Any Illicit Or Recreational Drugs? No Information not available 11/15/2022 Do You Use Sunscreen Routinely? Yes Information not available 11/15/2022 Have You Recently Traveled Abroad? No Information not available 11/15/2022 Do You Have Any Dietary Restrictions? No Information not available 11/15/2022 Sex: Male Functional Status Question Answer Note LastModified by Organization D etails LastModified Time What is your exercise level? Moderate Information not available 11/15/2022 Mental Status None recorded. Family History Relationship Description Onset Age of this Age Resolved Age Notes LastModified by Organization Details LastModified Time Father Heart disease CHF Not available 14:47:10 Father Essential hypertension Not available 11/15/2022 14:47:29 Mother Essential hypertension Not available 11/15/2022 14:47:29 Paternal Aunt Diabetes mellitus Not available 14:47:42 Brother Family history of malignant neoplasm Not available 14:48:01 Brother Family history of malignant neoplasm Not available 14:48:01 Sister Family history of malignant neoplasm Not available 14:48:01 Medical History Condition Response MRSA N SLEEP APNEA N ALLERGIES/HAYFEVER N OTHER # 1 N LUNG DISEASE/DISORDER N HISTORY OF DRUG ABUSE N INSOMNIA N COPD N RADIATION / CHEMOTHERAPY N HIGH CHOLESTEROL / HYPERLIPIDEMIA N HYPERTHYROIDISM N Other # 2 N BLOOD DISEASES N NEUROLOGICAL PROBLEMS N SURGERY N EAR OR HEARING PROBLEMS N HYPOTHYROIDISM N SHINGLES N DEPRESSION (INCLUDING POST ) N HAVE YOU BEEN HOSPITALIZED OR SEEN IN [facility] IN THE PAST YEAR ? N STROKE/TIA N ULCERS N OBESITY N ANEURYSM N HISTORY WITH COMPLICATIONS WITH ANESTHES IA ? N USE OF BLOOD THINNERS N NO SIGNIFICANT PAST MEDICAL HISTORY N DIABETES, TYPE N PARATHYROID DISEASE N ENT N SEASONAL ALLERGIES N HEARTBURN / REFLUX N HEPATITIS / LIVER DISEASE N SLEEP DISORDER N SEIZURES/EPILEPSY N HEADACHES/MIGRAINES N CHF N PACEMAKER N DIZZINESS N HEART DISEASE/HEART PROBLEMS N AIDS/HIV N FRACTURES N HYPERTENSION N CANCER: SPECIFY N TOURETTE'S N BLOOD TRANSFUSION N ANEMIA/BLOOD DISORDER N ANESTHESIA COMPLICATIONS N CHRONIC EAR INFECTIONS N AUTOIMMUNE DISEASE N TUBERCULOSIS N Immunizations Vaccine Type Date Status Note Provider Nam e and Address Organization Details Recorded Time tetanus toxoid, adsorbed 04/25/2015 completed Not Available [facility] 12:49:36 Past Encounters Encounter ID Performer Location Encounter Start Date Encounter Closed Date Diagnosis/Indication Diagnosis SNOMED-CT Code Diagnosis ICD10 Code [id number] _ATHENA_M IGRATION_ DEFAULT_1 _1 , 12/12/2020 00:00:00 12/12/2020 10:34:15 [id number] [facility] [place] [address] [place] [address] 10/14/2022 00:00:00 10/14/2022 14:22:39 [id number] Anthony Mazariegos MD [facility] Internal Med [address] [address] 11/15/2022 14:42:41 11/15/2022 15:26:19 Obesity 351530876 E66.9 Sleep apnea 95412449 G47 .30 Adult [facility] examination 501205399 Z00.00 Hearing loss 54885676 H9 1.93 Hyperglycemia 34223707 R 73.9 [id number] [facility] Internal Med [address] [address] 01/03/2023 15:07:05 01/03/2023 15:51:54 Sleep apnea 39307681 G47.30 [id number] Anthony Mazariegos MD [facility] Internal Med [address] [address] 05/23/2023 14:58:01 05/23/2023 15:32:37 Obesity 017217355 E66.9 Sleep apnea 18620899 G47 .30 Hearing loss 09448289 H9 1.93 Adult heal th examination 194357091 Z00.00 Hyperglycemia 38797781 R 73.9 Screening for malignant neoplasm of prostate 123288653 Z12.5 Bilateral tinnitus 80305 91458 102 H93.13 Health Concerns Section Related Observation LastModified by Organization Detai ls LastModified Time None Recorded Concern Status LastModified by Organization Details LastModified Time None Recorded Advance Directives Directive N: Payers Encounter Date Sequence Insurance Name Policy Number Policy Verdin Covered Member ID Verdin Member ID Guarantor Name 11/15/2022 1 [employer] (PPO) [id number] Krish Leyva [id number] Krish Leyva 01/03/2023 1 [employer] (PPO) [id number] Krish Leyva [id number] Krish Kiran Gordon 05/23/2023 1 [employer] (PPO) [id number] Krish Kiran Gordon [id number] Krish Leyva Notes Date Note Type Note Provider Name and Address Organization Details Recorded Time 11/15/2022 text/html Pt is a 62 y/o m jasmin here today to establish careCurrently not taking any prescribed medications but does take some OTC blood pressure supplementsToday his b/p is 144/80 Sleep apnea- Uses CPAP- needs a new machine. His is 15yrs oldLast sleep study was 17yrs ago, feels fatigue if does not use it Hearing loss/Tinnitus - has seen dormitory maid, had hearing testing and using hearing aids Obesity- advised to loose wt, has gained some weight Osteoarthritis- mostly knees, more right, otc helps Hyperglycemia- labs done at work recently, A1c was nl, watching diet Anthony Mazariegos MD [address], [place], [address], [employer] 11/15/2022 15:24:18 01/03/2023 text/html He is here today for a referral for a sleep study.He currently uses a cpap but it is 17yrs old and they are requesting him get another sleep study.Provider is LincareHe stops breathing and feels tired if does not use it, snores a lot without machineweight is unchanged Anthony Mazariegos MD [address], [place], [address], [employer] 01/03/2023 15:51:20 05/23/2023 text/html Pt is here today for a 6 month follow upNeeds a letter for the VA for partial disability for his hearing loss, tinnitus and vertigo. 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 Sleep apnea- Uses CPAP- needs a new machine.Last sleep study recently, feels fatigue if does not use it Hearing loss/Tinnitus - has seen dormitory maid, had hearing testing and using hearing aids. Also has vertigo, applying for disability due to previous Obesity- lost 6 lbs Osteoarthritis- mostly knees, more right, otc helps Hyperglycemia- labs done at work recently, A1c was nl, watching diet Anthony Mazariegos MD [address], [place], [address], [place] [facility] [employer] [facility] [employer] 05/23/2023 15:33:08
--- OUTSIDE RECORDS SUMMARY | 2024-08-19 03:21 | XMS_ITS | Encounter Summary ---
Author Organization [employer] (Member[employer])[facility] Address [address] [place] [address] Care Team Providers Care Office Clerk Name Role Phone Naomi Duenas MD Primary Care Provider [phone] Reason for Referral * Radiology Services (Routine) - Open Specialty Diagnoses / Procedures Referred By Contac t Referred To Contact Diagnoses Benign hypertension History of cigarette smoking Procedures US AAA SCREEN Ashli Yusuf ANP [address] [address] [facility] [address] [place] [address] Referral ID Status Reason Start Date Expiration Date Visits Re quested Visits Authorized [id number] Open 07/09/2024 08/09/2025 1 1 CARRIER Reason for Visit * Reason Comments Hypertension Needs refill Encounter Details Date Type Department Care Team (Late st Contact Info) Description 07/09/2024 1:30 PM KEY CARRIER Office Visit [facility] at Work [place] [address] [place] [id number] Ashli Yusuf ANP [address] [address] [place] [address] Benign hypertension (Primary Dx); Pre-diabetes; History of cigarette smoking; Hypertension, uncontrolled; Needs flu shot; Need for pneumococcal vaccination Social History Tobacco Use Types Packs/Day Years [...] Comments Blood Pressure 136/74 07/09/2024 1:40 PM KEY CARRIER Pulse 80 07/09/2024 1:18 PM KEY CARRIER Temperature 36.7 ??C (98.1 ??F) 07/09/2024 1:18 PM CS T Respiratory Rate 17 07/09/2024 1:18 PM KEY CARRIER Oxygen Saturation 96% 07/09/2024 1:18 PM KEY CARRIER Inhaled Oxygen Concentration - - Weight 130.2 kg (287 lb) 07/09/2024 1:18 PM KEY CARRIER Height 172.7 cm (5' 8 ) 07/09/2024 1:18 PM KEY CARRIER Body Mass Index 43.64 07/09/2024 1:18 PM KEY CARRIER documented in this encounter Progress Notes * Ashli Yusuf, ANP - 07/09/2024 1:41 PM CST HISTORY OF PRESENT ILLNESS Krish Leyva, a 63 y.o. male presents with a Chief Complaint of Hypertension (Needs refill) Tolerating change to irbesartan from amlodipine after noted LE edema. Edema has resolved. No BP home checks. Labs this week with prediabetes. Renal function good. He walks on his breaks at work and does some push ups. He has lost 4 lbs. Looking forward to time off planned in Jul taking off built up PTO. Limited travel but doing jobs at home. REVIEW OF SYSTEMS Review of Systems Constitutional: Negative for appetite change and unexpected weight change. Respiratory: Negative for shortness of breath. Cardiovascular: Negative for chest pain and palpitations. Gastrointestinal: Negative. Genitourinary: Sometimes slow urine flow. Not up at night. Musculoskeletal: Negative for neck pain. Neurological: Negative for headaches. Objective PHYSICAL EXAM BP 136/74 Pulse 80 Temp 98.1 ??F (36.7 ??C) (Tympanic) Resp 17 Ht 5' 8 (1.727 m) Wt 130.2 kg (287 lb) SpO2 96% BMI 43.64 kg/m?? Physical Exam Vitals reviewed. Constitutional: Appearance: He is well-developed. HENT: Head: Normocephalic. Right Ear: Hearing normal. Left Ear: Hearing normal. Mouth/Throat: Mouth: Mucous membranes are moist. Pharynx: Oropharynx is clear. Eyes: General: Lids are normal. No scleral icterus. Conjunctiva/sclera: Conjunctivae normal. Neck: Thyroid: No thyromegaly. Cardiovascular: Rate and Rhythm: Normal rate and regular rhythm. Pulses: Normal pulses. Carotid pulses are 2+ on the right side and 2+ on the left side. Heart sounds: Normal heart sounds. No murmur heard. Pulmonary: Effort: Pulmonary effort is normal. Breath sounds: Normal breath sounds. Musculoskeletal: Cervical back: Neck supple. Right lower leg: No edema. Left lower leg: No edema. Lymphadenopathy: Cervical: No cervical adenopathy. Skin: General: Skin is warm. Neurological: General: No focal deficit present. Mental Status: He is alert. Psychiatric: Mood and Affect: Mood normal. Speech: Speech normal. Behavior: Behavior normal. Procedures Assessment ASSESSMENT and PLAN: 1. Benign hypertension Improved but at upper limit normal. Continue same dose. Continue exercise. Check weekly at home BP while has time off. Call if < 138/88. - US AAA SCREEN; Future - Irbesartan (AVAPRO) 75 mg tablet; Take 1 Tablet (75 mg) by mouth daily. Dispense: 90 Tablet; Refill: 0 2. Pre-diabetes Praised healthy changes efforts. 3. History of cigarette smoking - US AAA SCREEN; Future 4. Hypertension, uncontrolled - Irbesartan (AVAPRO) 75 mg tablet; Take 1 Tablet (75 mg) by mouth daily. Dispense: 90 Tablet; Refill: 0 5. Needs flu shot - INFLUENZA VACCINE TRIVALENT SPLIT VIRUS, (6 MOS UP), 0.5ML (PF), IM 6. Need for pneumococcal vaccination - pneumococcal conjugate vaccine PF, PCV20, (PREVNAR 20) 0.5 mL Syringe; Inject 0.5 mL by intramuscular injection one time only for 1 dose. Dispense: 0.5 mL; Refill: 0 FOLLOW UP Return in about 3 months (around 10/09/2024) for HTN, urine flow. . AAA results. Appropriate medications prescribed and pt instructed in risks , benefits and side effects. Appropriate patient instructions provided . See details in AVS Medications and options explained to include common side effects. Understanding of medications, course, diagnosis, and expectations were expressed by patient/guardian. Pt advised to call my office in one week if not contacted with any ordered test results. AIMEE Almeida 07/09/2024 [facility] [place] [address] [address] Some of this encounter may have been transcribed using [email or web address] Speaking computerized voicerecognition without a human commercial internship. This report may or may not have been adjusted for typographical or medical and syntax errors. Answers submitted by the patient for this visit: High Blood Pressure Questionnaire (Submitted on 07/03/2024) Chief Complaint: Hypertension anxiety: No blurred vision: No malaise/fatigue: No orthopnea: No peripheral edema: No PND: No sweats: No Compliance problems: medication side effects CARRIER documented in this encounter Miscellaneous Notes * Patient Instructions - Ashli Yusuf ANP - 07/09/2024 1:50 PM KEY CARRIER Get ultrasound of your abdomen to check for Abdominal Aortic Aneurysm. This is done one time in a man your age and who has smoked. You can call location of choice to schedule Continue current BP medication. Check blood pressure once weekly at home during month of July . Should be readings under 138/88. See us again in 3 months. CARRIER documented in this encounter Plan of Treatment Upcoming Encounters Date Type Department Care Team (Late st Contact Info) Description 10/08/2024 1:30 PM KEY CARRIER Office Visit [place] [address] [facility] [place] [address] Ashli Yusuf ANP [address] [address] [facility] [address] [place] [address] Scheduled Orders Name Type Priority Associated Diagnoses Orde r Schedule US AAA SCREEN Imaging Routine Benign hypertension History of cigarette smoking 1 Occurrences starting 07/09/2024 until 07/09/2025 documented as of this encounter Visit Diagnoses Diagnosis Benign hypertension- Primary Essential hypertension, benign Pre-diabetes Other abnormal glucose History of cigarette smoking Hypertension, uncontrolled Unspecified essential hypertension Needs flu shot Need for prophylactic vaccination and inoculation against influenza Need for pneumococcal vaccination Need for prophylactic vaccination against streptococcus pneumoniae (pneumococcus) documented in this encounter Care Teams Office Clerk Relationship Specialty Start Date End Date Naomi Duenas MD [address] [place] [address] PCP - General Internal Medicine 06/11/24 documented as of this encounter
--- OUTSIDE RECORDS SUMMARY | 2024-08-19 03:21 | XMS_ITS | Encounter Summary ---
Author Organization [facility] Address [address] [place] [address] Care Team Providers Care Dialysis Registered Nurse Name Role Phone Anthony Mazariegos MD Primary Care Provider [phone] Reason for Visit * Reason Comments Labs Only Encounter Details Date Type Department Care Team ([facility] st Contact Info) Description 12/23/2023 7:40 AM CDT Office Visit [facility] [place] [address] [address] Screening for condition (Primary Dx); Screening for prostate cancer Social [...] Sign Reading Time Taken Comments Blood Pressure 130/82 12/23/2023 7:38 AM CDT Pulse - - Temperature - - Respiratory Rate - - Oxygen Saturation - - Inhaled Oxygen Concentration - - Weight 128.8 kg (284 lb) 12/23/2023 7:38 AM CDT Height 172.7 cm (5' 8 ) 12/23/2023 7:38 AM CDT Body Mass Index 43.18 12/23/2023 7:38 AM CDT documented in this encounter Progress Notes * Sapna Morel - 12/23/2023 7:39 AM CDT Patient presents for labs only, drawn from left ac, one stick. Patient tolerated well. documented in this encounter Plan of Treatment Upcoming Encounters Date Type Department Care Team (Late st Contact Info) Description 10/08/2024 1:30 PM SERVICE AIDE Office Visit [facility] [place] [address] [place] [address] Ashli Yusuf, ANP [address] [place] [address] documented as of this encounter Procedures Procedure Name Priority Date/Time Associated Diagnosis Comments CBC WITH DIFFERENTIAL Routine 12/23/2023 7:23 AM CDT Screening for condition PSA,TOTAL AND FREE Routine 12/23/2023 7: 23 AM CDT Screening for prostate cancer TSH Routine 12/23/2023 7:23 AM CDT Screening for condition LIPID PANEL Routine 12/23/2023 7:23 AM CDT Screening for condition COMPREHENSIVE METABOLIC PANEL Routine 12/23/2023 7:23 AM CDT Screening for condition documented in this encounter Results * (ABNORMAL) PSA,TOTAL AND [...] ? 8 >10(+) ? N/A ?>50 References:(1)Angelo love al.:Urology 60: 469-474 (2002) ? (2)Angelo love al.:J.Urol 168: 922-925 (2002) ?Free PSA(%) ?? Sensitivity(%) ??Specificity(%) ?< or = 25 ?85 ?19 ?< or = 30 ?93 ? 9 ? (3)Angelo et al.:RITA 277: 0737-9483 (1996) ? (4)Angelo et al.:RITA 279: 3299-7663 (1997) (x)These estimates vary with age, ethnicity, [...] or absence of disease. Test Performed at: [address] ??[phone] Ajay Das Blood 12/23/2023 7:23 AM CDT 12/24/2023 1:21 AM CDT Sarah Weiss DNP CHEMISTRY ORDERABLES [facility] [phone] [place] [id number] [place] [address] * TSH (12/23/2023 7:23 AM CDT) TSH 2.08 0.40 - 4.50 mIU/L [facility] Comment: Test Performed at: [facility] [address] [place] ??[address] Kristi Manzano Blood 12/23/2023 7:23 AM CDT 12/24/2023 1:22 AM CDT Carla Prado ANP CHEMISTRY OR DERABLES [facility] [phone] [place] [id number] [place] [address] * LIPID PANEL (12/23/2023 7:23 AM CDT) CHOLESTEROL 150 <200 mg/dL [facility] NGRAIN meghan Bryant HDL 47 > OR = 40 mg/dL Distil NetworksDora Bryant TRIGLYCERIDE 61 <150 mg/dL [facility] NGRAINRUST Manny LDL CALCULATED 88 mg/dL (calc) [facility] NGRAINDora Bryant Comment: Reference range: <100 Desirable range <100 mg/dL for primary prevention; ?? <70 mg/dL for patients with CHD or diabetic patients with > or = 2 CHD risk factors. LDL-C is now calculated using the Jeremy calculation, which is a validated novel method providing better accuracy than the Friedewald equation in the estimation of LDL-C. Abhi QUIROZ et al. RITA. 2013;310(19): 2363-5994 (http://education.[employer]/faq/RRK360) CHOL/HDL RATIO 3.2 <5.0 (calc) Brent Bryant TOTAL NON-HDL CHOL(LDL+VLDL) 103 <130 mg/dL (calc) [facility] NetworksChinyere Bryant Comment: For patients with diabetes plus 1 major ASCVD risk factor, treating to a non-HDL-C goal of <100 mg/dL (LDL-C of <70 mg/dL) is considered a therapeutic option. Test Performed at: [facility] [address] [place] ??[address] RebekaNikita Holbrook Blood 12/23/2023 7:23 AM CDT 12/24/2023 1:22 AM CDT Carla YU CHEMISTRY OR DERABLES [facility] [phone] [place] [address] [place] [address] * (ABNORMAL) COMPREHENSIVE METABOLIC PANEL (12/23/2023 7:23 AM CDT) GLUCOSE 106(H) 65 - 99 mg/dL FlimperDora Bryant Comment: ? Fasting reference interval For someone without known diabetes, a glucose value between 100 and 125 mg/dL is consistent with prediabetes and should be confirmed with a follow-up test. BUN 18 7 - 25 mg/dL [employer] meghan Manny CREATININE 0.90 0.70 - 1.35 mg/dL [facility] meghan Bryant GFR 95 > OR = 60 mL/min/1. 73m2 FlimperDora christianson Manny BUN/CREAT RATIO SEE NOTE: (calc) [facility] meghan Manny Comment: ?? Not Reported: BUN and Creatinine are within ?? reference range. ? SODIUM 139 135 - 146 mmol/L FlimperDora Bryant POTASSIUM 4.6 3.5 - 5.3 mmol/L [facility] meghan Manny CHLORIDE 103 98 - 110 mmol/L [facility] meghan Manny CO2 23 20 - 32 mmol/L [facility] meghan Bryant CALCIUM 9.5 8.6 - 10.3 mg/dL [facility] meghan rByant TOTAL PROTEIN 6.9 6.1 - 8.1 g/dL [employer] [facility] meghan Manny ALBUMIN 4.6 3.6 - 5.1 g/dL [employer] [facility] meghan Manny GLOBULIN 2.3 1.9 - 3.7 g/dL (calc) [facility] meghan Manny ALBUMIN/GLOBULIN RATIO 2.0 1.0 - 2.5 (calc) [facility] meghan Bryant BILIRUBIN TOTAL 0.8 0.2 - 1.2 mg/dL [facility] meghan Bryant ALKALINE PHOSPHATASE 48 35 - 144 U/L [facility] meghan Manny AST 23 10 - 35 U/L [facility] meghan Manny ALT 31 9 - 46 U/L [facility] meghan Manny Comment: Test Performed at: [facility] [address] [place] ??[phone] Rebeka-Lindsay Holbrook Jose Juan Blood 12/23/2023 7:23 AM CDT 12/24/2023 1:22 AM CDT Carla Prado ANP CHEMISTRY OR DERABLES [facility] [phone] [place] NetworksKaitlyn [place] [address] [place] [address] * CBC WITH DIFFERENTIAL (12/23/2023 7:23 AM CDT) WBC 6.4 3.8 - 10.8 Thousand/u L [facility] RBC 4.94 4.20 - 5.80 Million/uL [facility] HEMOGLOBIN 16.1 13.2 - 17.1 g/dL [facility] HEMATOCRIT 48.0 38.5 - 50.0 % [facility] MCV 97.2 80.0 - 100.0 fL [facility] MCH 32.6 27.0 - 33.0 pg [facility] MCHC 33.5 32.0 - 36.0 g/dL [facility] RDW 12.9 11.0 - 15.0 % [facility] PLATELETS 191 140 - 400 Thousand/u L [facility] MPV 10.9 7.5 - 12.5 fL [facility] NEUTROPHIL ABSOLUTE 4,442 1,500 - 7,800 cells/uL [facility] LYMPHOCYTE ABSOLUTE 1,274 850 - 3,900 cells/uL [facility] MONOCYTE ABSOLUTE 518 200 - 950 cells/uL [facility] EOSINOPHIL ABSOLUTE 128 15 - 500 cells/uL [facility] BASOPHILS ABSOLUTE 38 0 - 200 cells/uL [facility] NEUTROPHIL 69.4 % [facility] LYMPHOCYTES 19.9 % [facility] MONOCYTE 8.1 % [facility] EOSINOPHILS 2.0 % [facility] BASOPHILS 0.6 % [facility] Comment: Test Performed at: [facility] [address] [place] ??[address] Kristi Manzano Blood 12/23/2023 7:23 AM CDT 12/24/2023 1:22 AM CDT Carla Tiane Eve ANP HEMATOLOGY O RDERABLES [facility] [phone] [place] NetworksKaitlyn [place] [address] [place] [address] documented in this encounter Visit Diagnoses Diagnosis Screening for condition- Primary Screening for unspecified condition Screening for prostate cancer Special screening for malignant neoplasm of prostate documented in this encounter Care Teams Dialysis Registered Nurse Relationship Specialty Start Date End Date Anthony Mazariegos MD [address] [phone] PCP - General Internal Medicine 01/07/23 06/10/24 documented as of this encounter
--- OUTSIDE RECORDS SUMMARY | 2024-08-19 03:21 | XMS_ITS | Encounter Summary ---
Author Organization [facility] Address [address] [place] [address] Care Team Providers Care Business Communications Instructor Name Role Phone Anthony Mazariegos MD Primary Care Provider [phone] Reason for Visit * Reason Onset Date Comments Other 10/17/2023 Encounter Details Date Type Department Care Team (Late st Contact Info) Description 10/17/2023 Telephone [facility] [place] [address] [place] [address] Cecilia Kaba MD [address] [place] [phone] Other Social History Tobacco Use Types Packs/Day Years [...] encounter Miscellaneous Notes * Telephone Encounter - Heather Pace - 10/17/2023 1:39 PM CST Order attached. VING MACHINE OPERATOR * Telephone Encounter - Cecilia Kaba MD - 10/17/2023 11:45 AM CST Can you attach this to his MRA order? Please let patient know that MRA was normal. VING MACHINE OPERATOR documented in this encounter Plan of Treatment Upcoming Encounters Date Type Department Care Team (Late st Contact Info) Description 10/08/2024 1:30 PM GROOVING MACHINE OPERATOR Office Visit [facility] at Work [place] [address] [facility] [place] [address] Ashli Yusuf, ANP [address] [facility] [address] [place] [address] documented as of this encounter Visit Diagnoses Not on filedocumented in this encounter Care Teams Business Communications Instructor Relationship Specialty Start Date End Date Anthony Mazariegos MD [address] [facility] [address] [place] [address] PCP - General Internal Medicine 01/07/23 06/10/24 documented as of this encounter
--- OUTSIDE RECORDS SUMMARY | 2024-08-19 03:21 | XMS_ITS | Encounter Summary ---
Author Organization [facility] Address [address] [place] [address] Care Team Providers Care Rubber Compounder Supervisor Name Role Phone Naomi Duenas MD Primary Care Provider [phone] Reason for Visit * Reason Comments Labs Only Encounter Details Date Type Department Care Team (Latest Contact Info) Description 07/02/2024 1:20 PM WAREHOUSE HELPER Clinical Support [facility] [place] [address] [employer] [place] [address] Elevated fasting glucose; Hypertension, uncontrolled Social History Tobacco Use Types Packs/Day Years [...] on file documented as of this encounter Progress Notes * Valencia Webster - 07/02/2024 1:45 PM CST Pt presents for lab draw. Left AC successful 1 stick. Pt tolerated well. HOUSE HELPER documented in this encounter Miscellaneous Notes * Result Encounter Note - Ashli Yusuf ANP - 07/03/2024 11:36 AM WAREHOUSE HELPER Contact patient regarding result. Blood sugar in prediabetic range. Important to lose weight to avoid diabetes. Wt los of even 10 lbsis helpful. Kidney function is good. Keep appointment 07/09 for BP check. HOUSE HELPER documented in this encounter Plan of Treatment Upcoming Encounters Date Type Department Care Team (Late st Contact Info) Description 10/08/2024 1:30 PM WAREHOUSE HELPER Office Visit [facility] at Work [place] [address] [place] [address] Ashli Yusuf ANP [address] [place] [address] documented as of this encounter Procedures Procedure Name Priority Date/Time Associated Diagnosis Comments HEMOGLOBIN A1C Routine 07/02/2024 1:14 PM WAREHOUSE HELPER Elevated fasting glucose BASIC METABOLIC PANEL Routine 07/02/2024 1:14 PM WAREHOUSE HELPER Hypertension, uncontrolled documented in this encounter Results * (ABNORMAL) BASIC METABOLIC PANEL (07/02/2024 1:14 PM WAREHOUSE HELPER) GLUCOSE 103(H) 65 - 99 mg/dL [facility] [...] [facility] Comment: Test Performed at: [facility] [address] [address] [facility] [place] ??[address] Kristi Manzano MD Blood 07/02/2024 1:14 PM WAREHOUSE HELPER 07/03/2024 6:46 AM WAREHOUSE HELPER Ashli Darby Yusuf ANP CHEMISTRY ORDERABLES [facility] [phone] [facility] [address] [place] [address] [place] [address] * (ABNORMAL) HEMOGLOBIN A1C (07/02/2024 1:14 PM WAREHOUSE HELPER) HEMOGLOBIN A1C 5.7(H) <5.7 % of total Hgb [facility] Comment: For someone without known diabetes, [...] [facility] Comment: Test Performed at: [facility] [address] [facility] [place] Kristi Manzano MD Blood 07/02/2024 1:14 PM WAREHOUSE HELPER 07/03/2024 6:46 AM WAREHOUSE HELPER Ashli Yusuf ANP CHEMISTRY ORDERABLES [facility] [phone] [facility] [address] [place] [address] documented in this encounter Visit Diagnoses Diagnosis Elevated fasting glucose Impaired fasting glucose Hypertension, uncontrolled Unspecified essential hypertension documented in this encounter Care Teams Rubber Compounder Supervisor Relationship Specialty Start Date End Date Naomi Duenas MD [address] [place] [address] PCP - General Internal Medicine 06/11/24 documented as of this encounter
--- OUTSIDE RECORDS SUMMARY | 2024-08-19 03:21 | XMS_ITS | Encounter Summary ---
Author Organization [facility] Address [address] [place] [address] Care Team Providers Care Anthropology Professor Name Role Phone Anthony Mazariegos MD Primary Care Provider [phone] Reason for Visit * Reason Comments Hypertension Encounter Details Date Type Department Care Team (Late st Contact Info) Description 03/30/2024 7:30 AM CDT Office Visit [facility] at Work [employer] [place] [address] [place] [address] Naomi Duenas MD [address] [place] [address] Encounter to establish care (Primary Dx); Benign hypertension; WALI (obstructive sleep apnea); Morbid obesity with body mass index of 40.0-49.9; Primary osteoarthritis of both knees; History of prior cigarette smoking; Family history of colon cancer; Screening for AAA (abdominal aortic aneurysm); Need for pneumococcal vaccine Social History Tobacco Use Types Packs/Day Years Used Date Smoking Tobacco: Former Cigarettes 1 20 0 03/02/1978 - 03/02/1998 Smokeless Tobacco: Never Tobacco Cessation:Counseling Given: Not Answered Comments:21 years since my & I quit Alcohol Use Standard Drinks/Week Comments Yes 18 (1 standard drink = 0.6 oz pure alcohol) drink Tuesday and Tuesday Sex and Gender Information Value Date Recorded Sex Assigned at Not on file Gender Identity Not on file Sexual Orientation Not on file documented as of this encounter Last Filed Vital Signs Vital Sign Reading Time Taken Comments Blood Pressure 142/96 03/30/2024 7:20 AM CDT Pulse 66 03/30/2024 7:20 AM CDT Temperature 37.2 ??C (99 ??F) 03/30/2024 7:20 AM CDT Respiratory Rate 18 03/30/2024 7:20 AM CDT Oxygen Saturation 96% 03/30/2024 7:20 AM CDT Inhaled Oxygen Concentration - - Weight 128.4 kg (283 lb) 03/30/2024 7:20 AM CDT Height 172.7 cm (5' 8 ) 03/30/2024 7:20 AM CDT Body Mass Index 43.03 03/30/2024 7:20 AM CDT documented in this encounter Progress Notes * Naomi Dueans MD - 03/30/2024 7:32 AM CDT Krish Leyva is a 63 y.o. male Patient Active Problem List Diagnosis Code Family history of colon cancer Z80.0 Bilateral hearing loss H91.93 Bilateral tinnitus H93.13 Uses continuous positive airway pressure (CPAP) ventilation at home Z99.89 Benign hypertension I10 Sleep apnea G47.30 Allergy and medication list reviewed and updated. SUBJECTIVE: Chief Complaint/HPI: Patient presents today for establishing visit Has a history of HTN for which he has been using an OTC product Hypertension Hypertension-related review: taking medications as instructed, no side effects of medications, no chest pain on exertion, no dyspnea on exertion, no edema, no TIA's. Current Outpatient Medications on File Prior to Visit Medication Sig Dispense Refill OTHER Take 3 Tablets by mouth. Dick's Blood Pressure Factor: with calcium, magnesium, and [place] k[place]n. Per pt, he takes 3 tablets weekly cpap medical secretary CPAP 1 Each 0 No current facility-administered medications on file prior to visit. No Known Allergies Past Medical History: Diagnosis Date Arthritis some but excercise helps History of chicken pox Measles Mumps Sleep apnea Past Surgical History: Procedure Laterality Date HX SEPTOPLASTY 1983 HX SURGICAL OTHER 2012 bone spur removal PT DENIES RELEVANT SURGICAL HISTORY 7 years ago foot bone spur removed Family History Problem Relation Name Age of Onset Heart Disease Father Lalo Leyva Hypertension Father Lalo Leyva Heart Attack Father Lalo Leyva Aneurysm Mother Cancer Sister marty duran Breast Cancer Sister marty duran Colon Cancer Brother amalia leyva Unknown Maternal Grandmother Rebollar Unknown Maternal Grandfather unknown Hypertension Paternal Grandmother Sary Leyva Hypertension Paternal Grandfather Jorge Leyva Aneurysm Sister Cancer Brother Dick Leyva Hodgkin's lymphoma & throat removed Social History Tobacco Use Smoking status: Former Current packs/day: 0.00 Average packs/day: 1 pack/day for 20.0 years (20.0 ttl pk-yrs) Types: Cigarettes Start date: 03/02/1978 Quit date: 03/02/1998 Years since quittin.0 Smokeless tobacco: Never Tobacco comments: 21 years since my & I quit Substance Use Topics Alcohol use: Yes Alcohol/week: 18.0 standard drinks of alcohol Types: 18 Cans of beer per week Comment: drink Tuesday and Tuesday Lab Results Component Value Date/Time HGBA1C 5.3 06/08/2021 11:15 AM HGBA1C 5.5 07/04/2020 07:24 AM LDLCALC 88 12/23/2023 07:23 AM CREAT 0.90 12/23/2023 07:23 AM Lab Results Component Value Date/Time CHOLTOT 150 12/23/2023 07:23 AM CHOLTOT 142 01/07/2023 08:11 AM CHOLTOT 155 06/08/2021 11:15 AM HDL 47 12/23/2023 07:23 AM HDL 47 01/07/2023 08:11 AM HDL 56 06/08/2021 11:15 AM LDLCALC 88 12/23/2023 07:23 AM LDLCALC 81 01/07/2023 08:11 AM LDLCALC 0 01/29/2022 07:23 AM TRIGLYCERIDE 61 12/23/2023 07:23 AM TRIGLYCERIDE 67 01/07/2023 08:11 AM TRIGLYCERIDE 90 06/08/2021 11:15 AM ALT 31 12/23/2023 07:23 AM AST 23 12/23/2023 07:23 AM Lab Results Component Value Date/Time CREAT 0.90 12/23/2023 07:23 AM BUN 18 12/23/2023 07:23 AM NA 139 12/23/2023 07:23 AM K 4.6 12/23/2023 07:23 AM CL 103 12/23/2023 07:23 AM CO2 23 12/23/2023 07:23 AM GFR 95 12/23/2023 07:23 AM Lab Results Component Value Date/Time WBC 6.4 12/23/2023 07:23 AM HGB 16.1 12/23/2023 07:23 AM HCT 48.0 12/23/2023 07:23 AM PLT 191 12/23/2023 07:23 AM MCV 97.2 12/23/2023 07:23 AM Lab Results Component Value Date/Time ALT 31 12/23/2023 07:23 AM AST 23 12/23/2023 07:23 AM GGT 54 12/23/2017 07:20 AM ALKPHOS 48 12/23/2023 07:23 AM BILITOTAL 0.8 12/23/2023 07:23 AM Lab Results Component Value Date/Time TSH 2.08 12/23/2023 07:23 AM Lab Results Component Value Date/Time PSA 0.6 12/23/2023 07:23 AM PSA 0.69 06/08/2021 11:15 AM PSA 0.6 06/27/2020 07:46 AM Review of Systems - General ROS: negative for weight changes, fever Psychological ROS: negative for anxiety or depressive symptoms Ophthalmic ROS: negative for - blurry vision, decreased vision, double vision or loss of vision ENT ROS- bilateral hearing loss and chronic tinnitus Endocrine ROS: negative for - polydipsia/polyuria or temperature intolerance Respiratory ROS: negative for - cough, orthopnea or shortness of breath Cardiovascular ROS: negative for - chest pain, dyspnea on exertion, edema, irregular heartbeat or paroxysmal nocturnal dyspnea GI ROS: denies abdominal pain, indigestion, heartburn, difficulty swallowing, change in bowel habits, blood in stool Musculoskeletal ROS- positive for bilateral knee pain (arthritis) for which he treats with acupuncture Neurological ROS: negative for - dizziness, headaches, numbness/tingling or visual changes OBJECTIVE: He appears well, in no apparent distress. Vital signs documented in vital signs section and are reviewed. Blood pressure reading repeated by me was 160/100 Physical Examination: General appearance - alert, well appearing, and in no distress Mental status - alert, oriented to person, place, and time Eyes - pupils equal and reactive, extraocular eye movements intact ENT- TM clear Neck - carotids upstroke normal bilaterally, no bruits, thyroid exam: thyroid is normal in size without nodules or tenderness Chest - clear to auscultation, no wheezes, rales or rhonchi, symmetric air entry Heart - normal rate and regular rhythm, no murmurs noted Abdomen- soft, flat, non tender. No organomegaly, BS nml Neurological - alert, oriented, normal speech, no focal findings or movement disorder noted, cranial nerves II through XII intact Extremities - tr pedal edema noted, intact peripheral pulses ASSESSMENT AND PLAN: ICD-10-CM ICD-9-CM 1. Encounter to establish care Z76.89 V65.8 2. Benign hypertension I10 401.1 Uncontrolled. Continue walking program Do not add salt AND limits salty foods Weight loss- low fat, chol, carb weight loss diet Start : amLODIPine (NORVASC) 5 mg tablet SE discussed 3. WALI (obstructive sleep apnea) G47.33 327.23 Continue CPAP- states he is compliant 4. Morbid obesity with body mass index of 40.0-49.9 E66.01 278.01 Long discussion about obesity andthe significant negative impact it has on overall health and longevity. Low fat, chol, carb weight loss/ caloric restricted diet Exercise- 1 hour aerobic activity 5x weekly is goal Start slowly and work towards goal 5. Primary osteoarthritis of both knees M17.0 715.16 Weight loss Glucosamine he felt made him worse 6. History of prior cigarette smoking Z87.891 V15.82 Discussed screen for AAA 7. Family history of colon cancer Z80.0 V16.0 URTD on colonoscopy 8. Screening for AAA (abdominal aortic aneurysm) Z13.6 V81.2 Patient would like to verify covered by insurance before proceeding 9. Need for pneumococcal vaccine Z23 V03.82 Refer to [facility] or [facility] pharmacies to obtain Recommend Flu Vaccine in Oct Follow up visit 4 weeks- Check home blood pressure readings and bring with home cuff to next visit Appropriate medications prescribed and pt instructed in risks , benefits and side effects. Appropriate patient instructions provided . See details in AVS Medications and options explained to include common side effects. Understanding of medications, course, diagnosis, and expectations were expressed by patient/guardian. Pt advised to call my office in one week if not contacted with any ordered test results. Pt also advised to contact test scheduling in 3 days if has not been called to set up any ordered testing. Follow-up 4 weeks Answers submitted by the patient for this visit: High Blood Pressure Questionnaire (Submitted on 03/23/2024) Chief Complaint: Hypertension anxiety: No blurred vision: No chest pain: No headaches: No malaise/fatigue: No neck pain: No orthopnea: No palpitations: No peripheral edema: No PND: No shortness of breath: No sweats: No Compliance problems: medication side effects documented in this encounter Miscellaneous Notes * Patient Instructions - Naomi Duenas MD - 03/30/2024 8:11 AM CDT Check home blood pressure readings and bring with home cuff to next visit Need to get Pneumococcal vaccine documented in this encounter Plan of Treatment Upcoming Encounters Date Type Department Care Team (Late st Contact Info) Description 10/08/2024 1:30 PM ENGINEER SECOND ASSISTANT Office Visit [facility] at [facility] [place] [address] [place] [address] Ashli Yusuf, ANP [address] [facility] [address] [place] [address] documented as of this encounter Visit Diagnoses Diagnosis Encounter to establish care- Primary Reserved for inherently not codable concepts WITHOUT codable children Benign hypertension Essential hypertension, benign WALI (obstructive sleep apnea) Obstructive sleep apnea (adult) (pediatric) Morbid obesity with body mass index of 40.0-49.9 Primary osteoarthritis of both knees Primary localized osteoarthrosis, lower leg History of prior cigarette smoking Family history of colon cancer Family history of malignant neoplasm of gastrointestinal tract Screening for AAA (abdominal aortic aneurysm) Screening for other and unspecified cardiovascular conditions Need for pneumococcal vaccine Need for prophylactic vaccination against streptococcus pneumoniae (pneumococcus) documented in this encounter Care Teams Anthropology Professor Relationship Specialty Start Date End Date Anthony Mazariegos MD [address] [facility] [address] [place] [address] PCP - General Internal Medicine 01/07/23 06/10/24 documented as of this encounter
--- OUTSIDE RECORDS SUMMARY | 2024-08-19 03:21 | XMS_ITS | Encounter Summary ---
Author Organization [facility] Address [address] [place] [address] Care Team Providers Care Casting Technician Name Role Phone Anthony Mazariegos MD Primary Care Provider [phone] Reason for Visit * Reason Onset Date Comments fu needed 11/24/2023 Encounter Details Date Type Department Care Team (Late st Contact Info) Description 11/24/2023 Telephone [facility] at Work [facility] [address] [place] [phone] Cecilia Kaba MD [address] [place] [address] fu needed Social History Tobacco Use Types Packs/Day Years [...] * Telephone Encounter - Heather Pace - 11/24/2023 11:21 AM CDT Pt returned my phone call. Appt scheduled for 12/15 * Telephone Encounter - Heather Pace - 11/24/2023 11:03 AM CDT Left message for pt to return call. * Telephone Encounter - Cecilia Kaba MD - 11/24/2023 10:36 AM CDT Please call patient to schedule an in office provider visit to f/u bp documented in this encounter Plan of Treatment Upcoming Encounters Date Type Department Care Team (Late st Contact Info) Description 10/08/2024 1:30 PM HEALTH DIRECTOR Office Visit [facility] at Work [facility] [place] [address] [place] [address] Ashli Yusuf, ANP [address] [facility] [address] [facility] [address] [place] [address] documented as of this encounter Visit Diagnoses Not on filedocumented in this encounter Care Teams Casting Technician Relationship Specialty Start Date End Date Anthony Mazariegos MD [address] [facility] [address] [place] [phone] PCP - General Internal Medicine 01/07/23 06/10/24 documented as of this encounter
--- OUTSIDE RECORDS SUMMARY | 2024-08-19 03:21 | XMS_ITS | Encounter Summary ---
Author Organization [facility] Address [address] [place] [address] Care Team Providers Care Food And Beverage Director Name Role Phone Cecilia Kaba MD Primary Care Provider [phone] Reason for Visit * Reason Comments Sleep Problem Pt is in need for or ders for a CPAP. Encounter Details Date Type Department Care Team (Late st Contact Info) Description 08/06/2022 11:00 AM AUTO STRIPER Office Visit [facility] at Work [email or web address] [place] [address] [place] [address] Jennifer Dubois FNP NO ADDRESS ON FILE Uses continuous positive airway pressure (CPAP) ventilation at home (Primary Dx); WALI (obstructive sleep apnea); Screening for condition Social History Tobacco Use Types Packs/Day Years [...] Sign Reading Time Taken Comments Blood Pressure 146/84 08/06/2022 10:43 AM AUTO STRIPER Pulse 77 08/06/2022 10:43 AM AUTO STRIPER Temperature 37.1 ??C (98.8 ??F) 08/06/2022 10:[address] Respiratory Rate 18 08/06/2022 10:43 AM AUTO STRIPER Oxygen Saturation 97% 08/06/2022 10:43 AM AUTO STRIPER Inhaled Oxygen Concentration - - Weight 122.9 kg (271 lb) 08/06/2022 10:43 AM AUTO STRIPER Height 172.7 cm (5' 8 ) 08/06/2022 10:43 AM AUTO STRIPER Body Mass Index 41.21 08/06/2022 10:43 AM AUTO STRIPER documented in this encounter Progress Notes * Jennifer Dubois, LATA - 08/06/2022 10:55 AM CST HISTORY OF PRESENT ILLNESS Krish Leyva, a 61 y.o. male presents with a chief complaint of Chief Complaint Patient presents with Sleep Problem Pt is in need for orders for a CPAP. Subjective HPI Patient presents needing order for CPAP. He needs a new machine as his current one is 17+ years old. Pt uses CPAP machine every night and tolerates well. He requests script for this today. Will fax OVN and order to [facility] [place]. However, discussed he may need a repeat sleep study and would refer to sleep medicine. Patient verbalized understanding. It is noted that pt's BP is elevated at this visit and has been. Discussed with patient. He would like to hold off on medication at this time. Will come back in next week for fasting blood work and BP check. If BP still high, will recommend starting medication. Patient verbalized understanding. Denies cp, sob, reed, visual changes, dizziness, or leg swelling. 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 Depression Screen PHQ-2 Total: 0 (08/06/22 1000) Positive: PHQ-2 score >= 3 or PHQ-9 score >= 9 PHQ-2 Total: 0 (08/06/2022 10:00 AM) DEPRESSION PLAN OF CARE His depression screen was negative. Anxiety Screen No data recorded Blood Pressure BP Readings from Last 3 Encounters: 08/06/22 (!) 146/84 01/29/22 (!) 146/96 06/08/21 (!) 148/86 Normal BMI Range: 18 & older: > or = 18.5 and < 25 Body mass index is 41.21 kg/m??. Abnormal high BMI: BMI 40 or above: We talked about his diagnosis of morbid obesity: it's role in his current health conditions; risk of future morbidity/mortality and the importance of weight loss in improving these conditions as well as his overall health. Counseled regarding the benefits of a low calorie, well-balanced diet and daily exercise. Weight management options discussed. This medical record reflects the history of present illness as obtained by myself in discussion with the patient. ROS Review of Systems - as above in HPI Objective PHYSICAL EXAM Physical Examination: General appearance - alert, well appearing, and in no distress, oriented to person, place, and time, and overweight Mental status - alert, oriented to person, place, and time, normal mood, behavior, speech, dress, motor activity, and thought processes Chest - clear to auscultation, no wheezes, rales or rhonchi, symmetric air entry Heart - normal rate, regular rhythm, normal S1, S2, no murmurs, rubs, clicks or gallops Abdomen - soft, nontender, nondistended, no masses or organomegaly Neurological - alert, oriented, normal speech, no focal findings or movement disorder noted, motor and sensory grossly normal bilaterally, normal muscle tone, no tremors, Extremities - no pedal edema noted Assessment ASSESSMENT AND PLAN ICD-10-CM ICD-9-CM 1. Uses continuous positive airway pressure (CPAP) ventilation at home Z99.89 V46.8 2. WALI (obstructive sleep apnea) G47.33 327.23 cpap medical laboratory technicians 3. Screening for condition Z13.9 V82.9 CBC WITH DIFFERENTIAL COMPREHENSIVE METABOLIC PANEL HEMOGLOBIN A1C LIPID PANEL MICROALBUMIN/CREATININE RATIO, RANDOM UR T4 FREE TSH VITAMIN B12 LEVEL VITAMIN D 25 HYDROXY URINALYSIS WITH REFLEX MICROSCOPIC IRON, TIBC, AND PERCENT SATURATION FERRITIN PSA Will follow up on results of fasting blood work, urine, and BP. If patient needs new sleep study will place referral to sleep medicine. STRIPER documented in this encounter Plan of Treatment Upcoming Encounters Date Type Department Care Team (Late st Contact Info) Description 10/08/2024 1:30 PM AUTO STRIPER Office Visit [facility] at Work [email or web address] [place] [address] [place] [address] Ashli Yusuf, ANP [address] [place] [phone] documented as of this encounter Visit Diagnoses Diagnosis Uses continuous positive airway pressure (CPAP) ventilation at home- Primary WALI (obstructive sleep apnea) Obstructive sleep apnea (adult) (pediatric) Screening for condition Screening for unspecified condition documented in this encounter Care Teams Food And Beverage Director Relationship Specialty Start Date End Date [place] [phone] PCP - General Family Practice 12/07/21 01/06/23 documented as of this encounter
--- OUTSIDE RECORDS SUMMARY | 2024-08-19 03:21 | XMS_ITS | Encounter Summary ---
Author Organization [facility] Address [address] [place] [address] Care Team Providers Care Plywood Scarfer Tender Name Role Phone Cecilia Kaba MD Primary Care Provider [phone] Reason for Visit * Reason Onset Date Comments Appointment Verification 08/05/2022 Encounter Details Date Type Department Care Team (Late Contact Info) Description 08/05/2022 Telephone [facility] [employer] [place] [address] [place] [address] Jaay Ramos MD NO ADDRESS ON FILE Appointment [...] * Telephone Encounter - Josie Tello - 08/05/2022 1:42 PM CST LVM with a reminder for patients upcoming appointment on 08/06/22 at 11:00 am at the [facility] wellness[facility] E MACHINE OPERATOR documented in this encounter Plan of Treatment Upcoming Encounters Date Type Department Care Team (Late st Contact Info) Description 10/08/2024 1:30 PM LATHE MACHINE OPERATOR Office Visit [facility] at Work [employer] [place] [address] [place] [address] Ashli Yusuf, ANP [address] [place] [address] documented as of this encounter Visit Diagnoses Not on filedocumented in this encounter Care Teams Plywood Scarfer Tender Relationship Specialty Start Date End Date Cecilia Kaba MD [address] [place] [address] PCP - General Family Practice 12/07/21 01/06/23 documented as of this encounter
--- OUTSIDE RECORDS SUMMARY | 2024-08-19 03:21 | XMS_ITS | Encounter Summary ---
Author Organization [facility] Address [address] [place] [address] Care Team Providers Care Travel Freight And Passenger Agent Name Role Phone Anthony Mazariegos MD Primary Care Provider [phone] Encounter Details Date Type Department Care Team (Late st Contact Info) Description 01/31/2024 External Device Data STL ABSTRACTION Provider, Abstract [...] st Contact Info) Description 10/08/2024 1:30 PM DEPUTY JUVENILE OFFICER Office Visit [facility] at Work [employer] [place] [address] [place] [address] Ashli Yusuf, ANP [address] [place] [address] documented as of this encounter Visit Diagnoses Not on filedocumented in this encounter Care Teams Travel Freight And Passenger Agent Relationship Specialty Start Date End Date Anthony Mazariegos MD [address] [facility] [address] [place] [address] PCP - General Internal Medicine 01/07/23 06/10/24 documented as of this encounter
--- OUTSIDE RECORDS SUMMARY | 2024-08-19 03:21 | XMS_ITS | Encounter Summary ---
Author Organization [facility] Address [address] [facility] Attn: Epic [facility] [place] [address] Care Team Providers Care Gift Manager Name Role Phone Jaya Ramos MD Primary Care Provider Unava ilable Encounter Details Date Type Department Care Team (Latest Contact Info) Description 06/08/2021 Travel Social History Tobacco Use Types Packs/Day Years [...] on file Sexual Orientation Not on file COVID-19 Exposure Response Date Recorded In the last month, have you been in contact with someone who was confirmed or suspected to have Coronavirus / COVID-19? No / Unsure 06/08/2021 10:50 AM CDT documented as of this encounter Plan of Treatment Upcoming Encounters Date Type Department Care Team (Late st Contact Info) Description 10/08/2024 1:30 PM MEDICAL RECEPTION Office Visit [facility] at Work [employer] [place] [address] [place] [address] Ashli Yusuf[place] ANP [address] [place] [address] documented as of this encounter Visit Diagnoses Not on filedocumented in this encounter Care Teams Gift Manager Relationship Specialty Start Date End Date Jaya Ramos MD PCP - General Family Practice 06/15/19 12/06/21 documented as of this encounter
--- OUTSIDE RECORDS SUMMARY | 2024-08-19 03:21 | XMS_ITS | Encounter Summary ---
Author Organization [facility] Address [address] [place] [address] Care Team Providers Care Group Insurance Specialist Name Role Phone Anthony Mazariegos MD Primary Care Provider [phone] Encounter Details Date Type Department Care Team (Late st Contact Info) Description 04/25/2024 External Device Data STL ABSTRACTION Provider, Abstract [...] st Contact Info) Description 10/08/2024 1:30 PM TRADER Office Visit [facility] at Work [address] [place] [address] [place] [address] Ashli Yusuf, ANP [address] [place] [address] documented as of this encounter Visit Diagnoses Not on filedocumented in this encounter Care Teams Group Insurance Specialist Relationship Specialty Start Date End Date Anthony Mazariegos MD [address] [facility] [address] [place] [address] PCP - General Internal Medicine 01/07/23 06/10/24 documented as of this encounter
--- OUTSIDE RECORDS SUMMARY | 2024-08-19 03:21 | XMS_ITS | Encounter Summary ---
Author Organization [facility] Address [address] [place] [address] Care Team Providers Care Fire Regulator Name Role Phone Anthony Mazariegos MD Primary Care Provider [phone] Encounter Details Date Type Department Care Team (Late st Contact Info) Description 09/25/2023 External Device Data STL ABSTRACTION Provider, Abstract [...] st Contact Info) Description 10/08/2024 1:30 PM TRAFFIC INVESTIGATOR Office Visit [facility] at Work [employer] [place] [address] Ashli Yusuf, ANP [address] [place] [address] documented as of this encounter Visit Diagnoses Not on filedocumented in this encounter Care Teams Fire Regulator Relationship Specialty Start Date End Date Anthony Mazariegos MD [address] [facility] [address] [place] [address] PCP - General Internal Medicine 01/07/23 06/10/24 documented as of this encounter
--- OUTSIDE RECORDS SUMMARY | 2024-08-19 03:21 | XMS_ITS | Encounter Summary ---
Author Organization [facility] Address [address] [place] [address] Care Team Providers Care Analysis Analyst Name Role Phone Anthony Mazariegos MD Primary Care Provider [phone] Reason for Visit * Reason Onset Date Comments normal imaging. 10/20/2023 Encounter Details Date Type Department Care Team (Late st Contact Info) Description 10/20/2023 Telephone [facility] at Work [employer] [place] [address] [place] [address] Cecilia Kaba MD [address] [place] [address] normal imaging. Social History Tobacco Use Types Packs/Day Years [...] * Telephone Encounter - Heather Pace - 10/20/2023 3:44 PM CST Called pt, was informed of message. Pt will call back to schedule appt BILITY ADVOCATE * Telephone Encounter - Cecilia Kaba MD - 10/20/2023 3:27 PM CST Please let patient know the MR was normal. Please schedule him a f/u bp visit as well. BILITY ADVOCATE documented in this encounter Plan of Treatment Upcoming Encounters Date Type Department Care Team (Late st Contact Info) Description 10/08/2024 1:30 PM DISABILITY ADVOCATE Office Visit [facility] at Work [employer] [place] [address] [place] [address] Ashli Yusuf, ANP [address] [facility] [address] [place] [address] documented as of this encounter Visit Diagnoses Not on filedocumented in this encounter Care Teams Analysis Analyst Relationship Specialty Start Date End Date Anthony Mazariegos MD [address] [facility] [address] [place] [address] PCP - General Internal Medicine 01/07/23 06/10/24 documented as of this encounter
--- OUTSIDE RECORDS SUMMARY | 2024-08-19 03:21 | XMS_ITS | Encounter Summary ---
Author Organization [facility] Address [address] [place] [address] Care Team Providers Care Timber Treating Tank Operator Name Role Phone Anthony Mazariegos MD Primary Care Provider [phone] Encounter Details Date Type Department Care Team (Late Contact Info) Description 10/17/2023 Orders Only [facility] [employer] [place] [address] [place] [address] Heather Pace Family history of brain aneurysm Social History Tobacco Use Types Packs/Day Years [...] (Late Contact Info) Description 10/08/2024 1:30 PM LEGAL WRITING PROFESSOR Office Visit [facility] [employer] [place] [address] [place] [address] Ashli Yusuf, ANP [address] [facility] [address] [place] [address] documented as of this encounter Visit Diagnoses Diagnosis Family history of brain aneurysm Family history of other cardiovascular diseases documented in this encounter Care Teams Timber Treating Tank Operator Relationship Specialty Start Date End Date Anthony Mazariegos MD [address] [place] [address] [phone] PCP - General Internal Medicine 01/07/23 06/10/24 documented as of this encounter
--- OUTSIDE RECORDS SUMMARY | 2024-08-19 03:21 | XMS_ITS | Encounter Summary ---
Author Organization [facility] Address [address] [place] [address] Care Team Providers Care Powder Compounder Name Role Phone Anthony Mazariegos MD Primary Care Provider [phone] Encounter Details Date Type Department Care Team [...] st Contact Info) Description 10/08/2024 1:30 PM CHARM FILTER OPERATOR HELPER Office Visit [facility] at Work [employer] [place] [address] [address] Ashli Yusuf, ANP [address] [place] [address] documented as of this encounter Visit Diagnoses Not on filedocumented in this encounter Care Teams Powder Compounder Relationship Specialty Start Date End Date Anthony Mazariegos MD [address] [facility] [address] [place] [address] PCP - General Internal Medicine 01/07/23 06/10/24 documented as of this encounter
--- OUTSIDE RECORDS SUMMARY | 2024-08-19 03:21 | XMS_ITS | Encounter Summary ---
Author Organization [facility] Address [address] [place] [address] Care Team Providers Care Mining Consultant Name Role Phone Anthony Mazariegos MD Primary Care Provider [phone] Encounter Details Date Type Department Care Team (Late st Contact Info) Description 11/22/2023 External Device Data STL ABSTRACTION Provider, Abstract [...] st Contact Info) Description 10/08/2024 1:30 PM JIRA DEVELOPER Office Visit [facility] at Work [employer] [place] [address] [place] [address] Ashli Yusuf, ANP [address] [place] [address] documented as of this encounter Visit Diagnoses Not on filedocumented in this encounter Care Teams Mining Consultant Relationship Specialty Start Date End Date Anthony Mazariegos MD [address] [facility] [address] [place] [address] PCP - General Internal Medicine 01/07/23 06/10/24 documented as of this encounter
--- OUTSIDE RECORDS SUMMARY | 2024-08-19 03:21 | XMS_ITS | Encounter Summary ---
Author Organization [facility] Address [address] [place] [address] Care Team Providers Care Appliance Parts Counter Clerk Name Role Phone Anthony Mazariegos MD Primary Care Provider [phone] Reason for Visit * Reason Onset Date Comments Results 12/26/2023 Encounter Details Date Type Department Care Team (Late st Contact Info) Description 12/26/2023 Telephone [facility] [employer] [place] [address] [place] [address] Carla Prado [facility] [address] [place] [address] Results Social History Tobacco Use Types Packs/Day Years [...] encounter Miscellaneous Notes * Telephone Encounter - Sapna Morel - 12/28/2023 2:45 PM CDT Patient called back and scheduled his 3 month appt. * Telephone Encounter - Heather Pace - 12/28/2023 10:48 AM CDT Left message for pt to return call. * Telephone Encounter - Carla Prado ANP - 12/28/2023 10:39 AM CDT Please call pt- lab results look good for blood counts, liver, kidneys, thyroid, and PSA. I discussed Free PSA number with Dr. Kaba as I'm not familiar with that level. She said when total PSA is that low no concern w/ free PSA number. Fasting blood sugar is mildly elevated- if we can still add on a A1C let's do that. If not, let's have pt schedule 3 mo appt for HTN f/u and fasting lab draw to recheck FBS, adding A1C. Please let me know which way to proceed- I can put orders in. Thanks documented in this encounter Plan of Treatment Upcoming Encounters Date Type Department Care Team (Late st Contact Info) Description 10/08/2024 1:30 PM HOME DEMONSTRATION AGENT Office Visit [facility] [employer] [place] [address] [place] [place] [address] Ashli Yusuf, AIMEE [address] [place] [address] documented as of this encounter Visit Diagnoses Not on filedocumented in this encounter Care Teams Appliance Parts Counter Clerk Relationship Specialty Start Date End Date Anthony Mazariegos MD [address] [facility] [address] [place] [address] PCP - General Internal Medicine 01/07/23 06/10/24 documented as of this encounter
--- OUTSIDE RECORDS SUMMARY | 2024-08-19 03:21 | XMS_ITS | Encounter Summary ---
Author Organization [facility] Address [address] [place] [address] Care Team Providers Care Retort Forker Name Role Phone Anthony Mazariegos MD Primary Care Provider [phone] Reason for Visit * Reason Onset Date Comments MRI 09/19/2023 Encounter Details Date Type Department Care Team (Late st Contact Info) Description 09/19/2023 Telephone [facility] [employer] [place] [place] [address] Cecilia Kaba MD [address] [place] [address] MRI Social History Tobacco Use Types Packs/Day Years [...] * Telephone Encounter - Heather Pace - 10/12/2023 11:56 AM CST Pt called back states that he goes to [facility]. Sending over a records request HEALTH CLINICIAN * Telephone Encounter - Heather Pace - 09/19/2023 11:04 AM CST Left pt a voicemail to return call HEALTH CLINICIAN * Telephone Encounter - Cecilia Kaba MD - 09/19/2023 9:49 AM CST Please call patient to see if he has done his MRI. If so, where? Please call for results. HEALTH CLINICIAN documented in this encounter Plan of Treatment Upcoming Encounters Date Type Department Care Team (Late st Contact Info) Description 10/08/2024 1:30 PM HOME HEALTH CLINICIAN Office Visit [facility] at Work [employer] [place] [address] [place] [address] Ashli Yusuf, ANP [address] [place] [address] documented as of this encounter Visit Diagnoses Not on filedocumented in this encounter Care Teams Retort Forker Relationship Specialty Start Date End Date Anthony Mazariegos MD [address] [facility] [address] [place] [address] PCP - General Internal Medicine 01/07/23 06/10/24 documented as of this encounter
--- OUTSIDE RECORDS SUMMARY | 2024-08-19 03:21 | XMS_ITS | Encounter Summary ---
Author Organization [email or web address] Address [address] [place] [address] Care Team Providers Care Compensation Expert Name Role Phone Anthony Mazariegos MD Primary Care Provider [phone] Reason for Visit * Reason Comments Medication Refill Encounter Details Date Type Department Care Team (Latest Contact Info) Description 04/26/2024 3:55 PM CDT Procedure visit [facility] [employer] [place] [address] [place] [address] Encounter for issue of repeat prescription (Primary Dx) Social History Tobacco Use Types [...] as of this encounter Progress Notes * Rose Marie Bonds, DIANNA - 04/26/2024 3:56 PM CDT Amlodipine 5mg QD #30. No refills. documented in this encounter Plan of Treatment Upcoming Encounters Date Type Department Care Team (Late st Contact Info) Description 10/08/2024 1:30 PM GRAVEL WHEELER Office Visit [facility] [employer] [place] [address] [place] [address] Ashli Yusuf, ANP [address] [place] [address] documented as of this encounter Visit Diagnoses Diagnosis Encounter for issue of repeat prescription- Primary Issue of repeat prescriptions documented in this encounter Care Teams Compensation Expert Relationship Specialty Start Date End Date Anthony Mazariegos MD [address] [facility] [address] [place] [address] PCP - General Internal Medicine 01/07/23 06/10/24 documented as of this encounter
--- OUTSIDE RECORDS SUMMARY | 2024-08-19 03:21 | XMS_ITS | Encounter Summary ---
Author Organization [facility] Address [address] [place] [address] Care Team Providers Care Termite Treater Name Role Phone Naomi Duenas MD Primary Care Provider [phone] Reason for Visit * Reason Comments Hypertension Encounter Details Date Type Department Care Team (Late st Contact Info) Description 06/11/2024 1:30 PM CDT Office [facility] at [facility] [employer] [place] [address] [place] [address] Ashli Yusuf, ANP [address] [facility] [address] [place] [address] Hypertension, uncontrolled (Primary Dx); WALI (obstructive sleep apnea); Elevated fasting glucose Social History Tobacco Use Types Packs/Day Years [...] Sign Reading Time Taken Comments Blood Pressure 166/78 06/11/2024 1:56 PM CDT Pulse 69 06/11/2024 1:14 PM CDT Temperature 36.7 ??C (98.1 ??F) 06/11/2024 1:14 PM CD T Respiratory Rate 18 06/11/2024 1:14 PM CDT Oxygen Saturation 97% 06/11/2024 1:14 PM CDT Inhaled Oxygen Concentration - - Weight 131.5 kg (290 lb) 06/11/2024 1:14 PM CDT Height 172.7 cm (5' 8 ) 06/11/2024 1:14 PM CDT Body Mass Index 44.09 06/11/2024 1:14 PM CDT documented in this encounter Progress Notes * Ashli Yusuf, ANP - 06/11/2024 1:23 PM CDTAssociated Order(s): EKG 12-LEAD Pre-Procedure Diagnose(s): Hypertension, uncontrolled Post-Procedure Diagnose(s): Hypertension, uncontrolled HISTORY OF PRESENT ILLNESS Krish Leyva, a 63 y.o. male presents with a Chief Complaint of Hypertension Just returned from vacation. Missed 4 days of his amlodipine 5 mg while gone. Lower leg swelling side effect improved while off the medication. Also felt his face saw swelling. No home BP checks. Walking to stay active. Has gained wt. Takes OTC Mg supplement for BP control, but out of this recentlyas well. He read about HCTZ or other diuretics and would like treatment with that type drug. REVIEW OF SYSTEMS Review of Systems Respiratory: Negative for shortness of breath. Cardiovascular: Positive for leg swelling (ankles late in day.). Negative for chest pain and palpitations. Musculoskeletal: Negative for neck pain. Neurological: Negative for headaches. Psychiatric/Behavioral: Negative for sleep disturbance (using CPAP). Objective PHYSICAL EXAM BP (!) 166/78 (BP Location: Left arm, Patient Position (BP): Sitting, BP Cuff Size: Large Adult) Pulse 69 Temp 98.1 ??F (36.7 ??C) (Temporal) Resp 18 Ht 5' 8 (1.727 m) Wt 131.5 kg (290 lb) SpO2 97% BMI 44.09 kg/m?? Physical Exam Vitals reviewed. HENT: Mouth/Throat: [...] Ashli Yusuf ANP Previous ECG: no previous ECG available Rhythm: sinus rhythm BPM: 71 QRS axis: normal Conduction: conduction normal ST Segments: ST segments normal T Waves: T waves normal Other findings comments: no LVH. Clinical impression: normal ECG Comments: GA 168 ms , QTc 443 ms Assessment ASSESSMENT and PLAN: 1. Hypertension, uncontrolled Stop amlodipine. Change to ARB. Once daily. Discussed BP too elevated to respond fully to HCTZ. Discussed may need to add to current regimen infuture. - EKG 12-LEAD - Irbesartan (AVAPRO) 75 mg tablet; Take 1 Tablet (75 mg) by mouth daily. Dispense: 30 Tablet; Refill: 3 - BASIC METABOLIC PANEL; Future-- ck in 3 weeks. 2. WALI (obstructive sleep apnea) Continue CPAP 3. Elevated fasting glucose With next labs. - HEMOGLOBIN A1C; Future FOLLOW UP Return in about 4 weeks (around 07/09/2024) for HTN. non fasting labs one week prior to appointment. . Appropriate medications prescribed [...] with any ordered test results. AIMEE Almeida 06/11/2024 [facility] [employer] [facility] [employer] [address] [address] Some of this encounter may have been transcribed using [employer] Speaking computerized voicerecognition without a human picking machine operator helper. This report may or may not have been adjusted for typographical or medical and syntax errors. documented in this encounter Miscellaneous Notes * Patient Instructions - Ashli Yusuf ANP - 06/11/2024 1:55 PM CDT Change blood pressure medication to Irbesartan 75 mg pill . Take one pill daily. You do not need to take the magnesium daily for blood pressure. Check your home blood pressure twice weekly.. keep record and bring to appointment. Blood test in 3 weeks. -- NO FASTING IS NEEDED. Appointment with us again in 4 weeks. documented in this encounter Plan of Treatment Upcoming Encounters Date Type Department Care Team (Late st Contact Info) Description 10/08/2024 1:30 PM THERAPY COORDINATOR Office Visit [facility] [employer] [place] [address] [facility] [place] [address] Ashli Yusuf ANP [address] [facility] [address] [place] [address] documented as of this encounter Procedures Procedure Name Priority Date/Time Associated Diagnosis Comments GA ECG ROUTINE ECG W/LEAST 12 LDS W/I&R Routine 06/11/2024 1:30 PM CDT Hypertension, uncontrolled documented in this encounter Results * (ABNORMAL) HEMOGLOBIN A1C (07/02/2024 1:14 PM THERAPY COORDINATOR) HEMOGLOBIN A1C 5.7(H) <5.7 % of total [...] [facility] Comment: Test Performed at: [email or web address] [address] [place], [place] ??[phone] Kristi Manzano MD Blood 07/02/2024 1:14 PM THERAPY COORDINATOR 07/03/2024 6:46 AM THERAPY COORDINATOR Ashli Pastor Paramjit [facility] CHEMISTRY ORDERABLES [facility] [phone] [address] * (ABNORMAL) BASIC METABOLIC PANEL (07/02/2024 1:14 PM THERAPY COORDINATOR) GLUCOSE 103(H) 65 - 99 mg/dL [facility] BUN/CREAT RATIO SEE NOTE: 6 22 (calc) [facility] Comment: ?? [...] [facility] Comment: Test Performed at: [email or web address] ??[phone] Kristi Manzano MD Blood 07/02/2024 1:14 PM THERAPY COORDINATOR 07/03/2024 6:46 AM THERAPY COORDINATOR Ashli YU CHEMISTRY ORDERABLES [facility] [phone] [email or web address] [address] [place] [address] * GA ECG ROUTINE ECG W/LEAST 12 LDS W/I&R (06/11/2024 1:30 PM CDT) Narrative [facility] [place] - 06/11/2024 1:30 PM CDT Ashli Yusuf [...] no LVH. Clinical impression: normal ECG Comments: GA 168 ms , QTc 443 ms Procedure [...] no LVH. Clinical impression: normal ECG Comments: GA 168 ms , QTc 443 ms Assessment [...] PANEL; Future-- ck in 3 weeks. 2. AWLI (obstructive sleep apnea) Continue CPAP 3. Elevated [...] with any orderedtest results. AIMEE Almeida 06/11/2024 [facility] AT [address] [address] Some of this encounter may have been transcribed using [employer] computerized voice recognition without a human picking machine operator helper.This report may or may not have been adjusted for typographical or medicaland syntax errors. Ashli YU ECG ORDERABLES [facility]# [id number] [address] [place] [address] documented in this encounter Visit Diagnoses Diagnosis Hypertension, uncontrolled- Primary Unspecified essential hypertension WALI (obstructive sleep apnea) Obstructive sleep apnea (adult) (pediatric) Elevated fasting glucose Impaired fasting glucose documented in this encounter Care Teams Termite Treater Relationship Specialty Start Date End Date Naomi Duenas MD [address] [place] [address] PCP - General Internal Medicine 06/11/24 documented as of this encounter
--- OUTSIDE RECORDS SUMMARY | 2024-08-19 03:21 | XMS_ITS | Encounter Summary ---
Author Organization [facility] Address [address] [place] [address] Care Team Providers Care Medical Assistant Float Name Role Phone Anthony Mazariegos MD Primary Care Provider [phone] Encounter Details Date Type Department Care Team (Late st Contact Info) Description 08/12/2023 External Device Data STL ABSTRACTION Provider, Abstract [...] st Contact Info) Description 10/08/2024 1:30 PM CLINICAL ALLERGIST Office Visit [facility] at Work [employer] [place] [address] [address] Ashli Yusuf, ANP [address] [place] [address] documented as of this encounter Visit Diagnoses Not on filedocumented in this encounter Care Teams Medical Assistant Float Relationship Specialty Start Date End Date Anthony Mazariegos MD [address] [facility] [address] [place] [address] PCP - General Internal Medicine 01/07/23 06/10/24 documented as of this encounter
--- OUTSIDE RECORDS SUMMARY | 2024-08-19 03:22 | XMS_ITS | Encounter Summary ---
Author Organization [facility] Address [address] [place] [address] Care Team Providers Care Data Conversion Developer Name Role Phone Jaya Ramos MD Primary Care Provider Unava ilable Reason for Visit * Eval and Treat (Routine) - Closed Specialty Diagnoses / Procedures Referred By Contac t Referred To Contact Audiology Diagnoses Bilateral hearing loss, unspecified hearing loss type Mallorie Sheth, PATEL [address] [place] [address] Makeda Ivy AU.D [address] [place] [address] Referral ID Status Reason Start Date Expiration Date Visits Requested Visits Authorized [id number] Closed Performing Department To Schedule (STL) 06/15/2019 06/15/2020 1 1 Encounter Details Date Type Department Care Team (Latest Contact Info) Description 07/05/2019 2:13 PM DRAW FRAME RUNNER - 07/05/2019 11:59 PM [facility] Hospital Encounter [facility] [address], [address] [place] [address] Makeda Ivy AU.D [address] [place] [address] Jaya Ramos MD NO ADDRESS ON FILE Discharge Disposition: Home or Self Care Social History Tobacco Use Types Packs/Day Years Used Date Smoking Tobacco: Former Cigarettes 1 25 0 03/02/1973 - 03/02/1998 Smokeless Tobacco: Never Comments:21 years since my w kala & I quit Alcohol Use Standard Drinks/Week Comments Yes 18 (1 standard drink = 0.6 oz pure alcohol) Drink Tuesday, Tuesday, & Tuesday Sex and Gender Information Value Date Recorded Sex Assigned at Not on file Gender Identity Not on file Sexual Orientation Not on file documented as of this encounter Procedure Notes * Makeda Larkin AU.D - 07/05/2019 3:00 PM CST Images from the original note were not included. Report of Audiologic Evaluation Patient Name: Krish Leyva Date of : 1960 Test Date: 07/05/2019 Test Location: [facility], [facility] [address], [address] Referring Physician: Dr. 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 He was previously seen on 04/19/2019 which revealed mild to moderate mid to high frequency sensorineural hearing loss, bilaterally. Mr. Leyva reported bilateral tinnitus which is constant. He noted ocasional dizziness which he describes as the room spinning. This sensation can be brought on by moving his head in a certain direction and lasts 5-15 seconds. Mr. Leyva stated he has difficulties understanding speech in many situations. He reported a history of ear infections, but he has not had any in the past several years. Mr. Leyva suffered from a head trauma when he was in highschool, but he did not fracture any bones of the skull. He denied otalgia, a history of ear surgery, and a family history of hearing loss. 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 Hearing protection devices were utilized. Otoscopy: RIGHT: Tympanic membrane visualized LEFT: Tympanic membrane visualized Tympanogram: RIGHT: Peaked with normal tympanic peak pressure, normal ear canal volume, and normal tympanic membrane mobility. LEFT: Peaked with normal tympanic peak pressure, normal ear canal volume, and normal tympanic membrane mobility. Behavioral Audiometry: Findings: Today's test results revealed mild sloping to moderate mid to high frequency sensorineural hearing loss, bilaterally. The speech crayon sawyer thresholds were obtained in the normal hearing range and areconsistent with pure-tone findings. Word recognition revealed good word clarity, in both ears. Tympanometry revealed normal tympanic membrane mobility, bilaterally. Recommendations: -Follow-up with referring physician -Annual audiogram -Audiogram as medically indicated -Hearing aid trial, pending medical clearance -Hearing protection in noise -Contact [facility]iology as needed Dx Code: H90.3 Hunter [place], [facility] Clinical Journeyman Wireman [facility] Department of Audiology FRAME RUNNER documented in this encounter Plan of Treatment Upcoming Encounters Date Type Department Care Team (Late st Contact Info) Description 10/08/2024 1:30 PM DRAW FRAME RUNNER Office Visit [facility] [place] [address] [place] [address] Ashli Yusuf, ANP [address] [facility] [address] [facility] [address] [place] [address] Scheduled Referrals Name Type Priority Associated Diagnoses Orde r Schedule AMB REFERRAL TO AUDIOLOGY Outpatient Referral Routine Bilateral hearing loss, unspecified hearing loss type Ordered: 06/15/2019 documented as of this encounter Visit Diagnoses Not on filedocumented in this encounter Care Teams Data Conversion Developer Relationship Specialty Start Date End Date Jaya Ramos MD PCP - General Family Practice 06/15/19 12/06/21 documented as of this encounter
--- OUTSIDE RECORDS SUMMARY | 2024-08-19 03:22 | XMS_ITS | Encounter Summary ---
Author Organization [facility] Address [address] [place] [address] Care Team Providers Care Color Print Inspector Name Role Phone Jaya Ramos MD Primary Care Provider Unacarlene ilable Reason for Visit * Reason Comments Follow Up Encounter Details Date Type Department Care Team (Late st Contact Info) Description 07/24/2019 1:00 PM MOMD TEACHER Office Visit [facility] at [facility] [employer] [place] [address] [place] [id number] Mallorie Sheth, COMPUTATIONAL SCIENCES PROFESSOR [address] [facility] [address] [place] [address] Bilateral tinnitus (Primary Dx); Bilateral hearing loss, unspecified hearing loss type Social History Tobacco Use Types Packs/Day Years [...] Sign Reading Time Taken Comments Blood Pressure 142/84 07/24/2019 1:01 PM MOMD TEACHER Pulse 68 07/24/2019 1:01 PM MOMD TEACHER Temperature 37.1 ??C (98.7 ??F) 07/24/2019 1:01 PM CS T Respiratory Rate 20 07/24/2019 1:01 PM MOMD TEACHER Oxygen Saturation 96% 07/24/2019 1:01 PM MOMD TEACHER Inhaled Oxygen Concentration - - Weight 117.9 kg (260 lb) 07/24/2019 1:01 PM MOMD TEACHER Height 172.7 cm (5' 8 ) 07/24/2019 1:01 PM MOMD TEACHER Body Mass Index 39.53 07/24/2019 1:01 PM MOMD TEACHER documented in this encounter Progress Notes * Mallorie Sheth, PATEL - 07/25/2019 9:58 AM CST HISTORY OF PRESENT ILLNESS Krish Leyva is a 58 y.o. male who presents for Chief Complaint Patient presents with ??? Follow Up Pt returns after seeing Dr Ivy for audiology evaluation. Requesting a medical note about his hearing loss and hx revolving around this. He is wanting to claim partial disability for hearing loss, tinnitus from the . Past Medical History: Diagnosis Date ??? History of chicken pox ??? Measles ??? Mumps ??? Sleep apnea No current outpatient medications on file. No current facility-administered medications for this visit. No Known Allergies BP (!) 142/84 (BP Location: Left arm, Patient Position (BP): Sitting, BP Cuff Size: Large Adult) Pulse 68 Temp 98.7 ??F (37.1 ??C) (Tympanic) Resp 20 Ht 5' 8 (1.727 m) Wt 117.9 kg (260 lb) SpO2 96% BMI 39.53 kg/m?? MEDICAL RECORD UPDATE Past Medical History: Diagnosis Date ??? History of chicken pox ??? Measles ??? Mumps ??? Sleep apnea Past Surgical History: Procedure Laterality Date ??? HX SEPTOPLASTY 1983 ??? HX SURGICAL OTHER 2013 bone spur removal Family History Problem Relation Name Age of Onset ??? Heart Disease Father Lalo Leyva ??? Hypertension Father Lalo Leyva ??? Heart Attack Father Lalo Leyva ??? Aneurysm Mother ??? Cancer Sister marty duran ??? Breast Cancer Sister marty duran ??? Colon Cancer Brother amalia leyva ??? Unknown Maternal Grandmother Smooth ??? Unknown Maternal Grandfather unknown ??? Hypertension Paternal Grandmother Sary Leyva ??? Hypertension Paternal Grandfather Jorge Leyva ??? Aneurysm Sister Current medications and allergies were reviewed and updated in computerized patient record. [id number] [place] [id number] Care Providers: Patient Care Team: Jaya Ramos MD as PCP - General (Family Practice) No Patient Care Coordination Note on file. Vital signs/Tobacco use BP (!) 142/84 (BP Location: Left arm, Patient Position (BP): Sitting, BP Cuff Size: Large Adult) Pulse 68 Temp 98.7 ??F (37.1 ??C) (Tympanic) Resp 20 Ht 5' 8 (1.727 m) Wt 117.9 kg (260 lb) SpO2 96% BMI 39.53 kg/m?? Blood Pressure BP Readings from Last 3 Encounters: 07/24/19 (!) 142/84 06/15/19 126/82 04/06/19 138/88 BMI POC (QM) Body mass index is 39.53 kg/m??. Normal BMI range: 18 & older: > or = 18.5 and < 25 Abnormal high BMI: Patient counseled on lifestyle modifications including weight loss and daily exercise. The 10-year CVD risk score (D'Agostino, et al., 2008) is: 11.2% Values used to calculate the score: Age: 58 years Sex: Male Diabetic: No Tobacco smoker: No Systolic Blood Pressure: 142 mmHg Is BP treated: No HDL Cholesterol: 49 mg/dL Total Cholesterol: 135 mg/dL Consider Statins if 10 year risk >7.5-10% Tobacco Use (QM) reports that he quit smoking about 21 years ago. His smoking use included cigarettes. He has a 25.00 pack-year smoking history. He has never used smokeless tobacco. He is not a tobacco user. EXAMINATION REVIEW OF SYSTEMS Review of Systems Constitutional: Negative. HENT: Positive for hearing loss and tinnitus. Getting a hearing aids next week. Respiratory: Negative for cough. Cardiovascular: Negative. Negative for chest pain and palpitations. Skin: Negative. Neurological: Negative for dizziness and headaches. Psychiatric/Behavioral: Negative for depression. Objective PHYSICAL EXAM Physical Exam Constitutional: Appearance: He is well-developed. HENT: Head: Normocephalic and atraumatic. Nose: Nose normal. Eyes: Conjunctiva/sclera: Conjunctivae normal. Cardiovascular: Rate and Rhythm: Normal rate and regular rhythm. Heart sounds: Normal heart sounds, S1 normal and S2 normal. No murmur. No friction rub. No gallop. Pulmonary: Effort: Pulmonary effort is normal. No respiratory distress. Breath sounds: Normal breath sounds. No wheezing or rales. Skin: General: Skin is warm and dry. Neurological: Mental Status: He is alert and oriented to person, place, and time. No results found for any visits on 07/24/19 (from the past 24 hour(s)). ASSESSMENT and PLAN: Krish was seen today for follow up. Diagnoses and all orders for this visit: Bilateral tinnitus Bilateral hearing loss, unspecified hearing loss type Reviewed records that pt brings for review including hearing tests, previous evals for hearing loss and disability etc. 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 2013 denied hearing loss disability, appealed 2016. Audiogram results 04/23/1982 R/L 35/45 @ 6000 hz 1984 R/L 40/30 @ 6000 hz 01/10/89 R/L 40/55 @ 6000 hz 06/08/1989 R/L 40/55 @ 6000 hz 1990 R/L 50/75 @ 6000 hz 04/11/19 R/L 50/55 @ 4000, 65/50 @8000 hz 07/05/19 R/L 45/45 @ 4000, 55/55 @ 8000 hz Reviewed letter written by Dr Makeda Ivy Carotid Duplex scan 01/05/13 negative. Barium Swallow neg 06/16/1996, Severely comminuted fracture of nasal bones with possible fx floor of left orbit and lateral wall of the left antrum. 06/07/1981 Phonak hearing aids recommended and will receive next week- bilateral. Will email Dr Ivy via [employer] to discuss her thoughts on this pt's hearing loss in the context of disability. TEACHER documented in this encounter Plan of Treatment Upcoming Encounters Date Type Department Care Team (Late st Contact Info) Description 10/08/2024 1:30 PM MOMD TEACHER Office Visit [facility] at [facility] [employer] [place] [address] [place] [address] Ashli Yusuf, ANP [address] [place] [address] documented as of this encounter Visit Diagnoses Diagnosis Bilateral tinnitus- Primary Bilateral hearing loss, unspecified hearing loss type documented in this encounter Care Teams Color Print Inspector Relationship Specialty Start Date End Date Jaya Ramos MD PCP - General Family Practice 06/15/19 12/06/21 documented as of this encounter
--- OUTSIDE RECORDS SUMMARY | 2024-08-19 03:22 | XMS_ITS | Encounter Summary ---
Author Organization [facility] Address [address] [place] [address] Care Team Providers Care Breast Splitter Name Role Phone Jaya Ramos MD Primary Care Provider Unava ilable Reason for Visit * Reason Comments Labs Only wants PSA done Sleep Problem Would like to get a new CPAP Encounter Details Date Type Department Care Team (Late st Contact Info) Description 06/08/2021 11:00 AM CDT Office Visit [facility] at Work [employer] [place] [address] [place] [phone] Neela Negro, SYSTEMS ADMINISTRATOR [address] [place] [address] Family history of prostate cancer in father (Primary Dx); Elevated blood sugar level; WALI (obstructive sleep apnea) Social History Tobacco [...] AM CDT documented as of this encounter Last Filed Vital Signs Vital Sign Reading Time Taken Comments Blood Pressure 148/86 06/08/2021 10:53 AM CDT Pulse 80 06/08/2021 10:53 AM CDT Temperature 37.6 ??C (99.7 ??F) 06/08/2021 10:53 AM C DT Respiratory Rate 20 06/08/2021 10:53 AM CDT Oxygen Saturation 95% 06/08/2021 10:53 AM CDT Inhaled Oxygen Concentration - - Weight 120.7 kg (266 lb) 06/08/2021 10:53 AM CDT Height 172.7 cm (5' 8 ) 06/08/2021 10:53 AM CDT Body Mass Index 40.45 06/08/2021 10:53 AM CDT documented in this encounter Progress Notes * Neela Negro, SYSTEMS ADMINISTRATOR - 06/08/2021 11:07 AM CDT HISTORY OF PRESENT ILLNESS Krish Leyva, a 60 y.o. male presents with a Chief Complaint of Labs Only (wants PSA done) and Sleep Problem (Would like to get a new CPAP) Subjective Pt presents to clinic today to have PSA checked. Pt does have family h/o prostate CA in his father.Pt denies new urinary symptoms. Pt has h/o WALI as well and needs a new machine as his current one is 17 years old. Pt uses CPAP machine every night and tolerates well. He requests script for this today. It is noted that pt's BP is elevated at this visit. Pt states that he has a home machine and that his BP is not elevated when he checks it at home. Advised pt today to notify clinic for persistent elevated readings at home. Pt currently exercises 4 days per week during his lunch break. REVIEW OF SYSTEMS Review of Systems Constitutional: Negative. HENT: Negative. Respiratory: Negative. Cardiovascular: Negative. Gastrointestinal: Negative. Genitourinary: Negative. Negative for decreased urine volume, difficulty urinating, dysuria, enuresis, frequency, hematuria and urgency. Musculoskeletal: Negative. Skin: Negative. Neurological: Negative. All other systems reviewed and are negative. Objective PHYSICAL EXAM BP (!) 148/86 (BP Location: Left arm, Patient Position (BP): Sitting, BP Cuff Size: Large Adult) Pulse 80 Temp 99.7 ??F (37.6 ??C) (Tympanic) Resp 20 Ht 5' 8 (1.727 m) Wt 120.7 kg (266 lb) SpO2 95% BMI 40.45 kg/m?? Physical Exam Vitals and nursing note reviewed. Constitutional: Appearance: Normal appearance. HENT: Head: Normocephalic. Eyes: Extraocular Movements: Extraocular movements intact. Conjunctiva/sclera: Conjunctivae normal. Cardiovascular: Rate and Rhythm: Normal rate and regular rhythm. Pulses: Normal pulses. Heart sounds: Normal heart sounds. Pulmonary: Effort: Pulmonary effort is normal. Breath sounds: Normal breath sounds. Abdominal: General: Bowel sounds are normal. Palpations: Abdomen is soft. Musculoskeletal: General: Normal range of motion. Cervical back: Normal range of motion. Skin: General: Skin is warm and dry. Neurological: General: No focal deficit present. Mental Status: He is alert and oriented to person, place, and time. Psychiatric: Mood and Affect: Mood normal. Behavior: Behavior normal. Procedures N/A Assessment ASSESSMENT and PLAN: ICD-10-CM ICD-9-CM 1. Family history of prostate cancer in father Z80.42 V16.42 CBC WITH DIFFERENTIAL COMPREHENSIVE METABOLIC PANEL LIPID PANEL TSH PSA 2. Elevated blood sugar level R73.9 790.29 HEMOGLOBIN A1C 3. WALI (obstructive sleep apnea) G47.33 327.23 LIAN TECHNICIAN documented in this encounter Miscellaneous Notes * Result Encounter Note - Neela Negro NP - 06/09/2021 11:33 AM CDT All labs look good, including prostate level. Please repeat in 1 year. documented in this encounter Plan of Treatment Upcoming Encounters Date Type Department Care Team (Late st Contact Info) Description 10/08/2024 1:30 PM CIVILIAN TECHNICIAN Office Visit [facility] [employer] [place] [address] [place] [address] Ashli Yusuf, ANP [address] [facility] [address] [place] [address] documented as of this encounter Procedures Procedure Name Priority Date/Time Associated Diagnosis Comments CBC WITH DIFFERENTIAL Routine 06/08/2021 11:15 AM CDT Family history of prostate cancer in father TSH Routine 06/08/2021 11:15 AM CDT Family history of prostate cancer in father PSA Routine 06/08/2021 11:15 AM CDT Family history of prostate cancer in father HEMOGLOBIN A1C Routine 06/08/2021 11:15 AM CDT Elevated blood sugar level LIPID PANEL Routine 06/08/2021 11:15 AM CDT Family history of prostate cancer in father COMPREHENSIVE METABOLIC PANEL Routine 06/08/2021 11:15 AM CDT Family history of prostate cancer in father documented in this encounter Results * HEMOGLOBIN A1C (06/08/2021 11:15 AM CDT) HEMOGLOBIN A1C 5.3 <5.7 % of total Hgb [facility] Comment: For the purpose of screening for the presence of diabetes: <5.7% ? Consistent with the absence of diabetes 5.7-6.4% ?Consistent with increased risk for diabetes ?(prediabetes) > or =6.5% ??Consistent with diabetes This assay result is consistent with a decreased risk of diabetes. Currently, no consensus exists regarding use of hemoglobin A1c for diagnosis of diabetes in children. According to [place] Diabetes Association (ADA) guidelines, hemoglobin A1c <7.0% represents optimal control in non- diabetic patients. Different metrics may apply to specific patient populations. Standards of Medical Care in Diabetes(ADA). ?? Test Performed at: [employer] [address] [place] ??[phone] Newton Valdez D.O., MPH Blood 06/08/2021 11:1 5 AM CDT 06/09/2021 4:32 AM CDT Neela Negro NP CHEMISTRY ORDERABL ES Performing Organization Address [facility] Co de Phone Number [facility] [address] [place] [address] * PSA (06/08/2021 11:15 AM CDT) PSA 0.69 < OR = 4.00 ng/mL [facility] Comment: The total PSA value from this assay system is standardized against the WHO standard. The test result will be approximately 20% lower when compared to the equimolar-standardized total PSA (Osito Nanda). Comparison of serial PSA results should be interpreted with this fact in mind. This test was performed using the Siemens chemiluminescent method. Values obtained from different assay methods cannot be used interchangeably. PSA levels, regardless of value, should not be interpreted as absolute evidence of the presence or absence of disease. Test Performed at: [facility] [facility] [address] [place] [address] ??[phone] Newton Valdez D.O., MPH Blood 06/08/2021 11:1 5 AM CDT 06/09/2021 4:31 AM CDT Neela Negro NP CHEMISTRY ORDERABL ES Performing Organization Address [facility] de Phone Number [facility] [address] [place] [address] * TSH (06/08/2021 11:15 AM CDT) TSH 1.41 0.40 - 4.50 mIU/L [facility] Comment: Test Performed at: [employer] [address] [place] [address] ??[phone] Newton Valdez D.O., MPH Blood 06/08/2021 11:1 5 AM CDT 06/09/2021 4:31 AM CDT Neela Negro NP CHEMISTRY ORDERABL ES Performing Organization Address [facility] Co de Phone Number [facility] [address] [place] [address] * LIPID PANEL (06/08/2021 11:15 AM CDT) CHOLESTEROL 155 <200 mg/dL [facility] HDL 56 > OR = 40 mg/dL [facility] TRIGLYCERIDE 90 <150 mg/dL [facility] LDL CALCULATED 82 mg/dL (calc) [facility] Comment: Reference range: <100 Desirable range <100 mg/dL for primary prevention; ?? <70 mg/dL for patients with CHD or diabetic patients with > or = 2 CHD risk factors. LDL-C is now calculated using the Jeremy calculation, which is a validated novel method providing better accuracy than the Friedewald equation in the estimation of LDL-C. Abhi QUIROZ et al. RITA. 2013;310(19): 6576-2209 (http://education.Cariloop/faq/DDO460) CHOL/HDL RATIO 2.8 <5.0 (calc) [facility] TOTAL NON-HDL CHOL(LDL+VLDL) 99 <130 mg/dL (calc) [facility] Comment: For patients with diabetes plus 1 major ASCVD risk factor, treating to a non-HDL-C goal of <100 mg/dL (LDL-C of <70 mg/dL) is considered a therapeutic option. Test Performed at: [employer] [id number] [place] [address] ??[phone] Newton Valdez D.O., MPH Blood 06/08/2021 11:1 5 AM CDT 06/09/2021 4:31 AM CDT Neela Negro NP CHEMISTRY ORDERABL ES [facility] [address] [place] [address] * (ABNORMAL) COMPREHENSIVE METABOLIC PANEL (06/08/2021 11:15 AM CDT) GLUCOSE 109(H) 65 - 99 mg/dL [facility] Comment: ? Fasting reference interval For someone without known diabetes, a glucose value between 100 and 125 mg/dL is consistent with prediabetes and should be confirmed with a follow-up test. BUN 26(H) 7 - 25 mg/dL [facility] CREATININE 0.92 0.70 - 1.25 mg/dL [facility] Comment: For patients >49 years of age, the reference limit for Creatinine is approximately 13% higher for people identified as -[place]. GFR 89 > OR = 60 mL/min/1.7 3m2 [facility] GFR, 103 > OR = 60 mL/min/1.7 3m2 [facility] BUN/CREAT RATIO 28(H) 6 - 22 (calc) [facility] SODIUM 145 135 - 146 mmol/L [facility] POTASSIUM 4.7 3.5 - 5.3 mmol/L [facility] CHLORIDE 111(H) 98 - 110 mmol/L [facility] CO2 23 20 - 32 mmol/L [facility] CALCIUM 9.4 8.6 - 10.3 mg/dL [facility] TOTAL PROTEIN 6.6 6.1 - 8.1 g/dL [facility] ALBUMIN 4.1 3.6 - 5.1 g/dL [facility] GLOBULIN 2.5 1.9 - 3.7 g/dL (calc) [facility] ALBUMIN/GLOBULIN RATIO 1.6 1.0 - 2.5 (calc) [facility] BILIRUBIN TOTAL 0.3 0.2 - 1.2 mg/dL [facility] ALKALINE PHOSPHATASE 50 35 - 144 U/L [facility] AST 18 10 - 35 U/L [facility] ALT 20 9 - 46 U/L [facility] Comment: Test Performed at: [employer] ??[phone] Newton Valdez D.O., MPH Blood 06/08/2021 11:1 5 AM CDT 06/09/2021 4:31 AM CDT Neela Negro NP CHEMISTRY ORDERABL ES [facility] [address] [place] [address] * CBC WITH DIFFERENTIAL (06/08/2021 11:15 AM CDT) WBC 5.8 3.8 - 10.8 Thousand/u L [facility] RBC 4.58 4.20 - 5.80 Million/uL [facility] HEMOGLOBIN 15.1 13.2 - 17.1 g/dL [facility] HEMATOCRIT 44.0 38.5 - 50.0 % [facility] MCV 96.1 80.0 - 100.0 fL [facility] MCH 33.0 27.0 - 33.0 pg [facility] MCHC 34.3 32.0 - 36.0 g/dL [facility] RDW 13.3 11.0 - 15.0 % [facility] PLATELETS 190 140 - 400 Thousand/u L [facility] MPV 11.8 7.5 - 12.5 fL [facility] NEUTROPHIL ABSOLUTE 3,590 1,500 - 7,800 cells/uL [facility] LYMPHOCYTE ABSOLUTE 1,462 850 - 3,900 cells/uL [facility] MONOCYTE ABSOLUTE 557 200 - 950 cells/uL [facility] EOSINOPHIL ABSOLUTE 151 15 - 500 cells/uL [facility] BASOPHILS ABSOLUTE 41 0 - 200 cells/uL [facility] NEUTROPHIL 61.9 % [facility] LYMPHOCYTES 25.2 % [facility] MONOCYTE 9.6 % [facility] EOSINOPHILS 2.6 % [facility] BASOPHILS 0.7 % [facility] Comment: Test Performed at: [employer] [address] [place] ??[phone] Newton Valdez D.O., MPH Blood 06/08/2021 11:1 5 AM CDT 06/09/2021 4:31 AM CDT Neela Negro SYSTEMS ADMINISTRATOR HEMATOLOGY ORDERAB LES [facility] [address] [place] [address] documented in this encounter Visit Diagnoses Diagnosis Family history of prostate cancer in father- Primary Elevated blood sugar level Other abnormal glucose WALI (obstructive sleep apnea) Obstructive sleep apnea (adult) (pediatric) documented in this encounter Care Teams Breast Splitter Relationship Specialty Start Date End Date Jaya Ramos MD PCP - General Family Practice 06/15/19 12/06/21 documented as of this encounter
--- OUTSIDE RECORDS SUMMARY | 2024-08-19 03:22 | XMS_ITS | Encounter Summary ---
Author Organization [facility] Address [address] Attn: [place] [address] Care Team Providers Care Physicians And Surgeons Name Role Phone Jaya Ramos MD Primary Care Provider Unava ilable Encounter Details Date Type Department Care Team (Latest Contact Info) Description 07/04/2020 Travel Social History Tobacco Use Types Packs/Day [...] have Coronavirus / COVID-19? No / Unsure 07/04/2020 7:17 AM REGIONAL LIAISON documented as of this encounter Plan of Treatment Upcoming Encounters Date Type Department Care Team (Late st Contact Info) Description 10/08/2024 1:30 PM REGIONAL LIAISON Office Visit [facility] at Work [employer] [place] [address] [place] [address] Ashli Yusuf, ANP [address] [facility] [address] [employer] [address] [place] [address] documented as of this encounter Visit Diagnoses Not on filedocumented in this encounter Care Teams Physicians And Surgeons Relationship Specialty Start Date End Date Jaya Ramos MD PCP - General Family Practice 06/15/19 12/06/21 documented as of this encounter
--- OUTSIDE RECORDS SUMMARY | 2024-08-19 03:22 | XMS_ITS | Encounter Summary ---
Author Organization [facility] Address [address] [place] [address] Care Team Providers Care Gas Blender Name Role Phone Neela Negro NP Primary Care Provider [phone] Reason for Visit * Reason Comments Immunization/Injection Encounter Details Date Type Department Care Team (Late Contact Info) Description 06/15/2018 3:20 PM CDT Immunization [facility] [employer] [address] [place] [address] Need for immunization against influenza (Primary Dx) Social History Tobacco Use Types Packs/Day Years Used Date Smoking Tobacco: Former Cigarettes Q uit: 03/02/1998 Smokeless Tobacco: Never Alcohol Use Standard Drinks/Week Comments Yes 0 (1 standard drink = 0.6 oz pur e alcohol) weekends Sex and Gender Information Value Date Recorded Sex Assigned at Not on file Gender Identity Not on file Sexual Orientation Not on file documented as of this encounter Progress Notes * Rose Marie Bonds - 06/15/2018 3:32 PM CDT Flu shot given IM in the right deltoid. Pt tolerated all. documented in this encounter Plan of Treatment Upcoming Encounters Date Type Department Care Team (Late Contact Info) Description 10/08/2024 1:30 PM HOUSE REPAIRER Office Visit [facility] [address] [place] [address] Ashli Yusuf, ANP [address] [address] [place] [address] documented as of this encounter Visit Diagnoses Diagnosis Need for immunization against influenza- Primary Need for prophylactic vaccination and inoculation against influenza documented in this encounter Care Teams Gas Blender Relationship Specialty Start Date End Date Neela Negro NP PCP - General NURSE PRACTITIONER 08/31/17 06/14/19 documented as of this encounter
--- OUTSIDE RECORDS SUMMARY | 2024-08-19 03:22 | XMS_ITS | Encounter Summary ---
Author Organization [facility] Address [address] [place] [address] Care Team Providers Care Baker Bread Name Role Phone Jaya Ramos MD Primary Care Provider Unava ilable Reason for Visit * Reason Comments Labs Only Encounter Details Date Type Department Care Team (Latest Contact Info) Description 06/27/2020 7:15 AM CDT Procedure visit [facility] [employer] [place] [address] [place] [address] Screening for condition (Primary Dx) [...] have Coronavirus / COVID-19? No / Unsure 06/13/2020 3:16 PM CDT documented as of this encounter Progress Notes * Wilfredo Healy - 06/27/2020 7:44 AM CDT PT PRESENTS W BLOOD DRAW . RIGHT STICK .TOLERATED WELL documented in this encounter Plan of Treatment Upcoming Encounters Date Type Department Care Team (Late st Contact Info) Description 10/08/2024 1:30 PM HAND ALTERATIONS SEAMSTRESS Office Visit [facility] at Work [employer] [address] [place] [address] Ashli Yusuf, ANP [address] [place] [address] documented as of this encounter Procedures Procedure Name Priority Date/Time Associated Diagnosis Comments PSA Routine 06/27/2020 7:46 AM CDT Screening for condition LIPID PANEL Routine 06/27/2020 7:46 AM CDT Screening for condition COMPREHENSIVE METABOLIC PANEL Routine 06/27/2020 7:46 AM CDT Screening for condition documented in this encounter Results * (ABNORMAL) COMPREHENSIVE METABOLIC PANEL (06/27/2020 7:46 AM CDT) GLUCOSE 113(H) 65 - 99 mg/dL [facility] BUN 23 8 - 27 mg/dL [facility] CREATININE 1.03 0.76 - 1.27 mg/dL [facility] GFR 78 >59 mL/min/1.7 3 [facility] GFR, 90 >59 mL/min/1.7 3 [facility] BUN/CREAT RATIO 22 10 - 24 [facility] SODIUM 143 134 - 144 mmol/L [facility] POTASSIUM 4.9 3.5 - 5.2 mmol/L [facility] CHLORIDE 107(H) 96 - 106 mmol/L [facility] CO2 22 20 - 29 mmol/L [facility] CALCIUM 9.3 8.6 - 10.2 mg/dL [facility] TOTAL PROTEIN 7.1 6.0 - 8.5 g/dL [facility] ALBUMIN 4.5 3.8 - 4.8 g/dL [facility] GLOBULIN 2.6 1.5 - 4.5 g/dL [facility] ALBUMIN/GLOBULIN RATIO 1.7 1.2 - 2.2 [facility] BILIRUBIN TOTAL 0.4 0.0 - 1.2 mg/dL [facility] ALKALINE PHOSPHATASE 60 39 - 117 IU/L [facility] AST 28 0 - 40 IU/L [facility] ALT 37 0 - 44 IU/L [facility] Blood 06/27/2020 7:46 AM CDT 06/27/2020 Narrative [facility] - 06/28/2020 5:36 AM CDT Performed at: ??01 - [facility] [address] ??[id number] Combined Rail Operator: Andreas Garcia PhD, Phone: ??[phone] Mallorie Sheth NP CHEMISTRY ORDER KACEY Performing Organization Address [facility] Co de Phone Number [facility] [phone] * LIPID PANEL (06/27/2020 7:46 AM CDT) CHOLESTEROL 150 100 - 199 mg/dL [facility] TRIGLYCERIDE 49 0 - 149 mg/dL [facility] HDL 53 >39 mg/dL [facility] VLDL CHOLESTEROL CALCULATED 11 5 - 40 mg/dL [facility] LDL CALCULATED 86 0 - 99 mg/dL [facility] Blood 06/27/2020 7:46 AM CDT 06/27/2020 Narrative [facility] - 06/28/2020 5:36 AM CDT Performed at: ?? - [facility] [address] ??[id number] Combined Rail Operator: Andreas Garcia PhD, Phone: ??[phone] Mallorie Sheth NP CHEMISTRY ORDER KACEY Performing Organization Address City/[facility]/ZIP Co de Phone Number [facility] [phone] * PSA (06/27/2020 7:46 AM CDT) PSA 0.6 0.0 - 4.0 ng/mL [facility] Comment: Asim ECLIA methodology. According to the [place] [employer], Serum PSA should decrease and remain at undetectable levels after radical prostatectomy. The AUA defines biochemical recurrence as an initial PSA value 0.2 ng/mL or greater followed by a subsequent confirmatory PSA value 0.2 ng/mL or greater. Values obtained with different assay methods or kits cannot be used interchangeably. Results cannot be interpreted as absolute evidence of the presence or absence of malignant disease. Blood 06/27/2020 7:46 AM CDT 06/27/2020 Narrative [facility] - 06/28/2020 5:36 AM CDT Performed at: ??01 - [facility] [address] ??[id number] Combined Rail Operator: Andreas Garcia PhD, Phone: ??[phone] Mallorie Sheth WRITER [employer] CHEMISTRY ORDER KACEY [facility] [phone] documented in this encounter Visit Diagnoses Diagnosis Screening for condition- Primary Screening for unspecified condition documented in this encounter Care Teams Baker Bread Relationship Specialty Start Date End Date Jaya Ramos MD PCP - General Family Practice 06/15/19 12/06/21 documented as of this encounter
--- OUTSIDE RECORDS SUMMARY | 2024-08-19 03:22 | XMS_ITS | Encounter Summary ---
Author Organization [facility] Address [address] [place] [address] Care Team Providers Care Director Of Knowledge Management Name Role Phone Jaya Ramos MD Primary Care Provider Unava ilable Reason for Visit * Reason Comments Immunization/Injection Encounter Details Date Type Department Care Team (Late st Contact Info) Description 06/03/2021 2:00 PM CDT Immunization [facility] [employer] [place] [address] [place] [address] Need for influenza vaccination (Primary Dx) Social History Tobacco Use Types [...] as of this encounter Progress Notes * Monica Hobbs - 06/04/2021 1:38 PM CDT Pt received flu shot in left deltoid, pt tolerated well. Given by Callie. documented in this encounter Plan of Treatment Upcoming Encounters Date Type Department Care Team (Late Contact Info) Description 10/08/2024 1:[address] RIDER Office Visit [facility] [employer] [place] [address] [place] [address] Ashli Yusuf, ANP [address] [facility] [address] [place] [address] documented as of this encounter Visit Diagnoses Diagnosis Need for influenza vaccination- Primary Need for prophylactic vaccination and inoculation against influenza documented in this encounter Care Teams Director Of Knowledge Management Relationship Specialty Start Date End Date Jaya Ramos MD PCP - General Family Practice 06/15/19 12/06/21 documented as of this encounter
--- OUTSIDE RECORDS SUMMARY | 2024-08-19 03:22 | XMS_ITS | Encounter Summary ---
Author Organization [facility] Address [address] [place] [address] Care Team Providers Care Poultry Field Service Technician Name Role Phone Jaya Ramos MD Primary Care Provider Unava ilable Reason for Visit * Reason Comments Physical Encounter Details Date Type Department Care Team (Late st Contact Info) Description 06/13/2020 3:30 PM CDT Office Visit [facility] [address] [place] [address] [place] [phone] Mallorie Sheth, BASS GUITAR TEACHER [address] [facility] [address] [place] [address] Obesity (BMI 35.0-39.9 without comorbidity) (Primary Dx); Screening for condition; Uses continuous positive airway pressure (CPAP) ventilation at home Social History Tobacco Use Types Packs/Day Years [...] PM CDT documented as of this encounter Last Filed Vital Signs Vital Sign Reading Time Taken Comments Blood Pressure 144/82 06/13/2020 3:35 PM CDT Pulse 80 06/13/2020 3:22 PM CDT Temperature - - Respiratory Rate 16 06/13/2020 3:22 PM CDT Oxygen Saturation 97% 06/13/2020 3:22 PM CDT Inhaled Oxygen Concentration - - Weight 118.8 kg (262 lb) 06/13/2020 3:22 PM CDT Height 172.7 cm (5' 8 ) 06/13/2020 3:22 PM CDT Body Mass Index 39.84 06/13/2020 3:22 PM CDT documented in this encounter Progress Notes * Mallorie Sheth, BASS GUITAR TEACHER - 06/13/2020 3:31 PM CDT HISTORY OF PRESENT ILLNESS Krish Leyva is a 59 y.o. male who presents for Chief Complaint Patient presents with ??? Physical Takes OTC Luciano Ramesh. Sees PCP Dr Leonard. Here for lab orders. Discussed colonoscopy, despite family hx would like to put it off for a few months. He is past due for colonoscopy follow up due to family hx. Denies black or bloody stools, no change in bowel patterns. Exercises daily with push ups, stretching, walking. Denies chest pain, SOB. Past Medical History: Diagnosis Date ??? Arthritis some but excercise helps ??? History of chicken pox ??? Measles ??? Mumps ??? Sleep apnea No current outpatient medications on file. No current facility-administered medications for this visit. No Known Allergies BP (!) 144/82 Pulse 80 Resp 16 Ht 5' 8 (1.727 m) Wt 118.8 kg (262 lb) SpO2 97% BMI 39.84 kg/m?? MEDICAL RECORD UPDATE Past Medical History: Diagnosis Date ??? Arthritis some but excercise helps ??? History of chicken pox ??? Measles ??? Mumps ??? Sleep apnea Past Surgical History: Procedure Laterality Date ??? HX SEPTOPLASTY 1983 ??? HX SURGICAL OTHER 2013 bone spur removal ??? PT DENIES RELEVANT SURGICAL HISTORY 7 years [...] reviewed and updated in computerized patient record. [id number] - [facility] [address] [facility] Care Providers: Patient Care Team: Jaya Ramos MD as PCP - General (Family Practice) No Patient Care Coordination Note on file. Vital signs/Tobacco use BP (!) 144/82 Pulse 80 Resp 16 Ht 5' 8 (1.727 m) Wt 118.8 kg (262 lb) SpO2 97% BMI 39.84 kg/m?? Blood Pressure BP Readings from Last 3 Encounters: 06/13/20 (!) 144/82 07/24/19 (!) 142/84 06/15/19 126/82 BMI POC (QM) Body mass index is 39.84 kg/m??. Normal BMI range: 18 & older: > or = 18.5 and < 25 Abnormal high BMI: Patient counseled on lifestyle modifications including weight loss and daily exercise. The 10-year CVD risk score (D'Agostino, et al., 2008) is: 12.1% Values used to calculate the score: Age: 59 years Sex: Male Diabetic: No Tobacco smoker: No Systolic Blood Pressure: 144 mmHg Is BP treated: No HDL Cholesterol: 49 mg/dL Total Cholesterol: 135 mg/dL Consider Statins if 10 year risk >7.5-10% Tobacco Use (QM) reports that he quit smoking about 22 years ago. His smoking use included cigarettes. He has a 20.00 pack-year smoking history. He has never used smokeless tobacco. He is not a tobacco user. EXAMINATION REVIEW OF SYSTEMS Review of Systems Constitutional: Negative for chills, fever and malaise/fatigue. Respiratory: Negative for cough. Cardiovascular: Negative for chest pain, palpitations and leg swelling. Gastrointestinal: Negative for abdominal pain, blood in stool, constipation, diarrhea, melena, nausea and vomiting. Genitourinary: Negative for dysuria. Musculoskeletal: Positive for joint pain and myalgias. Knee pain intermittently, supplements help relieve pain Neurological: Negative for dizziness and headaches. Psychiatric/Behavioral: Negative for depression. The patient is not nervous/anxious. Objective PHYSICAL EXAM Physical Exam Constitutional: Appearance: He is well-developed. HENT: Head: Normocephalic and atraumatic. Right Ear: Tympanic membrane and ear canal normal. Left Ear: Tympanic membrane and ear canal normal. Nose: Nose normal. Eyes: Conjunctiva/sclera: Conjunctivae normal. Cardiovascular: Rate and Rhythm: Normal rate and regular rhythm. Heart sounds: Normal heart sounds, S1 normal and S2 normal. No murmur. No friction rub. No gallop. Pulmonary: Effort: Pulmonary effort is normal. No respiratory distress. Breath sounds: Normal breath sounds. No wheezing or rales. Abdominal: General: Abdomen is protuberant. Bowel sounds are normal. Palpations: Abdomen is soft. Tenderness: There is no abdominal tenderness. Musculoskeletal: Right lower leg: No edema. Left lower leg: No edema. Skin: General: Skin is warm and dry. Neurological: Mental Status: He is alert and oriented to person, place, and time. No results found for any visits on 06/13/20 (from the past 24 hour(s)). ASSESSMENT and PLAN: Krish was seen today for physical. Diagnoses and all orders for this visit: Obesity (BMI 35.0-39.9 without comorbidity) Screening for condition - CBC WITH DIFFERENTIAL; Future - COMPREHENSIVE METABOLIC PANEL; Future - LIPID PANEL; Future - TSH; Future - PSA; Future Uses continuous positive airway pressure (CPAP) ventilation at home follow up for fasting labs. Enc to have colonoscopy, declines for orders. His former GI has retired. Discussed with pt healthy diet including adding fruits, vegetables to diet. Increase fiber in diet,whole grain cereals and bread. Lean meats, low saturated fat diet. Limit concentrated sweets, carbs. Aerobic exercise recommended 30 min a day for at least 5 days a week. Start with 3 days a week and work up to goal. Stop if any SOB, chest pain or dizziness. documented in this encounter Plan of Treatment Upcoming Encounters Date Type Department Care Team (Late st Contact Info) Description 10/08/2024 1:30 PM AUTOMATIC TRANSMISSION MECHANIC Office Visit [facility] [address] [place] [address] [facility] [place] [address] Ashli Yusuf, ANP [address] [place] [address] documented as of this encounter Results * PSA (06/20/2020 7:50 AM CDT) PSA CANCELED ng/mL [facility] Comment: Quantity was not sufficient for analysis. Asim ECLIA methodology. According to the [employer] [place] [employer], Serum PSA should decrease and [...] the presence or absence of malignant disease. Result canceled by the ancillary. Blood 06/20/2020 7:50 AM CDT 06/20/2020 Narrative [facility] - 06/21/2020 2:35 PM CDT Performed at: ??01 - [email or web address] ??[id number] Automotive Software Engineer: Andreas Garcia PhD, Phone: ??[phone] Mallorie Sheth NP CHEMISTRY ORDER KACEY [facility] [phone] * TSH (06/20/2020 7:50 AM CDT) TSH CANCELED uIU/mL [facility] Comment: Quantity was not sufficient for analysis. Result canceled by the ancillary. Blood 06/20/2020 7:50 AM CDT 06/20/2020 Narrative [facility] - 06/21/2020 2:35 PM CDT Performed at: ??01 - [facility] [address] ??[id number] Automotive Software Engineer: Andreas Garcia PhD, Phone: ??[phone] Mallorie Sheth BASS GUITAR TEACHER CHEMISTRY ORDER KACEY [facility] [phone] * LIPID PANEL (06/20/2020 7:50 AM CDT) CHOLESTEROL CANCELED mg/dL [facility] Comment: Quantity was not sufficient for analysis. Result canceled by the ancillary. TRIGLYCERIDE CANCELED [facility] Comment: Test not performed Result canceled by the ancillary. HDL CANCELED [facility] Comment: Test not performed Result canceled by the ancillary. VLDL CHOLESTEROL CALCULATED CANCELED mg/dL [facility] Comment: Unable to calculate result since non-numeric result obtained for component test. Result canceled by the ancillary. Blood 06/20/2020 7:50 AM CDT 06/20/2020 Narrative [facility] - 06/21/2020 2:35 PM CDT Performed at: ??01 - [facility] [address] ??[id number] Automotive Software Engineer: Andreas Garcia PhD, Phone: ??[phone] Mallorie Sheth BASS GUITAR TEACHER CHEMISTRY ORDER KACEY Performing Organization Address [facility] Co de Phone Number [facility] [phone] * COMPREHENSIVE METABOLIC PANEL (06/20/2020 7:50 AM CDT) GLUCOSE CANCELED mg/dL [facility] Comment: Quantity was not sufficient for analysis. Result canceled by the ancillary. BUN CANCELED [facility] Comment: Test not performed Result canceled by the ancillary. CREATININE CANCELED [facility] Comment: Test not performed Result canceled by the ancillary. SODIUM CANCELED [facility] Comment: Test not performed Result canceled by the ancillary. POTASSIUM CANCELED [facility] Comment: Test not performed Result canceled by the ancillary. CHLORIDE CANCELED [facility] Comment: Test not performed Result canceled by the ancillary. CO2 CANCELED [facility] Comment: Test not performed Result canceled by the ancillary. CALCIUM CANCELED [facility] Comment: Test not performed Result canceled by the ancillary. TOTAL PROTEIN CANCELED [facility] Comment: Test not performed Result canceled by the ancillary. ALBUMIN CANCELED [facility] Comment: Test not performed Result canceled by the ancillary. BILIRUBIN TOTAL CANCELED [facility] Comment: Test not performed Result canceled by the ancillary. ALKALINE PHOSPHATASE CANCELED [facility] Comment: Test not performed Result canceled by the ancillary. AST CANCELED [facility] Comment: Test not performed Result canceled by the ancillary. ALT CANCELED [facility] Comment: Test not performed Result canceled by the ancillary. Blood 06/20/2020 7:50 AM CDT 06/20/2020 Narrative [facility] - 06/21/2020 2:35 PM CDT Performed at: ??01 - [facility] [address] ??[id number] Automotive Software Engineer: Andreas Garcia PhD, Phone: ??[phone] Mallorie Sheth NP CHEMISTRY ORDER KACEY [facility] [phone] * (ABNORMAL) CBC WITH DIFFERENTIAL (06/20/2020 7:50 AM CDT) WBC 6.4 3.4 - 10.8 x10E3/uL [facility] RBC 4.67 4.14 - 5.80 x10E6/uL [facility] HEMOGLOBIN 15.5 13.0 - 17.7 g/dL [facility] HEMATOCRIT 45.2 37.5 - 51.0 % [facility] MCV 97 79 - 97 fL [facility] MCH 33.2(H) 26.6 - 33.0 pg [facility] MCHC 34.3 31.5 - 35.7 g/dL [facility] RDW 13.2 11.6 - 15.4 % [facility] PLATELETS 191 150 - 450 x10E3/uL [facility] NEUTROPHIL 62 Not Estab. % [facility] LYMPHOCYTES 26 Not Estab. % [facility] MONOCYTE 9 Not Estab. % [facility] EOSINOPHILS 2 Not Estab. % [facility] BASOPHILS 1 Not Estab. % [facility] NEUTROPHIL ABSOLUTE 4.0 1.4 - 7.0 x10E3/uL [facility] LYMPHOCYTE ABSOLUTE 1.6 0.7 - 3.1 x10E3/uL [facility] MONOCYTE ABSOLUTE 0.6 0.1 - 0.9 x10E3/uL [facility] EOSINOPHIL ABSOLUTE 0.1 0.0 - 0.4 x10E3/uL [facility] BASOPHILS ABSOLUTE 0.0 0.0 - 0.2 x10E3/uL [facility] IMMATURE GRANULOCYTES 0 Not Estab. % [facility] IMMATURE GRANULOCYTES ABSOLUTE 0.0 0.0 - 0.1 x10E3/uL [facility] Blood 06/20/2020 7:50 AM CDT 06/20/2020 Narrative [facility] - 06/21/2020 6:36 AM CDT Performed at: ??01 - [facility] [address] ??[id number] Automotive Software Engineer: Andreas Garcia PhD, Phone: ??[phone] Mallorie Sheth NP HEMATOLOGY TOYIN DELGADO [facility] [phone] documented in this encounter Visit Diagnoses Diagnosis Obesity (BMI 35.0-39.9 without comorbidity)- Primary Obesity, unspecified Screening for condition Screening for unspecified condition Uses continuous positive airway pressure (CPAP) ventilation at home Screening for condition- Primary Screening for unspecified condition documented in this encounter Care Teams Poultry Field Service Technician Relationship Specialty Start Date End Date Jaya Ramos MD PCP - General Family Practice 06/15/19 12/06/21 documented as of this encounter
--- OUTSIDE RECORDS SUMMARY | 2024-08-19 03:22 | XMS_ITS | Encounter Summary ---
Author Organization [facility] Address [address] [place] [address] Care Team Providers Care Saddle And Side Wire Stitcher Name Role Phone Neela Negro NP Primary Care Provider [phone] Reason for Visit * Reason Comments Labs Only Encounter Details Date Type Department Care Team ([facility] st Contact Info) Description 04/06/2019 7:30 AM CDT Office Visit [facility] [employer] [address] [place] [address] Screening for condition (Primary Dx) Social History [...] Sign Reading Time Taken Comments Blood Pressure 138/88 04/06/2019 7:33 AM CDT Pulse - - Temperature - - Respiratory Rate - - Oxygen Saturation - - Inhaled Oxygen Concentration - - Weight 112.5 kg (248 lb) 04/06/2019 7:33 AM CDT Height 172.7 cm (5' 8 ) 04/06/2019 7:33 AM CDT Body Mass Index 37.71 04/06/2019 7:33 AM CDT documented in this encounter Progress Notes * Rose Marie Bonds - 04/06/2019 8:38 AM CDT Annual wellness screening fingerstick. Right hand, 2nd digit. Pt tolerated well. DIANNA Pantoja documented in this encounter Plan of Treatment Upcoming Encounters Date Type Department Care Team (Late st Contact Info) Description 10/08/2024 1:30 PM LABORATORY OPERATIONS COORDINATOR Office Visit [facility] [employer] [place] [address] [facility] [facility] [facility] [place] [address] Ashli Yusuf, ANP [address] [place] [address] documented as of this encounter Procedures Procedure Name Priority Date/Time Associated Diagnosis Comments GLUCOSE FASTING Routine 04/06/2019 LIPID PANEL Routine 04/06/2019 documented in this encounter Results * (ABNORMAL) GLUCOSE FASTING (04/06/2019) GLUCOSE 102(A) 74 - 99 mg/dL [facility] Blood 04/06/2019 Abstract Provider CHEMISTRY ORDERABLES [facility] CLIA# [id number] [place] [address] * (ABNORMAL) LIPID PANEL (04/06/2019) CHOLESTEROL 135 200 mg/dL COUNT INCLUDES [facility] TRIGLYCERIDE 150 mg/dL [facility] Comment:<50 HDL 49 40 - 59 mg/dL [facility] LDL CALCULATED 100 mg/dL [facility] Comment:NA TC/HDL POC 2.8(A) 3.43 - 4.97 Ratio [facility] Blood 04/06/2019 Abstract Provider CHEMISTRY ORDERABLES T [facility] CLIA# [id number] [address] [place] [address] documented in this encounter Visit Diagnoses Diagnosis Screening for condition- Primary Screening for unspecified condition documented in this encounter Care Teams Saddle And Side Wire Stitcher Relationship Specialty Start Date End Date Neela Negro, PATEL PCP - General NURSE PRACTITIONER 08/31/17 06/14/19 documented as of this encounter
--- OUTSIDE RECORDS SUMMARY | 2024-08-19 03:22 | XMS_ITS | Encounter Summary ---
Author Organization [facility] Address [address] [place] [address] Care Team Providers Care Escalator Service Mechanic Name Role Phone Jaya Ramos MD Primary Care Provider Unava ilable Reason for Visit * Reason Onset Date Comments Needs Orders Written 01/16/2021 Encounter Details Date Type Department Care Team (Late st Contact Info) Description 01/16/2021 Telephone [facility] [employer] [place] [address] [address] Jaya Ramos MD NO ADDRESS ON FILE Needs Orders Written Social History Tobacco Use Types Packs/Day Years [...] encounter Miscellaneous Notes * Telephone Encounter - Rose Marie Bonds RN - 01/16/2021 9:29 AM CDT While here for his wellness screening pt stated he needs a new mask for his CPAP machine. Pt unaware what type of mask he uses but stated he gets supplies from [facility]. I spoke to Heather at [facility] states pt needs a while new order for insurance purposes a new order is needed annually. Heather states pt uses the air fit N-10 wide cushion, wide mask, and head gear. A new supply order was put in and faxed to [employer] at [phone] documented in this encounter Plan of Treatment Upcoming Encounters Date Type Department Care Team (Late st Contact Info) Description 10/08/2024 1:30 PM FURNACE CHECKER Office Visit [facility] [employer] [place] [address] [place] [address] Ashli Yusuf, ANP [address] [facility] [address] [facility] [address] [place] [address] documented as of this encounter Visit Diagnoses Not on filedocumented in this encounter Care Teams Escalator Service Mechanic Relationship Specialty Start Date End Date Jaya Ramos MD PCP - General Family Practice 06/15/19 12/06/21 documented as of this encounter
--- OUTSIDE RECORDS SUMMARY | 2024-08-19 03:22 | XMS_ITS | Encounter Summary ---
Author Organization [facility] Address [address] [place] [address] Care Team Providers Care Emergency Medical Service Coordinator Name Role Phone Jaya Ramos MD Primary Care Provider Unacarlene ilable Reason for Visit * Reason Comments Labs Only Encounter Details Date Type Department Care Team (Latest Contact Info) Description 01/16/2021 8:30 AM CDT Clinical Support [facility] [employer] [place] [address] [place] [phone] Screening for condition (Primary Dx) Social History [...] Sign Reading Time Taken Comments Blood Pressure 130/98 01/16/2021 8:35 AM CDT Pulse - - Temperature - - Respiratory Rate - - Oxygen Saturation - - Inhaled Oxygen Concentration - - Weight 118.8 kg (262 lb) 01/16/2021 8:35 AM CDT Height 172.7 cm (5' 8 ) 01/16/2021 8:35 AM CDT Body Mass Index 39.84 01/16/2021 8:35 AM CDT documented in this encounter Progress Notes * Rose Marie oBnds, DIANNA - 01/16/2021 8:52 AM CDT Annual wellness screening fingerstick. Right hand, 3rd digit. Pt tolerated well. Spoke to pt regarding elevated blood glucose. Recommended repeat labs. Pt states his blood sugar is always elevated. Kit, RN documented in this encounter Plan of Treatment Upcoming Encounters Date Type Department Care Team (Late st Contact Info) Description 10/08/2024 1:30 PM ACCOUNTS PAYABLE CLERK Office Visit [facility] [employer] [place] [address] [facility] [place] [address] Ashli Yusuf, ANP [address] [facility] [address] [facility] [address] [place] [address] documented as of this encounter Procedures Procedure Name Priority Date/Time Associated Diagnosis Comments POC LIPID PANEL AND GLUCOSE Routine 01/16/2021 8:53 AM CDT documented in this encounter Results * (ABNORMAL) POC LIPID PANEL AND GLUCOSE (01/16/2021 8:53 AM CDT) CHOLESTEROL 120 200 mg/dL [facility] HDL 47 40 - 59 mg/dL [facility] LDL CALCULATED 63 100 mg/dL [facility] TRIGLYCERIDE 52 150 mg/dL [facility] NON-HDL CHOLESTEROL 0 130 mg/dL [facility] CHOL/HDL RATIO 2.6 [facility] GLUCOSE POC 116(A) 74 - 99 mg/dL [facility] Blood 01/16/2021 8:53 AM CDT Abstract Provider POINT OF CARE TESTIN G COM [facility] CLIA# [id number] [address] [address] documented in this encounter Visit Diagnoses Diagnosis Screening for condition- Primary Screening for unspecified condition documented in this encounter Care Teams Emergency Medical Service Coordinator Relationship Specialty Start Date End Date Jaya Ramos MD PCP - General Family Practice 06/15/19 12/06/21 documented as of this encounter
--- OUTSIDE RECORDS SUMMARY | 2024-08-19 03:22 | XMS_ITS | Encounter Summary ---
Author Organization [facility] Address [address] [place] [address] Care Team Providers Care It Programmer Name Role Phone Jaya Ramos MD Primary Care Provider Unava ilable Reason for Visit * Reason Comments Labs Only Encounter Details Date Type Department Care Team (Latest Contact Info) Description 06/20/2020 7:15 AM CDT Procedure visit [facility] [employer] [place] [address] [place] [address] Screening for condition (Primary Dx) Social History [...] Progress Notes * Rose Marie Bonds - 06/20/2020 7:25 AM CDT Pt presents for lab draw. Left AC successful 1 stick. Pt tolerated well. documented in this encounter Plan of Treatment Upcoming Encounters Date Type Department Care Team (Late st Contact Info) Description 10/08/2024 1:30 PM RETAIL ROUTE SUPERVISOR Office Visit [facility] at Work [employer] [address] [place] [address] Ashli Yusuf, ANP [address] [place] [address] documented as of this encounter Procedures Procedure Name Priority Date/Time Associated Diagnosis Comments HCV AB INTERPRETATION Routine 06/20/2020 7:50 AM CDT ACUTE HEPATITIS PANEL Routine 06/20/2020 7:50 AM CDT Screening for condition CBC WITH DIFFERENTIAL Routine 06/20/2020 7:50 AM CDT Screening for condition TSH Routine 06/20/2020 7:50 AM CDT Screening for condition PSA Routine 06/20/2020 7:50 AM CDT Screening for condition LIPID PANEL Routine 06/20/2020 7:50 AM CDT Screening for condition COMPREHENSIVE METABOLIC PANEL Routine 06/20/2020 7:50 AM CDT Screening for condition documented in this encounter Results * HCV AB INTERPRETATION (06/20/2020 7:50 AM CDT) HEPATITIS C AB INTERP Comment [facility] Comment: Negative Not infected with HCV, unless recent infection is suspected or other evidence exists to indicate HCV infection. 06/20/2020 7:50 AM CDT 06/20/2020 Narrative [facility] - 06/21/2020 7:36 AM CDT Performed at: ??01 - [facility] [address], [place], [place] ??[id number] Public Policy Analyst: Andreas Garcia PhD, Phone: ??[phone] Mallorie Candace Sheth SUCCESSFACTORS CONSULTANT CHEMISTRY ORDER KACEY [facility] [phone] * (ABNORMAL) CBC WITH DIFFERENTIAL (06/20/2020 7:50 [...] AM CDT Performed at: ??01 - [facility] [address] ??[id number] Public Policy Analyst: Andreas Garcia PhD, Phone: ??[phone] Mallorie Candace Sheth SUCCESSFACTORS CONSULTANT HEMATOLOGY TOYIN DELGADO [facility] [phone] * COMPREHENSIVE METABOLIC PANEL (06/20/2020 7:50 AM [...] 2:35 PM CDT Performed at: ??01 - [facility] ??[id number] Public Policy Analyst: Andreas Garcia PhD, Phone: ??[phone] Malloriemino Bryantjo ann Sheth SUCCESSFACTORS CONSULTANT CHEMISTRY ORDER KACEY Performing Organization Address City/[facility]/ZIP Co de Phone Number [facility] [phone] * LIPID PANEL (06/20/2020 7:50 AM CDT) [...] PM CDT Performed at: ??01 - [facility] [address] ??[id number] Public Policy Analyst: Andreas Garcia PhD, Phone: ??[phone] Mallorie Bryantjo ann Sheth SUCCESSFACTORS CONSULTANT CHEMISTRY ORDER KACEY Performing Organization Address [facility] de Phone Number [facility] [phone] * TSH (06/20/2020 7:50 AM CDT) Pathologist [facility] TSH CANCELED uIU/mL [facility] Comment: Quantity was not sufficient for analysis. Result canceled by the ancillary. Blood 06/20/2020 7:50 AM CDT 06/20/2020 Narrative [facility] - 06/21/2020 2:35 PM CDT Performed at: ?? - [facility] [address] ??[id number] Public Policy Analyst: Andreas Garcia PhD, Phone: ??[phone] Mallorie Sheth SUCCESSFACTORS CONSULTANT CHEMISTRY ORDER KACEY Performing Organization Address [facility]/ZIP Co de Phone Number [facility] [phone] * PSA (06/20/2020 7:50 AM CDT) PSA CANCELED ng/mL [facility] Comment: Quantity was not sufficient for analysis. Asim ECLIA methodology. According to the [place] [employer], Serum PSA should decrease and [...] 06/21/2020 2:35 PM CDT Performed at: ??[address] ??[id number] Public Policy Analyst: Andreas Garcia PhD, Phone: ??[phone] Mallorie Sheth NP CHEMISTRY ORDER KACEY Performing Organization Address [facility] Co de Phone Number [facility] [phone] * ACUTE HEPATITIS PANEL (06/20/2020 7:50 AM CDT) Pathologist [facility] HEPATITIS A IGM Negative Negative [facility] HEPATITIS B SURFACE AG Negative Negative [facility] HEPATITIS B CORE IGM Negative Negative [facility] HEPATITIS C AB <0.1 0.0 - 0.9 s/co ratio [facility] Blood 06/20/2020 7:50 AM CDT 06/20/2020 Narrative [facility] - 06/21/2020 7:36 AM CDT Performed at: ??[address] ??[id number] Public Policy Analyst: Andreas Garcia PhD, Phone: ??[phone] Mallorie Sheth SUCCESSFACTORS CONSULTANT CHEMISTRY ORDER KACEY [facility] [phone] documented in this encounter Visit Diagnoses Diagnosis Screening for condition- Primary Screening for unspecified condition documented in this encounter Care Teams It Programmer Relationship Specialty Start Date End Date Jaya Ramos MD PCP - General Family Practice 06/15/19 12/06/21 documented as of this encounter
--- OUTSIDE RECORDS SUMMARY | 2024-08-19 03:22 | XMS_ITS | Encounter Summary ---
Author Organization [facility] Address [address] [place] [address] Care Team Providers Care Life Insurance Agent Name Role Phone Jaya Ramos MD Primary Care Provider Unava ilable Reason for Visit * Reason Comments Labs Only Encounter Details Date Type Department Care Team (Latest Contact Info) Description 07/04/2020 7:15 AM PRESCRIPTION BENEFIT SPECIALIST Procedure visit [facility] at [facility] [employer] [place] [address] [place] [address] Elevated fasting glucose Social History Tobacco Use [...] COVID-19? No / Unsure 07/04/2020 7:17 AM PRESCRIPTION BENEFIT SPECIALIST documented as of this encounter Progress Notes * Monica Hobbs - 07/04/2020 7:23 AM CST Pt came in for blood draw, left AC successful, 1 stick pt tolerated well. Drawn by Ugo. CRIPTION BENEFIT SPECIALIST documented in this encounter Plan of Treatment Upcoming Encounters Date Type Department Care Team (Late st Contact Info) Description 10/08/2024 1:30 PM PRESCRIPTION BENEFIT SPECIALIST Office Visit [facility] at Work [employer] [place] [address] [facility] [address] [place] [address] Ashli Yusuf, ANP [address] [place] [address] documented as of this encounter Procedures Procedure Name Priority Date/Time Associated Diagnosis Comments HEMOGLOBIN A1C Routine 07/04/2020 7:24 AM PRESCRIPTION BENEFIT SPECIALIST Elevated fasting glucose documented in this encounter Results * HEMOGLOBIN A1C (07/04/2020 7:24 AM PRESCRIPTION BENEFIT SPECIALIST) HEMOGLOBIN A1C 5.5 4.8 - 5.6 % [facility] Comment: ? Prediabetes: 5.7 - 6.4 ? Diabetes: >6.4 ? Glycemic control for adults with diabetes: <7.0 Blood 07/04/2020 7:24 AM PRESCRIPTION BENEFIT SPECIALIST 07/04/2020 Narrative [facility] - 07/05/2020 4:35 AM PRESCRIPTION BENEFIT SPECIALIST Performed at: ??01 - [facility] [address] ??[id number] Health Analytics Consultant: Andreas Garcia PhD, Phone: ??[phone] Mallorie Sheth TEMPERATURE REGULATOR CHEMISTRY ORDER KACEY [facility] [phone] documented in this encounter Visit Diagnoses Diagnosis Elevated fasting glucose Impaired fasting glucose documented in this encounter Care Teams Life Insurance Agent Relationship Specialty Start Date End Date Jaya Ramos MD PCP - General Family Practice 06/15/19 12/06/21 documented as of this encounter
--- OUTSIDE RECORDS SUMMARY | 2024-08-19 03:22 | XMS_ITS | Encounter Summary ---
Author Organization [facility] Address [address] [place] [address] Care Team Providers Care Residential Supervisor Name Role Phone Jaya Ramos MD Primary Care Provider Amilcar alanis Encounter Details Date Type Department Care Team (Late Contact Info) Description 06/24/2020 Orders Only [facility] at [facility] [employer] [place] [address] [place] [address] Mallorie Sheth, PATEL [address] [facility] [address] [place] [address] Screening for condition (Primary Dx) Social History [...] PM CDT documented as of this encounter Plan of Treatment Upcoming Encounters Date Type Department Care Team (Late Contact Info) Description 10/08/2024 1:30 PM GLASS PROCESSING WORKER Office Visit [facility] at [facility] [employer] [place] [address] [place] [address] Ashli Yusuf, ANP [address] [place] [address] documented as of this encounter Results * PSA (06/27/2020 7:46 AM CDT) PSA 0.6 0.0 - 4.0 ng/mL [facility] Comment: Asim ECLIA methodology. According to the [place] U[employer], Serum PSA should decrease and [...] 5:36 AM CDT Performed at: ??01 - [employer] ??[id number] Call Center Rn: Andreas Garcia PhD, Phone: ??[phone] Mallorie Sheth NP CHEMISTRY ORDER KACEY [facility] [phone] * LIPID PANEL (06/27/2020 7:46 AM CDT) [...] 5:36 AM CDT Performed at: ??01 - [facility] [address] ??[id number] Call Center Rn: Andreas Garcia PhD, Phone: ??[phone] Mallorie Sheth NP CHEMISTRY ORDER KACEY [facility] [phone] * (ABNORMAL) COMPREHENSIVE METABOLIC PANEL (06/27/2020 7:46 [...] AM CDT Performed at: ??01 - [facility] [address] ??[id number] Call Center Rn: Andreas Garcia PhD, Phone: ??[phone] Mallorie Sheth LEAD ATHLETE CHEMISTRY ORDER KACEY [facility] [phone] documented in this encounter Visit Diagnoses Diagnosis Screening for condition- Primary Screening for unspecified condition Screening for condition- Primary Screening for unspecified condition documented in this encounter Care Teams Residential Supervisor Relationship Specialty Start Date End Date Jaya Ramos MD PCP - General Family Practice 06/15/19 12/06/21 documented as of this encounter
--- OUTSIDE RECORDS SUMMARY | 2024-08-19 03:22 | XMS_ITS | Encounter Summary ---
Author Organization [facility] Address [address] [place] [address] Care Team Providers Care Mill Dresser Name Role Phone Neela Negro DESCRIPTIVE CATALOG LIBRARIAN Primary Care Provider [phone] Reason for Visit * Reason Comments Immunization/Injection Encounter Details Date Type Department Care Team (Late Contact Info) Description 06/11/2019 9:15 AM CDT Immunization [facility] [employer] [address] [place] [address] Need for influenza vaccination (Primary Dx) Social [...] encounter Progress Notes * Monica Hobbs - 06/11/2019 11:08 AM CDT Pt received flu shot in left deltoid, pt tolerated well. Given by Callie. documented in this encounter Plan of Treatment Upcoming Encounters Date Type Department Care Team (Late Contact Info) Description 10/08/2024 1:30 PM PROPERTY SPECIALIST Office Visit [facility] [employer] [place] [address] [place] [address] Ashli Yusuf, ANP [address] [facility] [address] [place] [address] documented as of this encounter Visit Diagnoses Diagnosis Need for influenza vaccination- Primary Need for prophylactic vaccination and inoculation against influenza documented in this encounter Care Teams Mill Dresser Relationship Specialty Start Date End Date Neela Negro, DESCRIPTIVE CATALOG LIBRARIAN PCP - General NURSE PRACTITIONER 08/31/17 06/14/19 documented as of this encounter
--- OUTSIDE RECORDS SUMMARY | 2024-08-19 03:22 | XMS_ITS | Encounter Summary ---
Author Organization [facility] Address [address] [facility] Attn: Epic Prelude ADT [facility] [address] Care Team Providers Care Test Equipment Mechanic Name Role Phone Jaya Ramos MD Primary Care Provider Unava ilable Encounter Details Date Type Department Care Team (Latest Contact Info) Description 06/13/2020 Travel Social History Tobacco Use Types Packs/Day [...] st Contact Info) Description 10/08/2024 1:30 PM SWIMMING PROFESSOR Office Visit [facility] at Work [employer] [place] [address] [place] [address] Ashli Yusuf, ANP [address] [place] [address] documented as of this encounter Visit Diagnoses Not on filedocumented in this encounter Care Teams Test Equipment Mechanic Relationship Specialty Start Date End Date Jaya Ramos MD PCP - General Family Practice 06/15/19 12/06/21 documented as of this encounter
--- OUTSIDE RECORDS SUMMARY | 2024-08-19 03:22 | XMS_ITS | Encounter Summary ---
Author Organization [facility] Address [address] [place] [address] Care Team Providers Care Law Librarian Name Role Phone Jaya Ramos MD Primary Care Provider Amilcar alanis Encounter Details Date Type Department Care Team (Late Contact Info) Description 06/28/2020 Orders Only [facility] [employer] [place] [address] [place] [address] Mallorie Sheth, PATEL [address] [facility] [address] [place] [address] Elevated fasting glucose (Primary Dx) Social History Tobacco Use Types [...] (Late Contact Info) Description 10/08/2024 1:30 PM HOP PICKER Office Visit [facility] [employer] [place] [address] [place] [address] Ashli Yusuf, ANP [address] [place] [address] documented as of this encounter Results * HEMOGLOBIN A1C (07/04/2020 7:24 AM HOP PICKER) HEMOGLOBIN A1C 5.5 4.8 - 5.6 % [facility] Comment: ? Prediabetes: 5.7 - 6.4 ? Diabetes: >6.4 ? Glycemic control for adults with diabetes: <7.0 Blood 07/04/2020 7:24 AM HOP PICKER 07/04/2020 Narrative [facility] - 07/05/2020 4:35 AM HOP PICKER Performed at: ??01 - [facility] [address] ??[id number] Vice President Sales And Marketing: Andreas Garcia PhD, Phone: ??[phone] Mallorie Sheth AIRLINE PILOT FLIGHT INSTRUCTOR CHEMISTRY ORDER KACEY [facility] [phone] documented in this encounter Visit Diagnoses Diagnosis Elevated fasting glucose- Primary Impaired fasting glucose Elevated fasting glucose Impaired fasting glucose documented in this encounter Care Teams Law Librarian Relationship Specialty Start Date End Date Jaya Ramos MD PCP - General Family Practice 06/15/19 12/06/21 documented as of this encounter
--- OUTSIDE RECORDS SUMMARY | 2024-08-19 03:22 | XMS_ITS | Encounter Summary ---
Author Organization [facility] Address [address] [place] [address] Care Team Providers Care Junior Java Developer Name Role Phone Jaya Ramos MD Primary Care Provider Unava ilable Reason for Referral * Eval and Treat (Routine) - Closed Specialty Diagnoses / Procedures Referred By Contac t Referred To Contact Audiology Diagnoses Bilateral hearing loss, [place] [address] [place] [address] Makeda Ivy [employer] [address] [place] [address] Referral ID Status Reason Start Date Expiration Date Visits Requested Visits Authorized [id number] Closed Performing Department To Schedule (STL) 06/15/2019 06/15/2020 1 1 Reason for Visit * Reason Comments Referral referral to an audio logist to confirm my hearing loss, tinnitus & one other problem ??for the [facility] ([facility])and VA claim. And request a nexus letter that validates the previous Doctors finding. new CPAP mask. Encounter Details Date Type Department Care Team (Late st Contact Info) Description 06/15/2019 2:00 PM CDT Office Visit [facility] at [employer] [address] [address] [place] [address] [facility] [address] [place] [address] Bilateral hearing loss, unspecified hearing loss type (Primary Dx); Bilateral tinnitus Social History Tobacco Use Types Packs/Day Years [...] Sign Reading Time Taken Comments Blood Pressure 126/82 06/15/2019 2:00 PM CDT Pulse 70 06/15/2019 2:00 PM CDT Temperature 36.9 ??C (98.4 ??F) 06/15/2019 2:00 PM CD T Respiratory Rate 20 06/15/2019 2:00 PM CDT Oxygen Saturation 95% 06/15/2019 2:00 PM CDT Inhaled Oxygen Concentration - - Weight 116.6 kg (257 lb) 06/15/2019 2:00 PM CDT Height 172.7 cm (5' 8 ) 06/15/2019 2:00 PM CDT Body Mass Index 39.08 06/15/2019 2:00 PM CDT documented in this encounter Progress Notes * Mallorie Sheth NP - 06/15/2019 4:01 PM CDT HISTORY OF PRESENT ILLNESS Krish Leyva is a 58 y.o. male who presents for Chief Complaint Patient presents with ??? Referral referral to an lift slab operator to confirm my hearing loss, tinnitus & one other problem ??for the [facility] ([facility] administration)and VA claim. And request a nexus letter that validates the previous Doctors finding. new CPAP mask. Pt is seeking disability from the [facility] and needs a 2nd opinion/ hearing test. Requests audiology referral. Brings letter from previous hearing tests done. See scanned records. Has hearing loss and ringing in his ears secondary to loud noise exposure while in the . Has not had hearing appliances. Requests CPAP mask-needs a new mask. Has been getting his supplies. Past Medical History: Diagnosis Date ??? History of chicken pox ??? Measles ??? Mumps ??? Sleep apnea No current outpatient medications on file. No current facility-administered medications for this visit. No Known Allergies BP 126/82 (BP Location: Right arm, Patient Position (BP): Sitting, BP Cuff Size: Large Adult) Pulse 70 Temp 98.4 ??F (36.9 ??C) (Tympanic) Resp 20 Ht 5' 8 (1.727 m) Wt 116.6 kg (257 lb) SpO2 95% BMI 39.08 kg/m?? MEDICAL RECORD UPDATE Past Medical History: Diagnosis Date ??? History of chicken pox ??? Measles ??? Mumps ??? Sleep apnea Past Surgical History: Procedure Laterality Date ??? HX SEPTOPLASTY 1983 ??? HX SURGICAL OTHER 2012 bone spur removal Family History Problem Relation [...] and updated in computerized patient record. [id number] - [address] Care Providers: Patient Care Team: Jaya Ramos MD as PCP - General (Family Practice) No Patient Care Coordination Note on file. Vital signs/Tobacco use BP 126/82 (BP Location: Right arm, Patient Position (BP): Sitting, BP Cuff Size: Large Adult) Pulse 70 Temp 98.4 ??F (36.9 ??C) (Tympanic) Resp 20 Ht 5' 8 (1.727 m) Wt 116.6 kg (257 lb) SpO2 95% BMI 39.08 kg/m?? Blood Pressure BP Readings from Last 3 Encounters: 06/15/19 126/82 04/06/19 138/88 12/23/17 132/86 BMI POC (QM) Body mass index is 39.08 kg/m??. Normal BMI range: 18 & older: > or = 18.5 and < 25 Abnormal high BMI: Patient counseled on lifestyle modifications including weight loss and daily exercise. The 10-year CVD risk score (Collin'Sanjayino, et al., 2008) is: 9% Values used to calculate the score: Age: 58 years Sex: Male Diabetic: No Tobacco smoker: No Systolic Blood Pressure: 126 mmHg Is BP treated: No HDL Cholesterol: 49 mg/dL Total Cholesterol: 135 mg/dL Consider Statins if 10 year risk >7.5-10% Tobacco Use (QM) reports that he quit smoking about 21 years ago. His smoking use included cigarettes. He has a 25.00 pack-year smoking history. He has never used smokeless tobacco. He is not a tobacco user. DEPRESSION SCREENING (QM) PHQ2: Positive: PHQ-2 score > 2 or PHQ-9 score > 9 PHQ-2 Total: 0 (06/15/19 1400) His depression screen was normal EXAMINATION REVIEW OF SYSTEMS Review of Systems Constitutional: Negative. HENT: Positive for hearing loss and tinnitus. Respiratory: Negative. Negative for shortness of breath. Cardiovascular: Negative. Negative for chest pain. Genitourinary: Negative. Neurological: Negative. Negative for dizziness and tingling. Objective PHYSICAL EXAM Physical Exam Constitutional: Appearance: He is well-developed. HENT: Head: Normocephalic and atraumatic. Right Ear: Tympanic membrane and ear canal normal. Left Ear: Tympanic membrane and ear canal normal. There is impacted cerumen. Ears: Comments: Irrigated left ear with warm water per Jose Carlos Hobbs MA, successful removal of cerumen. Nose: Nose normal. Eyes: Conjunctiva/sclera: Conjunctivae normal. [...] Abdomen is soft. Tenderness: There is no tenderness. Hernia: No hernia is present. Skin: General: Skin is warm and dry. Neurological: Mental Status: He is alert and oriented to person, place, and time. No results found for any visits on 06/15/19 (from the past 24 hour(s)). ASSESSMENT and PLAN: Krish was seen today for referral. Diagnoses and all orders for this visit: Bilateral hearing loss, unspecified hearing loss type - AMB REFERRAL TO AUDIOLOGY Bilateral tinnitus Call DME for new CPAP mask. Referred to audiology. Scanned in forms he brought from previous hearing evals. Will need a summarywritten about his hearing loss for the [facility] after the next hearing test. Enc to seek medical tx for hearing loss as recommended. documented in this encounter Plan of Treatment Upcoming Encounters Date Type Department Care Team (Late st Contact Info) Description 10/08/2024 1:30 PM BANKING MANAGEMENT CONSULTING MANAGER Office Visit [facility] [employer] [place] [address] [place] [address] Ashli Yusuf, ANP [address] [facility] [address] [facility] [address] [place] [address] Scheduled Referrals Name Type Priority Associated Diagnoses Orde r Schedule AMB REFERRAL TO AUDIOLOGY Outpatient Referral Routine Bilateral hearing loss, unspecified hearing loss type Ordered: 06/15/2019 documented as of this encounter Visit Diagnoses Diagnosis Bilateral hearing loss, unspecified hearing loss type- Primary Bilateral tinnitus documented in this encounter Care Teams Junior Java Developer Relationship Specialty Start Date End Date Jaya Ramos MD PCP - General Family Practice 06/15/19 12/06/21 documented as of this encounter
--- OUTSIDE RECORDS SUMMARY | 2024-08-19 03:22 | XMS_ITS | Encounter Summary ---
Author Organization [facility] Address [address] [place] [address] Care Team Providers Care Medical Record Consultant Name Role Phone Jaya Ramos MD Primary Care Provider Amilcar alains Encounter Details Date Type Department Care Team (Late Contact Info) Description 01/16/2021 Orders Only [facility] at [facility] [place] [address] [place] [address] Neela Negro, POURING CRANE OPERATOR [address] [address] Uses continuous positive airway pressure (CPAP) ventilation at home (Primary Dx) Social History Tobacco Use Types [...] st Contact Info) Description 10/08/2024 1:30 PM EDUCATION PARAPROFESSIONAL Office Visit [facility] at Work [facility] [place] [address] [place] [address] Ashli Yusuf, ANP [address] [facility] [address] [facility] [address] [place] [address] documented as of this encounter Visit Diagnoses Diagnosis Uses continuous positive airway pressure (CPAP) ventilation at home- Primary documented in this encounter Care Teams Medical Record Consultant Relationship Specialty Start Date End Date Jaya Ramos MD PCP - General Family Practice 06/15/19 12/06/21 documented as of this encounter
--- OUTSIDE RECORDS SUMMARY | 2024-08-19 03:22 | XMS_ITS | Encounter Summary ---
Author Organization [facility] Address [address] [place] [address] Care Team Providers Care [employer] Music Teacher Name Role Phone Jaya Ramos MD Primary Care Provider Unava ilable Reason for Visit * Reason Onset Date Comments Hearing Problem 08/17/2019 Encounter Details Date Type Department Care Team (Late st Contact Info) Description 08/17/2019 Telephone [facility] [employer] [place] [address] [place] [id number] Mallorie Sheth, PATEL [address] [facility] [address] [place] [address] Hearing Problem Social History Tobacco Use Types Packs/Day Years [...] encounter Miscellaneous Notes * Telephone Encounter - Mallorie Sheth NP - 08/17/2019 9:28 AM HOME HEALTH PROVIDER ----- Message from SAMUEL Cole sent at 08/03/2019 3:06 PM HOME HEALTH PROVIDER ----- Regarding: RE: [place] patient with hearing loss That is wonderful news! I am happy to hear that he was able to get hearing aids. [facility] the [facility] is accepting outside records/hearing evaluations now and will work with him to obtain what he needs. Thanks for the update! Let me know if there is anything else I can do to help with his care. Makeda ----- Message ----- From: Mallorie Sheth NP Sent: 08/03/2019 11:00 AM HOME HEALTH PROVIDER To: SAMUEL Cole Subject: RE: [place] patient with hearing loss Thank you Dr Ivy. I read this message several days ago. I wanted to thank you for your time. He shared with me that the outcome of your visit resulted in him obtaining [employer] hearing aides the following week. He brought the brochure to show me but it sounds like he did not express interest at his appointment with you. ----- Message ----- From: Makeda Ivy AU.D Sent: 07/25/2019 12:39 PM HOME HEALTH PROVIDER To: Mallorie Sheth NP Subject: RE: [place] patient with hearing loss Good afternoon, Mr. Leyva also asked me to write a letter for him. He wanted me to say the hearing loss/tinnitus was due to his time in the -which I was unable to do. I did write him a letter stating what implications could come from his hearing loss such as the loss of clarity of speech especially in the presence of background noise. However, he is a great candidate for hearing aids which will definitely improve his speech understanding and will likely lessen his tinnitus too. He did not seem interested in talking about hearing aids at his appointment. The social security office does not deem a hearing loss as disabling unless the hearing is much more significant than Mr. Leyva's hearing loss (profound hearing loss). [facility]-however it is my understanding the [facility] will not even accept an outside hearing test with the purpose of getting disability so I am not even sure they will take what you or I write with any im portance. I explained this to Mr. Leyva but he still wanted to proceed with the hearing test. I actually have a co-worker who was recently hired and she previously worked at the [facility] and said they would toss any outside hearing tests/letters from outside providers and they only look at the pre and post hearing tests to determine disability. It is up to you if you want to write that his hearing loss is disabling but he would definitely benefit from hearing aids. It is also very hard to determine the cause of hearing loss. Lots of things play into the cause of hearing loss: noise exposure (was there any significant noise exposure outside of the ?), aging, family history, ect. I hope this helps! Let me know if you have any questions. ----- Message ----- From: Mallorie Sheth NP Sent: 07/25/2019 10:05 AM HOME HEALTH PROVIDER To: SAMUEL Cole Subject: [place] patient with hearing loss Dr Ivy, Thank you for seeing my patient Krish Leyva. I wanted to get your insights into his condition. He has asked me write a letter for him to submit to the in his pursuit of post service partialdisability related to his hearing loss/tinnitus. I reviewed his records from the and he was denied disability in 2013. The felt the change in his hearing from pre-service to post- service was not great enough to demonstrate his miliary exposure caused the decline. As I read through his records and your report, his hearing loss is moderate (with little change) and has tinnitus which the hearing aids you have prescribed should help with possibly both of these conditions. Did you feel his hearing loss was disabling? Thank you for your assistance. HEALTH PROVIDER documented in this encounter Plan of Treatment Upcoming Encounters Date Type Department Care Team (Late st Contact Info) Description 10/08/2024 1:30 PM HOME HEALTH PROVIDER Office Visit [facility] [employer] [place] [address] [place] [address] Ashli Yusuf, ANP [address] [facility] [address] [place] [address] documented as of this encounter Visit Diagnoses Not on filedocumented in this encounter Care Teams [employer] Music Teacher Relationship Specialty Start Date End Date Jaya Ramos MD PCP - General Family Practice 06/15/19 12/06/21 documented as of this encounter
--- OUTSIDE RECORDS SUMMARY | 2024-08-19 03:23 | XMS_ITS | Encounter Summary ---
Author Organization [facility] Address [address] [place] [address] Care Team Providers Care Bioinformatics Support Specialist Name Role Phone Neela Negro APPLICATION DEFENSE MANAGER Primary Care Provider [phone]- [phone] Reason for Visit * Reason Comments Fever of 101 last night Sinus Problem sinus drainage Encounter Details Date Type Department Care Team (Late st Contact Info) Description 08/31/2017 9:00 AM TECHNICAL SALES SUPPORT MANAGER Office Visit [facility] at [facility] [employer] [address] [place] [phone] [place] [address] [facility] [address] [place] [address] Influenza B (Primary Dx); Screening for condition; WALI (obstructive sleep apnea); Health care maintenance Social History Tobacco Use Types Packs/Day Years [...] Sign Reading Time Taken Comments Blood Pressure 132/82 08/31/2017 9:06 AM TECHNICAL SALES SUPPORT MANAGER Pulse 74 08/31/2017 9:06 AM TECHNICAL SALES SUPPORT MANAGER Temperature 37.6 ??C (99.7 ??F) 08/31/2017 9:06 AM CS T Respiratory Rate 18 08/31/2017 9:06 AM TECHNICAL SALES SUPPORT MANAGER Oxygen Saturation 95% 08/31/2017 9:06 AM TECHNICAL SALES SUPPORT MANAGER Inhaled Oxygen Concentration - - Weight 121.1 kg (267 lb) 08/31/2017 9:06 AM TECHNICAL SALES SUPPORT MANAGER Height 172.7 cm (5' 8 ) 08/31/2017 9:06 AM TECHNICAL SALES SUPPORT MANAGER Body Mass Index 40.6 08/31/2017 9:06 AM TECHNICAL SALES SUPPORT MANAGER documented in this encounter Progress Notes * Mallorie Sheth NP - 08/31/2017 9:34 AM CST HISTORY OF PRESENT ILLNESS Krish Leyva is a 56 y.o. male who presents for Chief Complaint Patient presents with ??? Fever of 101 last night ??? Sinus Problem sinus drainage For 8 days has been ill with runny nose, minimal cough. This am fever up to 101F with aching. States congestion and cough have not worsened. Denies known ill contacts, chest pain, SOB or wheezing. No vomiting or diarrhea. Denies abd pain or urinary symptoms. Requests new order for CPAP machine, his is over 10 years old. Past Medical History: Diagnosis Date ??? History of chicken pox ??? Measles ??? Mumps ??? Sleep apnea Current Outpatient Prescriptions Medication Sig Dispense Refill ??? oseltamivir (TAMIFLU) 75 mg capsule Take 1 Capsule (75 mg) by mouth 2 times daily for 5 days. 10 Capsule 0 ??? bi-level machine CWP with heated humidifier. Length of Need: 99 months Nasal with headgear 1 per 6 mo, mask only 1 per 3 mo,cushions per mo, Tubing heated 1 per 3 mo, water chamber 1 per 6 months, chin strap 1 per 6 months, filters disposable 2 per month, filters reusable 1 per 6 months. 1 Each0 No current facility-administered medications for this visit. No Known Allergies BP 132/82 (BP Location: Right arm, Patient Position (BP): Sitting, BP Cuff Size: Large Adult) Pulse 74 Temp 99.7 ??F (37.6 ??C) (Tympanic) Resp 18 Ht 5' 8 (1.727 m) Wt 121.1 kg (267 lb) SpO2 95% BMI 40.60 kg/m?? REVIEW OF SYSTEMS Review of Systems Constitutional: Positive for chills and fever. HENT: Positive for congestion, hearing loss and tinnitus. Negative for ear pain and sinus pain. Chronic tinnitus and hearing loss Eyes: Negative. Respiratory: Positive for cough. Negative for shortness of breath and wheezing. Cardiovascular: Negative. Genitourinary: Negative. Musculoskeletal: Positive for joint pain and myalgias. Skin: Negative. Neurological: Negative. Objective PHYSICAL EXAM Physical Exam Constitutional: He is oriented to person, place, and time. He appears well- developed and well-nourished. HENT: Head: Normocephalic and atraumatic. Right Ear: Tympanic membrane and ear canal normal. Left Ear: Ear canal normal. Nose: Rhinorrhea present. Right sinus exhibits no maxillary sinus tenderness and no frontal sinus tenderness. Left sinus exhibits no maxillary sinus tenderness and no frontal sinus tenderness. Mouth/Throat: Uvula is midline. Posterior oropharyngeal erythema present. Tonsils are 0 on the right. Tonsils are 0 on the left. No tonsillar exudate. Left ear canal impacted with cerumen Eyes: Conjunctivae and EOM are normal. Cardiovascular: Normal rate, regular rhythm, S1 normal, S2 normal and normal heart sounds. Exam reveals no gallop and no friction rub. No murmur heard. Pulmonary/Chest: Effort normal and breath sounds normal. No respiratory distress. He has no decreased breath sounds. He has no wheezes. He has no rhonchi. He has no rales. Lymphadenopathy: He has no cervical adenopathy. Neurological: He is alert and oriented to person, place, and time. Skin: Skin is warm and dry. No rash noted. Results for orders placed or performed in visit on 08/31/17 (from the past 24 hour(s)) POC INFLUENZA A AND B Result Value Ref Range POC INFLUENZA A AG Negative/Not Detected Negative/Not Detected POC INFLUENZA B AG Positive/Detected (A) Negative/Not Detected INTERNAL KIT QC Pass Pass KIT LOT NUMBER [id number] KIT EXPIRATION DATE ASSESSMENT and PLAN: Krish was seen today for fever and sinus problem. Diagnoses and all orders for this visit: Influenza B - oseltamivir (TAMIFLU) 75 mg capsule; Take 1 Capsule (75 mg) by mouth 2 times daily for 5 days. Screening for condition - POC INFLUENZA A AND B WALI (obstructive sleep apnea) Health care maintenance - LIPID PANEL; Future - CBC WITH DIFFERENTIAL; Future - COMPREHENSIVE METABOLIC PANEL; Future - TSH; Future - GGT; Future - VITAMIN D 25 HYDROXY; Future Other orders - bi-level machine; CWP with heated humidifier. Length of Need: 99 months Nasal with headgear 1 per6 mo, mask only 1 per 3 mo,cushions per mo, Tubing heated 1 per 3 mo, water chamber 1 per 6 months,chin strap 1 per 6 months, filters disposable 2 per month, filters reusable 1 per 6 months. Rapid influenza was positive for flu B. Within 48 hr window of onset of sx, so will initiate Tamiflu as prescribed. Reviewed supportive cares- push fluids, rest, IBU and tylenol prn fever/pain. Discussed appropriatedosing. Given educational handout on home measures and prevention on spreading illness. Pt verbalized understanding and all questions were answered. Faxed order for CPAP to [facility] [place] [phone] Return for labs, return for lab follow up NICAL SALES SUPPORT MANAGER documented in this encounter Plan of Treatment Upcoming Encounters Date Type Department Care Team (Late st Contact Info) Description 10/08/2024 1:30 PM TECHNICAL SALES SUPPORT MANAGER Office Visit [facility] [employer] [place] [address] [place] [address] Ashli Yusuf, ANP [address] [facility] [address] [place] [address] documented as of this encounter Procedures Procedure Name Priority Date/Time Associated Diagnosis Comments POC INFLUENZA A AND B ANTIGEN Routine 08/31/2017 9:22 AM TECHNICAL SALES SUPPORT MANAGER Screening for condition documented in this encounter Results * (ABNORMAL) VITAMIN D 25 HYDROXY (12/23/2017 7:20 AM CDT) VITAMIN D 25 HYDROXY 20.9(L) 30.0 - 100.0 ng/mL [facility] Comment: Vitamin D deficiency has been defined by the [place] of [employer] and an Endocrine Society practice guideline as a level of serum 25-OH vitamin D less than 20 ng/mL (1,2). The Endocrine Society went on to further define vitamin D insufficiency as a level between 21 and 29 ng/mL (2). 1. IOM ([place] of [employer]). 2010. Dietary reference ?? intakes for calcium and D. [place]: The ?? National Academies Press. 2. Chad MF, Dagmar NC, Axel MONTERROSO, et al. ?? Evaluation, treatment, and prevention of vitamin D ?? deficiency: an Endocrine Society clinical practice ?? guideline. JCEM. 2010; 96(3):1911-30. Blood 12/23/2017 7:20 AM CDT 12/23/2017 Narrative [facility] - 12/24/2017 7:37 AM CDT Performed at: ??01 - [address] ??[id number] Career Based Intervention Coordinator: Andreas Garcia PhD, Phone: ??[phone] Mallorie Sheth NP CHEMISTRY ORDER KACEY Performing Organization Address [facility] Co de Phone Number [facility] * GGT (12/23/2017 7:20 AM CDT) GGT 54 0 - 65 IU/L [facility] Blood 12/23/2017 7:20 AM CDT 12/23/2017 Narrative [facility] - 12/24/2017 8:37 AM CDT Performed at: ?? [address] ??[id number] Career Based Intervention Coordinator: Andreas Garcia PhD, Phone: ??[phone] Mallorie Sheth NP CHEMISTRY ORDER KACEY Performing Organization Address [facility] Co de Phone Number [facility] * TSH (12/23/2017 7:20 AM CDT) TSH 2.980 0.450 - 4.500 uIU/mL [facility] Blood 12/23/2017 7:20 AM CDT 12/23/2017 Narrative [facility] - 12/24/2017 6:37 AM CDT Performed at: ??01 - [facility] [address] ??[id number] Career Based Intervention Coordinator: Andreas Garcia PhD, Phone: ??[phone] Mallorie Candace Meryl APPLICATION DEFENSE MANAGER CHEMISTRY ORDER KACEY [facility] * (ABNORMAL) COMPREHENSIVE METABOLIC PANEL (12/23/2017 7:20 AM CDT) GLUCOSE 106(H) 65 - 99 mg/dL [facility] BUN 19 6 - 24 mg/dL [facility] CREATININE 1.03 0.76 - 1.27 mg/dL [facility] GFR 79 >59 mL/min/1.7 3 [facility] GFR, 91 >59 mL/min/1.7 3 [facility] BUN/CREAT RATIO 18 9 - 20 [facility] SODIUM 142 134 - 144 mmol/L [facility] POTASSIUM 5.2 3.5 - 5.2 mmol/L [facility] CHLORIDE 103 96 - 106 mmol/L [facility] CO2 19 18 - 29 mmol/L [facility] CALCIUM 9.1 8.7 - 10.2 mg/dL [facility] TOTAL PROTEIN 7.4 6.0 - 8.5 g/dL [facility] ALBUMIN 4.7 3.5 - 5.5 g/dL [facility] GLOBULIN 2.7 1.5 - 4.5 g/dL [facility] ALBUMIN/GLOBULIN RATIO 1.7 1.2 - 2.2 [facility] BILIRUBIN TOTAL 0.6 0.0 - 1.2 mg/dL [facility] ALKALINE PHOSPHATASE 54 39 - 117 IU/L [facility] AST 44(H) 0 - 40 IU/L [facility] ALT 43 0 - 44 IU/L [facility] Blood 12/23/2017 7:20 AM CDT 12/23/2017 Narrative [facility] - 12/24/2017 5:36 AM CDT Performed at: ??01 - [facility] [address] ??[id number] Career Based Intervention Coordinator: Andreas Garcia PhD, Phone: ??[phone] Mallorie Candace Meryl APPLICATION DEFENSE MANAGER CHEMISTRY ORDER KACEY [facility] * CBC WITH DIFFERENTIAL (12/23/2017 7:20 AM CDT) WBC 6.3 3.4 - 10.8 x10E3/uL [facility] RBC 4.84 4.14 - 5.80 x10E6/uL [facility] HEMOGLOBIN 15.5 13.0 - 17.7 g/dL [facility] HEMATOCRIT 46.1 37.5 - 51.0 % [facility] MCV 95 79 - 97 fL [facility] MCH 32.0 26.6 - 33.0 pg [facility] MCHC 33.6 31.5 - 35.7 g/dL [facility] RDW 14.2 12.3 - 15.4 % [facility] PLATELETS 176 150 - 379 x10E3/uL [facility] NEUTROPHIL 63 Not Estab. % [facility] LYMPHOCYTES 25 Not Estab. % [facility] MONOCYTE 9 Not Estab. % [facility] EOSINOPHILS 3 Not Estab. % [facility] BASOPHILS 0 Not Estab. % [facility] NEUTROPHIL ABSOLUTE 3.9 1.4 - 7.0 x10E3/uL [facility] LYMPHOCYTE ABSOLUTE 1.6 0.7 - 3.1 x10E3/uL [facility] MONOCYTE ABSOLUTE 0.6 0.1 - 0.9 x10E3/uL [facility] EOSINOPHIL ABSOLUTE 0.2 0.0 - 0.4 x10E3/uL [facility] BASOPHILS ABSOLUTE 0.0 0.0 - 0.2 x10E3/uL [facility] IMMATURE GRANULOCYTES 0 Not Estab. % [facility] IMMATURE GRANULOCYTES ABSOLUTE 0.0 0.0 - 0.1 x10E3/uL [facility] Blood 12/23/2017 7:20 AM CDT 12/23/2017 Narrative [facility] - 12/24/2017 4:37 AM CDT Performed at: ??01 - [facility] [address] ??[id number] Career Based Intervention Coordinator: Andreas Garcia PhD, Phone: ??[phone] Mallorie Sheth NP HEMATOLOGY ORDE SANDY Performing Organization Address [facility] Co de Phone Number [facility] * LIPID PANEL (12/23/2017 7:20 AM CDT) CHOLESTEROL 148 100 - 199 mg/dL [facility] TRIGLYCERIDE 61 0 - 149 mg/dL [facility] HDL 47 >39 mg/dL [facility] VLDL CHOLESTEROL, CALCULATED 12 5 - 40 mg/dL [facility] LDL CALCULATED 89 0 - 99 mg/dL [facility] Blood 12/23/2017 7:20 AM CDT 12/23/2017 Narrative [facility] - 12/24/2017 6:37 AM CDT Performed at: ??01 - [facility] [address] ??[id number] Career Based Intervention Coordinator: Andreas Garcia PhD, Phone: ??[phone] Mallorie Sheth NP CHEMISTRY ORDER KACEY Performing Organization Address [facility] de Phone Number [facility] * (ABNORMAL) POC INFLUENZA A AND B (08/31/2017 9:22 AM TECHNICAL SALES SUPPORT MANAGER) INFLUENZA A AG POC Negative/Not Detected Negative/Not Detected [facility] [place] INFLUENZA B AG POC Positive/Det ected(A) Negative/Not Detected [facility] [place] INTERNAL KIT QC Pass Pass [facility] [place] KIT LOT NUMBER POC [id number] [facility] [place] EXPIRATION DATE POC 12/2018 [facility] [place] Upper respiratory specimen (specimen) ENTIRE NASOPHARYNX / Unknown 08/31/2017 9:22 AM TECHNICAL SALES SUPPORT MANAGER Mallorie Sheth NP POINT OF CARE T ESTING Performing Organization Address City/[facility]/ZIP Co de Phone Number [facility] [place] CLIA# [id number] [address] [place] [address] documented in this encounter Visit Diagnoses Diagnosis Influenza B- Primary Influenza with other respiratory manifestations Screening for condition Screening for unspecified condition WALI (obstructive sleep apnea) Obstructive sleep apnea (adult) (pediatric) Health care maintenance Unspecified general medical examination Screening for condition- Primary Screening for unspecified condition Health care maintenance Unspecified general medical examination documented in this encounter Care Teams Bioinformatics Support Specialist Relationship Specialty Start Date End Date Neela Negro NP PCP - General NURSE PRACTITIONER 08/31/17 06/14/19 documented as of this encounter
--- OUTSIDE RECORDS SUMMARY | 2024-08-19 03:23 | XMS_ITS | Encounter Summary ---
Author Organization [facility] Address [address] [place] [address] Care Team Providers Care Handbag Operator Name Role Phone Neela Negro VP [employer] Primary Care Provider +1- [phone] Reason for Visit * Reason Comments Immunization/Injection 2nd shingrix Encounter Details Date Type Department Care Team (Latest Contact Info) Description 02/27/2018 3:40 PM CDT Clinical Support [facility] [employer] [address] [place] [address] Need for shingles vaccine (Primary Dx) Social History Tobacco Use Types [...] encounter Progress Notes * Monica Hobbs - 02/27/2018 3:47 PM CDT Pt came in for 2nd shingrix imm. Tolerated well. documented in this encounter Plan of Treatment Upcoming Encounters Date Type Department Care Team (Late st Contact Info) Description 10/08/2024 1:30 PM HANDBAG OPERATOR Office [facility] [employer] [facility] [address] [place] [address] Ashli Yusuf, ANP [address] [address] [facility] [address] [place] [address] documented as of this encounter Visit Diagnoses Diagnosis Need for shingles vaccine- Primary Need for prophylactic vaccination and inoculation against varicella documented in this encounter Care Teams Handbag Operator Relationship Specialty Start Date End Date Neeal Negro, VP [employer] PCP - General NURSE PRACTITIONER 08/31/17 06/14/19 documented as of this encounter
--- OUTSIDE RECORDS SUMMARY | 2024-08-19 03:23 | XMS_ITS | Encounter Summary ---
Author Organization [facility] Address [address] [place] [address] Care Team Providers Care Booking Manager Name Role Phone Neela Negro NP Primary Care Provider [phone]- [phone] Reason for Visit * Reason Comments Knee Pain Pt states he has bee n having left knee pain X 3 weeks. Encounter Details Date Type Department Care Team (Late st Contact Info) Description 12/23/2017 3:20 PM CDT Office Visit [facility] [employer] [address] [place] [id number] Mallorie Sheth, PATEL [address] [facility] [address] [place] [address] Wellness examination (Primary Dx); Need for shingles vaccine; Acute pain of left knee; Family history of colon cancer Social History Tobacco Use Types Packs/Day Years Used Date Smoking Tobacco: Former Cigarettes Q uit: 03/02/1998 Smokeless Tobacco: Never Tobacco Cessation:Counseling Given: No Alcohol Use Standard Drinks/Week Comments Yes 0 (1 standard drink = 0.6 oz pur e alcohol) weekends Sex and Gender Information Value Date Recorded Sex Assigned at Not on file Gender Identity Not on file Sexual Orientation Not on file documented as of this encounter Last Filed Vital Signs Vital Sign Reading Time Taken Comments Blood Pressure 132/86 12/23/2017 3:24 PM CDT Pulse 83 12/23/2017 3:24 PM CDT Temperature 37.6 ??C (99.6 ??F) 12/23/2017 3:24 PM C DT Respiratory Rate 18 12/23/2017 3:24 PM CDT Oxygen Saturation 96% 12/23/2017 3:24 PM CDT Inhaled Oxygen Concentration - - Weight 118.4 kg (261 lb) 12/23/2017 3:24 PM CDT Height 172.7 cm (5' 8 ) 12/23/2017 3:24 PM CDT Body Mass Index 39.68 12/23/2017 3:24 PM CDT documented in this encounter Progress Notes * Mallorie Sheth NP - 12/23/2017 3:54 PM CDT HISTORY OF PRESENT ILLNESS Krish Leyva is a 57 y.o. male who presents for Chief Complaint Patient presents with ??? Knee Pain Pt states he has been having left knee pain X 3 weeks. Has been having left knee pain x 3 weeks with a few episodes of mild locking. Has been walking. No swelling. Having accupuncture with relief of pain-no pain today. Walks daily. Denies falls, injuries. Diet is not very healthy, does not watch his diet closely. Sees his PCP regularly and has health maintenance done. Last colonoscopy 2 years ago, sees GI since his brother had colon ca. PSA drawn today, denies reduced urinary stream or blood in urine. Past Medical History: Diagnosis Date ??? History of chicken pox ??? Measles ??? Mumps ??? Sleep apnea No current outpatient prescriptions on file. No current facility-administered medications for this visit. No Known Allergies BP 132/86 (BP Location: Left arm, Patient Position (BP): Sitting, BP Cuff Size: Large Adult) Pulse 83 Temp 99.6 ??F (37.6 ??C) (Tympanic) Resp 18 Ht 5' 8 (1.727 m) Wt 118.4 kg (261 lb) SpO2 96% BMI 39.68 kg/m?? REVIEW OF SYSTEMS Review of Systems Constitutional: Negative. HENT: Negative. Respiratory: Negative. Negative for shortness of breath. Cardiovascular: Negative for chest pain. Gastrointestinal: Negative. Musculoskeletal: Positive for joint pain. Skin: Negative. Neurological: Negative. Psychiatric/Behavioral: Negative. ANNUAL WELLNESS Krish Leyva is a 57 y.o. male here today for his Knee Pain (Pt states he has been having left kneepain X 3 weeks. ) HEALTH RISK ASSESSMENT He has completed his Health Risk Assessment. I have reviewed this with the patient. See scanned copy in chart. Areas of self-identified risk are addressed below. In general, the patient feels they are in very good physical health. MEDICAL RECORD UPDATE Past Medical History: Diagnosis Date ??? History of chicken pox ??? Measles ??? Mumps ??? Sleep apnea Past Surgical History: Procedure Laterality Date ??? HX SEPTOPLASTY 1983 ??? HX SURGICAL OTHER 2013 bone spur removal Family History Problem Relation Age of Onset ??? Heart Disease Father ??? Hypertension Father ??? Heart Attack Father ??? Aneurysm Mother ??? Cancer Sister ??? Breast Cancer Sister ??? Colon Cancer Brother ??? Unknown Maternal Grandmother ??? Unknown Maternal Grandfather ??? Hypertension Paternal Grandmother ??? Hypertension Paternal Grandfather ??? Aneurysm Sister Current medications and allergies were reviewed and updated in computerized patient record. [id number] [address] [facility] Care Providers: Patient Care Team: Neela Negro NP as PCP - General (NURSE PRACTITIONER) No Patient Care Coordination Note on file. DEPRESSION SCREENING (QM) PHQ2: Positive: PHQ-2 score > 2 or PHQ-9 score > 9 His depression screen was normal EXAMINATION BP 132/86 (BP Location: Left arm, Patient Position (BP): Sitting, BP Cuff Size: Large Adult) Pulse 83 Temp 99.6 ??F (37.6 ??C) (Tympanic) Resp 18 Ht 5' 8 (1.727 m) Wt 118.4 kg (261 lb) SpO2 96% BMI 39.68 kg/m?? Blood Pressure BP Readings from Last 3 Encounters: 12/23/17 132/86 12/23/17 (!) 150/90 08/31/17 132/82 BMI POC Body mass index is 39.68 kg/m??. Normal BMI range: 18 & older: > or = 18.5 and < 25 Abnormal high BMI: Patient counseled on lifestyle modifications including weight loss and daily exercise. Visual Acuity Not performed Nursing Visual Acuity Documentation: Hearing screen Degree of hearing loss: normal FUNCTIONAL ABILITY AND SAFETY Pain Assessment Are you having pain right now? No Abuse screen/ and home safety evaluation Negative Social Support/Mcewen: Patient resides with spouse in independent living. Activities of Daily Living: Requires assistance with no ADLs Adult Nutritional Screen No nutritional concerns and Overweight/obesity Tobacco Use(QM) reports that he quit smoking about 19 years ago. He has never used smokeless tobacco. He is not a tobacco user. Alcohol Use reports that he drinks alcohol. Exercise/Other Exercise: daily PREVENTIVE CARE GUIDELINES Written Screening Schedule for the next 5-10 years developed and provided to patient. Preventive Care Recommendations for AVERAGE Risk Adult Males Recommended Measure Frequency Strength Annual Exam / Wellness Yearly Abdominal Aortic Aneurysm All males 65-75 with ANY smoking history B Lipid Screening All males >35 with additional cardiovascular risk factor / frequently suggested as every 5 years A Colon Cancer screening Colonoscopy every 10 years or Fecal Occult Blood testing yearly A Immunizations Influenza yearly Pneumococcal once after 65 Zostavax once after age 60 B Diabetes screening Screening recommended adults with BP >135/80 frequency is indeterminate B Blood Pressure screening Yearly A There are no preventive care reminders to display for this patient. ORDERS / REFERRALS / COUNSELING AND FOLLOW-UP Based upon these findings and review of any previous Wellness Visit recommendations the following treatment plan was recommended and discussed with the patient. No previously unaddressed health riskswere detected. Recommended continuing current level of support, with repeat assessment in 1 year orsooner as needed. Orders Placed This Encounter ??? ZOSTER RECOMB ADJUV 50+ PF IM Education and counseling provided: Age appropriate based on today's review and evaluation Mr. Leyva voiced understanding and agreement with the treatment plan. He understands the importanceof taking his medications and keeping follow-up appointments. All questions were answered. Zirap-Iarid-Hihbcsw will be provided to patient upon check-out. ACUTE AND/OR CHRONIC ISSUES REQUIRING EVALUATION AND MANAGEMENT OUTSIDE THE WELLNESS VISIT Yes: Per E&M documentation: Objective PHYSICAL EXAM Physical Exam Constitutional: He is oriented to person, place, and time. He appears well- developed and well-nourished. HENT: Head: Normocephalic and atraumatic. Right Ear: Tympanic membrane and ear canal normal. Left Ear: Tympanic membrane and ear canal normal. Nose: Nose normal. Mouth/Throat: Uvula is midline and oropharynx is clear and moist. Eyes: Conjunctivae and EOM are normal. Neck: No thyroid mass and no thyromegaly present. Cardiovascular: Normal rate, regular rhythm, S1 normal, S2 normal and normal heart sounds. Exam reveals no gallop and no friction rub. No murmur heard. Pulmonary/Chest: Effort normal and breath sounds normal. No respiratory distress. He has no wheezes. He has no rales. Abdominal: Soft. Normal appearance and bowel sounds are normal. There is no hepatosplenomegaly. There is no tenderness. Musculoskeletal: Left knee: Normal. He exhibits normal range of motion, no swelling, no effusion, no bony tenderness, normal meniscus and no MCL laxity. No medial joint line, no MCL, no LCL and no patellar tendon tenderness noted. No popliteal cyst, neg Lachmans. ROM intact Lymphadenopathy: He has no cervical adenopathy. Neurological: He is alert and oriented to person, place, and time. Skin: Skin is warm and dry. No rash noted. No results found for any visits on 12/23/17 (from the past 24 hour(s)). ASSESSMENT and PLAN: Krish was seen today for knee pain. Diagnoses and all orders for this visit: Wellness examination Need for shingles vaccine - ZOSTER RECOMB ADJUV 50+ PF IM Acute pain of left knee no pain to left knee today, normal exam. Call if pain returns and persists for xray. May apply waleska wrap, elevate, ice, Ibuprofen prn for pain if needed. Suspect mild arthritis-hx of this in right knee. Discussed with pt healthy diet including adding fruits, vegetables to diet. Increase fiber in diet,whole grain cereals and bread. Lean meats, low saturated fat diet. Limit concentrated sweets, carbs. Aerobic exercise recommended 30 min a day for at least 5 days a week. Start with 3 days a week and work up to goal. Stop if any SOB, chest pain or dizziness. Shingrix #1 given. TDAP UTD. Labs done this am, pending. documented in this encounter Plan of Treatment Upcoming Encounters Date Type Department Care Team (Late st Contact Info) Description 10/08/2024 1:30 PM SOFTWARE ENGINEER BACKEND Office Visit [facility] [employer] [place] [address] [place] [address] Ashli Yusuf, ANP [address] [place] [address] documented as of this encounter Visit Diagnoses Diagnosis Wellness examination- Primary Need for shingles vaccine Need for prophylactic vaccination and inoculation against varicella Acute pain of left knee Family history of colon cancer Family history of malignant neoplasm of gastrointestinal tract documented in this encounter Care Teams Booking Manager Relationship Specialty Start Date End Date Neela Negro NP PCP - General NURSE PRACTITIONER 08/31/17 06/14/19 documented as of this encounter
--- OUTSIDE RECORDS SUMMARY | 2024-08-19 03:23 | XMS_ITS | Encounter Summary ---
Author Organization [facility] Address [address] [place] [address] Care Team Providers Care Protective Signal Repairer Name Role Phone Neela Negro MALE INFERTILITY SPECIALIST Primary Care Provider [phone]- [phone] Encounter Details Date Type Department Care Team (Late Contact Info) Description 09/07/2017 Orders Only [facility] [address] [place] [address] Provider, Abstract NO ADDRESS ON FILE Social [...] Upcoming Encounters Date Type Department Care Team ([facility] Contact Info) Description 10/08/2024 1:30 PM METAL COATER OPERATOR Office Visit [facility] [employer] [employer] [address] [place] [address] Ashli Yusuf, ANP [address] [address] [place] [address] documented as of this encounter Procedures Procedure Name Priority Date/Time Associated Diagnosis Comments MISCELLANEOUS LAB TEST Routine 12/24/2016 documented in this encounter Results * MISCELLANEOUS LAB TEST (12/24/2016) Abstract Provider CHEMISTRY ORDERABLES [facility] CLIA# [id number] [address] documented in this encounter Visit Diagnoses Not on filedocumented in this encounter Care Teams Protective Signal Repairer Relationship Specialty Start Date End Date Neela Negro, PATEL PCP - General NURSE PRACTITIONER 08/31/17 06/14/19 documented as of this encounter
--- OUTSIDE RECORDS SUMMARY | 2024-08-19 03:23 | XMS_ITS | Encounter Summary ---
Author Organization [facility] Address [address] [place] [address] Care Team Providers Care Police Captain Senior Name Role Phone Neela Negro NP Primary Care Provider [phone]- [phone] Reason for Visit * Reason Comments Labs Only Encounter Details Date Type Department Care Team ([facility] st Contact Info) Description 12/23/2017 7:00 AM CDT Office Visit [facility] [employer] [address] [place] [phone] Screening for condition (Primary Dx); Health care maintenance Social History Tobacco Use [...] Sign Reading Time Taken Comments Blood Pressure 150/90 12/23/2017 7:18 AM CDT Pulse 62 12/23/2017 7:18 AM CDT Temperature - - Respiratory Rate - - Oxygen Saturation - - Inhaled Oxygen Concentration - - Weight 118.4 kg (261 lb) 12/23/2017 7:18 AM CDT Height 172.7 cm (5' 8 ) 12/23/2017 7:18 AM CDT Body Mass Index 39.68 12/23/2017 7:18 AM CDT documented in this encounter Progress Notes * Rose Marie Bonds - 12/23/2017 7:19 AM CDT Annual wellness screening. Left AC successful 1 stick. Pt tolerated well. BP elevated. Pt has an appointment this afternoon to check out his knee so he will follow up BP at that time. documented in this encounter Plan of Treatment Upcoming Encounters Date Type Department Care Team (Late st Contact Info) Description 10/08/2024 1:30 PM RIG HAND Office Visit [facility] at [facility] [employer] [place] [address] [facility] [place] [place] [address] Ashli Yusuf, ANP [address] [place] [address] documented as of this encounter Procedures Procedure Name Priority Date/Time Associated Diagnosis Comments CBC WITH DIFFERENTIAL Routine 12/23/2017 7:20 AM CDT Health care maintenance VITAMIN D 25 HYDROXY Routine 12/23/2017 7:20 AM CDT Health care maintenance TSH Routine 12/23/2017 7:20 AM CDT Health care maintenance PSA Routine 12/23/2017 7:20 AM CDT Screening for condition GGT Routine 12/23/2017 7:20 AM CDT Health care maintenance LIPID PANEL Routine 12/23/2017 7:20 AM CDT Health care maintenance COMPREHENSIVE METABOLIC PANEL Routine 12/23/2017 7:20 AM CDT Health care maintenance documented in this encounter Results * (ABNORMAL) VITAMIN D 25 HYDROXY (12/23/2017 7:20 AM CDT) VITAMIN D 25 HYDROXY 20.9(L) 30.0 - 100.0 ng/mL [facility] Comment: Vitamin D deficiency has been defined by the [employer] of [employer] and an Endocrine Society practice guideline as a level of serum 25-OH vitamin D less than 20 ng/mL (1,2). The Endocrine Society went on to further define vitamin D insufficiency as a level between 21 and 29 ng/mL (2). 1. IOM ([employer] of Medicine). 2010. Dietary reference ?? intakes for calcium and D. [place]: The ?? National AcademLocus Labs Press. 2. Chad MF, Dagmar SANTANA, Axel MONTERROSO, et al. ?? Evaluation, treatment, and prevention of vitamin D ?? deficiency: an Endocrine Society clinical practice ?? guideline. JCEM. 2010; 96(3):1911-30. Blood 12/23/2017 7:20 AM CDT 12/23/2017 Narrative [facility] - 12/24/2017 7:37 AM CDT Performed at: ??01 - [address] ??[id number] Chemical Dependency Professional: Andreas Garcia PhD, Phone: ??[phone] Mallorie Sheth NP CHEMISTRY ORDER KACEY Performing Organization Address [facility] Co de Phone Number [facility] * GGT (12/23/2017 7:20 AM CDT) GGT 54 0 - 65 IU/L [facility] Blood 12/23/2017 7:20 AM CDT 12/23/2017 Narrative [facility] - 12/24/2017 8:37 AM CDT Performed at: ??01 - [address] ??[id number] Chemical Dependency Professional: Andreas Garcia PhD, Phone: ??[phone] Mallorie Sheth NP CHEMISTRY ORDER KACEY Performing Organization Address [facility] Co de Phone Number [facility] * TSH (12/23/2017 7:20 AM CDT) TSH 2.980 0.450 - 4.500 uIU/mL [facility] Blood 12/23/2017 7:20 AM CDT 12/23/2017 Narrative [facility] - 12/24/2017 6:37 AM CDT Performed at: ??01 - [facility] ??[id number] Chemical Dependency Professional: Andreas Garcia PhD, Phone: ??[phone] Mallorie Candace Sheth VENEER JOINTER OFFBEARER CHEMISTRY ORDER KACEY [facility] * (ABNORMAL) [...] AM CDT Performed at: ??01 - [facility] [address], [place], [place] ??[id number] Chemical Dependency Professional: Andreas Garcia PhD, Phone: ??[phone] Mallorie Candace Meryl VENEER JOINTER OFFBEARER CHEMISTRY ORDER KACEY [facility] * CBC [...] AM CDT Performed at: ??01 - [facility] [address] ??[id number] Chemical Dependency Professional: Andreas Garcia PhD, Phone: ??[phone] Mallorie Sheth NP HEMATOLOGY ORDE RABLES Performing Organization Address [facility] Co de Phone Number [facility] * [...] AM CDT Performed at: ??01 - [facility] [address] ??[id number] Chemical Dependency Professional: Andreas Garcia PhD, Phone: ??[phone] Mallorie Sheth NP CHEMISTRY ORDER KACEY Performing Organization Address [facility] de Phone Number [facility] * PSA (12/23/2017 7:20 AM CDT) PSA 0.8 0.0 - 4.0 ng/mL [facility] Comment: Asim ECLIA methodology. According to the [place] [employer], Serum PSA should decrease and [...] presence or absence of malignant disease. Blood 12/23/2017 7:20 AM CDT 12/23/2017 Narrative [facility] - 12/24/2017 5:36 AM CDT Performed at: ?? - [facility] [address] ??[id number] Chemical Dependency Professional: Andreas Garcia PhD, Phone: ??[phone] Mallorie Sheth NP CHEMISTRY ORDER KACEY [facility] documented in this encounter Visit Diagnoses Diagnosis Screening for condition- Primary Screening for unspecified condition Health care maintenance Unspecified general medical examination documented in this encounter Care Teams Police Captain Senior Relationship Specialty Start Date End Date Neela Negro NP PCP - General NURSE PRACTITIONER 08/31/17 06/14/19 documented as of this encounter
== END 2024-08-13 08:05 | disposition home or self-care (01) ==
PROVIDERS: PCP Nurse Practitioner Adult Health; Visit Provider Nurse Practitioner Adult Health
DX: I10 Essential (primary) hypertension (principal); Z87.891 Personal history of nicotine dependence
CPT/HCPCS: 76775